=== PATIENT | male | born 1960 | race Caucasian/White ===

== ENCOUNTER → 2017-06-11 | Outpatient (CLI) | payer BC ==
--- NOTE | 2017-06-11 15:54 | XR ---
EXAMINATION TYPE: XR chest 2V DATE OF EXAM: 06/11/2017 COMPARISON: 04/30/2016 HISTORY: Fall and left-sided rib pain TECHNIQUE: Frontal and lateral views of the chest are obtained. FINDINGS: There is no focal air space opacity, pleural effusion, or pneumothorax seen. The cardiac silhouette size is within normal limits. No displaced fractures are seen. Right pulmonary vasculature is accentuated secondary to patient rotation and positioning. There is slight eventration of the rig ht hemidiaphragm incidentally noted. IMPRESSION: No acute cardiopulmonary process. If there is further concern for left rib fracture rib series could be performed.
--- NOTE | 2017-06-11 16:16 | CT ---
EXAMINATION TYPE: CT brain cspine wo con DATE OF EXAM: 06/11/2017 COMPARISON: NONE HISTORY: Fall yesterday with Left sided injury. CT DLP: 1508.2 mGycm. Automated Exposure Control for Dose Reduction was Utilized. TECHNIQUE: CT scan of the head and cervical spine are performed without contrast. FINDINGS: There is no acute intracranial hemorrhage, mass effect, or midline shift identified. The ventricles and sulci are within normal limits in size. The globes are intact. Mild mobility is seen within the right maxillary sinus and within the ethmoid sinuses. Scant mucosal thickening is also se en within the left maxillary sinus. Remaining paranasal sinuses are well aerated. Right vertebral art antonia is dominant with a diminutive left vertebral artery noted. Cervical spine is visualized in its entirety from C1 through upper thoracic levels and demonstrates s atisfactory alignment without evidence of acute fracture or dislocation. Multilevel mild degenerative change of the cervical spine is displayed as small posterior osteophyte complexes at C5-C6 and C6-C7 without canal stenosis. Prevertebral soft tissue appears within normal limits. The C1-C2 articulati on is unremarkable. IMPRESSION: 1. There is no acute fracture or dislocation evident in the cervical spine. 2. No acute intracranial hemorrhage, mass effect, or midline shift is seen. Mild paranasal sinus dise ase.
== END | disposition home or self-care (01) ==
LOC: RADCTMAIN 15:10
PROVIDERS: ATTEND Physician Assistant
DX: S09.90XA Unspecified injury of head, initial encounter (principal); R05 Cough
CPT/HCPCS: 70450; 71046; 72125

== ENCOUNTER → 2017-09-04 | Outpatient (CLI) | payer BC ==
[2017-09-04 15:03] LABS: Appearance,Urine Clear (Clear); Bilirubin,Urine Negative (Negative); Blood,Urine Negative (Negative); Color,Urine Yellow; Glucose,Urine (UA) Negative (Negative); Ketones,Urine Negative (Negative); Leukocyte Esterase,Urine Negative (Negative); Nitrite,Urine Negative (Negative); Protein,Urine Trace (Negative); Urobilinogen,Urine <2.0 mg/dL (<2.0)
[2017-09-04 15:05] LABS: HCT 44.4 % (39.0-53.0); HGB 15.6 gm/dL (13.0-17.5); MCH 32.7 pg (25.0-35.0); MCHC 35.1 g/dL (31.0-37.0); MCV 93.1 fL (80.0-100.0); Mean Platelet Volume 6.4; Platelet Count 290 k/uL (150-450); RBC 4.77 m/uL (4.30-5.90); RDW 12.6 % (11.5-15.5); WBC 7.8 k/uL (3.8-10.6)
[2017-09-04 15:10] LABS: INR 1.1 (<1.2); Partial Thromboplastin Time 22.3 sec (22.0-30.0); Prothrombin Time 10.7 sec (9.0-12.0)
[2017-09-04 15:36] LABS: ALT 30 U/L (21-72); AST 28 U/L (17-59); Albumin 4.1 g/dL (3.5-5.0); Alkaline Phosphatase 50 U/L (38-126); Anion Gap 15 mmol/L; Blood Urea Nitrogen 20 mg/dL (9-20); Calcium 9.5 mg/dL (8.4-10.2); Carbon Dioxide 22 mmol/L (22-30); Chloride 106 mmol/L (98-107); Glucose 111 mg/dL (74-99); Potassium 3.7 mmol/L (3.5-5.1); Sodium 143 mmol/L (137-145); Total Bilirubin 0.8 mg/dL (0.2-1.3); Total Protein 6.7 g/dL (6.3-8.2)
== END | disposition home or self-care (01) ==
LOC: LABPAT 14:20
PROVIDERS: ATTEND Orthopaedic Surgery Sports Medicine
DX: Z01.812 Encounter for preprocedural laboratory examination (principal)
CPT/HCPCS: 36415; 80053; 81003; 85027; 85610; 85730; 87070

== ENCOUNTER 2017-09-24 11:00 | Inpatient (IN) | payer BC ==
[2017-09-15 13:06] VITALS: BMI 23.5
[~2017-09-24 11:00] MED LIST: ACETAMINOPHEN TAB 500 MG TAB PO ONE; HYDROmorphone 0.5 MG/0.5 ML SYRINGE IVP PRN; MELOXICAM 7.5 MG TAB PO ONE; MIDAZOLAM 2 MG/2 ML VIAL IV PRN; MORPHINE SULFATE 4 MG/ML SYRINGE IV PRN; ONDANSETRON 4 MG/2 ML VIAL IVP ONE; ONDANSETRON 4 MG/2 ML VIAL IVP PRN; ROPIVACAINE 246.25 MG, EPINEPHrine 0.5 MG, KETOROLAC 30 MG, cloNIDine HCL/PF 80 MCG, WA... MISCELLANE ONE; TRANEXAMIC ACID 1,000 MG in SODIUM CHLORIDE 0.9% 50 ML IVPB ONE; ceFAZolin IN SWFI 2 GM/20 ML SYRINGE IVP ONE
[2017-09-24] MEDS ORDERED: MIDAZOLAM 2 MG/2 ML VIAL ONE ×2 (14:31→15:44)
[2017-09-24] MEDS ORDERED: LIDOCAINE 1% 20 ML VIAL (10MG/ML) FOR IV START INTRADERMA ONE (14:40)
[2017-09-24] MEDS: LACTATED RINGERS 1,000 ML IV SCH ×4 (14:40→23:03)
[2017-09-24] MEDS ORDERED: METOPROLOL TARTRATE 5 MG/5 ML VIAL IVP ONE (15:44)
[2017-09-24] MEDS ORDERED: MEPERIDINE 50 MG/ML SYRINGE ONE (15:44)
[2017-09-24] MEDS ORDERED: LIDOCAINE 1% INJ 10MG/ML (20 ML MDV) ONE (15:44)
[2017-09-24] MEDS ORDERED: ETOMIDATE 2 MG/ML 10 ML VIAL ONE (15:44)
[2017-09-24] MEDS ORDERED: fentaNYL (PF) 50 MCG/ML 2 ML AMP ONE (15:44)
[2017-09-24] MEDS ORDERED: ROCURONIUM BROMIDE 10 MG/ML 10 ML VIAL IV ONE (15:44)
[2017-09-24] MEDS ORDERED: SODIUM CHLORIDE 0.9% 100 ML BAG ONE (15:44)
[2017-09-24] MEDS ORDERED: TRANEXAMIC ACID 1,000 MG/10 ML VIAL ONE (15:44)
[2017-09-24] MEDS ORDERED: LACTATED RINGERS 1,000 ML IV ONE (16:55)
--- NOTE | 2017-09-24 17:18 | P.ONQ ---
Anesthesiology Proc Note - PNB - Peripheral Nerve Block Performed Left Adductor Canal Infusion Time Out Performed: Yes Procedure Start Time: 14:49 Procedure Stop Time: 14:59 Indication: Acute Post-Operative Pain, Requested by physician Sedation Type: Sedate with meaningful contact maintained Preparation: Sterile Dressing Position: Supine Catheter: Indwelling Needle Types: On-Q Needle Size: 100mm (4") Needle Gauge: 21 Technique: Ultrasound Injectate: 0.5% Ropivacaine (see comment for volume) (ropi .5% 20cc) Blood Aspirated: No Pain Paresthesia on Injection Noted: No Resistance on Injection: Normal Events: Uneventful and Well Tolerated
[2017-09-24] MEDS ORDERED: MAGNESIUM HYDROXIDE 2,400 MG/10 ML CUP PO PRN (17:36)
[2017-09-24] MEDS ORDERED: ONDANSETRON 4 MG/2 ML VIAL IVP PRN (17:36)
[2017-09-24] MEDS ORDERED: MORPHINE SULFATE 4MG/4ML SYRG IVP PRN ×2 (17:36)
[2017-09-24] MEDS ORDERED: ACETAMINOPHEN TAB 325 MG TAB PO PRN (17:36)
[2017-09-24] MEDS ORDERED: HYDROcodone/APAP 10-325MG 1 EACH TAB PO PRN (17:36)
[2017-09-24] MEDS ORDERED: hydrOXYzine PAMOATE 25 MG CAP PO PRN (17:36)
[2017-09-24] MEDS ORDERED: TEMAZEPAM 15 MG CAP PO PRN (17:36)
[2017-09-24] MEDS ORDERED: NA PHOS,M-B/NA PHOS,DI-BA 133 ML ENEMA RECTAL PRN (17:36)
[2017-09-24] MEDS ORDERED: NALOXONE 0.4 MG/ML 1 ML VIAL IV PRN (17:36)
[2017-09-24] MEDS ORDERED: traMADol 50 MG TAB PO PRN (17:36)
[2017-09-24] MEDS ORDERED: BISACODYL 10 MG SUPP RECTAL PRN (17:36)
[2017-09-24] MEDS ORDERED: DIAZEPAM 5 MG TAB PO PRN (17:36)
[2017-09-24] MEDS: fentaNYL (PF) 50 MCG/ML 2 ML AMP IVP ONE ×3 (17:46→18:27)
[2017-09-24] MEDS: MORPHINE SULFATE 4MG/4ML SYRG IVP ONE ×3 (17:55→19:08)
--- NOTE | 2017-09-24 18:10 | XR ---
EXAMINATION TYPE: XR knee limited LT DATE OF EXAM: 09/24/2017 COMPARISON: NONE HISTORY: Postop knee replacement TECHNIQUE: 2 views left knee FINDINGS: Tibial and femoral components of in place. No acute fractures are evident. Postsurgical robert nges are within the joint space. IMPRESSION: 1. No acute fractures post knee replacement
[2017-09-24] MEDS: ROPIVACAINE 1,100 MG, SODIUM CHLORIDE 0.9% 330 ML MISCELLANE PRN ×4 (18:19→18:45)
[2017-09-24] MEDS ORDERED: MIDAZOLAM 2 MG/2 ML VIAL IVP ONE (18:47)
--- NOTE | 2017-09-24 19:19 | OP ---
OPERATIVE REPORT DATE OF PROCEDURE: 09/24/2017 PREOPERATIVE DIAGNOSIS: Left knee osteoarthrosis. POSTOPERATIVE DIAGNOSIS: Left knee osteoarthrosis. OPERATION: Left total knee arthroplasty. SURGEON: Martin Peters MD. HEALTH SCREENER: Hector SCHWARTZ. ANESTHESIA: General endotracheal. ESTIMATED BLOOD LOSS: 100 mL. TOURNIQUET TIME: 51 minutes at 250 mmHg. COMPLICATIONS: None apparent. DRAINS: None. DISPOSITION: Postanesthesia Care Unit. INDICATIONS: Neel is a very pleasant 57-year-old male with longstanding left knee pain. History and physical examination are consistent with advanced left knee osteoarthrosis. He has been through significant nonoperative management up to this point. Further treatment options were discussed and he has decided to go forward with left total knee arthroplasty. The risks of the procedure were discussed with him in detail. These risks include but are not limited to risk of infection, nerve damage, bleeding, pain, and a risk of deep vein thrombosis which could lead to fatal pulmonary embolism. There is also risk of loosening of the implant which could require revision operation. The patient understands these risks. All of his questions were answered to his satisfaction. Appropriate informed consent was obtained. DESCRIPTION OF THE PROCEDURE: The patient was identified in the preoperative holding area. Surgical site was marked by both the patient and myself. He was given 2 grams of Ancef IV for prophylactic purposes. He was then transferred to the operative suite, where he was placed supine on the operating room table. A general anesthetic was then administered and dosed per the anesthesia without apparent complication. Examination under anesthesia was then performed. The patient was 5 degrees shy of full extension. He had 100 degrees of flexion. The medial collateral ligament, lateral collateral ligament and posterior cruciate ligaments were stable. Tourniquet was then placed high on the left upper thigh, well padded in preparation for surgery. The patient's left lower extremity was then prepped and draped in the usual sterile fashion. Standard surgical pause was then undertaken to ensure that we were operating on the correct site and that appropriate preoperative antibiotics had been given. All staff in the room were in agreement and we proceeded. The outlines of the patella were then marked with a surgical pen. A planned 12 cm vertical incision centered over the patella was marked with a surgical pen. The leg was then exsanguinated with an Esmarch dressing. The knee was then flexed and the tourniquet was inflated to 250 mmHg. The total tourniquet time for the procedure was 51 minutes. Incision was then made with a 10 blade scalpel. Dissection was carried down sharply to the overlying fascia. Great care was taken to minimize the skin flaps. The knee was then exposed using a standard medial parapatellar approach. A small cuff of quadriceps tendon was left for suturing. He was in a mild amount of valgus preoperatively. A very minimal medial release was made. This was done just for placement of the retractors. The medial meniscus was then excised. The lateral meniscus was also released anteriorly. The leg was then externally rotated. The patella was everted. The knee was flexed. The retractors were then placed to protect the collateral ligaments. I then proceeded to remove the infrapatellar fat pad. This was excised sharply tangentially with the fibers of the patellar tendon. I then proceeded to remove peripheral osteophytes. This was done with a rongeur. I then proceeded with the distal femoral resection. He did have a small flexion contracture. A planned 11 mm resection was then done. The femoral canal was then entered in the midline of the femur approximately 10 mm anterior to the origin of the posterior cruciate ligament. The jt was then advanced down the center of the femur and placed intramedullary. Based on preoperative radiographs, the angle between the anatomic and mechanical axis of the femur was approximately 4-5 degrees. The valgus angle of the distal femoral cutting guide was then set at 4 degrees for the left knee. This femoral cutting guide was then advanced over the intramedullary jt. This was seated firmly against the femur. I then, as mentioned, planned to take 11 mm off the distal femur. The cutting block was then secured onto the femur with pins. The jig was then removed and the distal femoral cut was made through the slot of the block. The pins were then removed. The distal femoral cutting block was removed. The accuracy of the distal femoral cuts was checked with 2 flat bars. I then proceeded to femoral sizing. The posterior referencing sizing guide was held firmly against the resected distal surface of the femur. The posterior condyles were resting on the posterior plane of the guide. The sizing stylus was then placed onto the anterior femur. The size was measured as a size 10. I then assessed for femoral rotation. The plan was for 3 degrees of external rotation. Three degrees of external rotation was placed onto the jig. The holes were then marked. I then confirmed the rotation by 3 separate methods. This was done using the epicondylar axis as well as Whitesides line and posterior referencing. It was deemed that the external rotation was proper. I then went forward with placing the femoral cutting block. This was placed over the previously placed pin holes. The Mauro wing was then placed onto the anterior slots to ensure that we would not notch the anterior femur with the anterior femoral cut. I then proceeded with the anterior femoral cut. This was flush with the anterior cortex of the femur. The posterior cuts were then made followed by the anterior chamfer cut and then the posterior chamfer cut. The cutting block was then removed. Throughout the resection, the collateral ligaments were protected with retractors. I then placed a trial size 10 femur. It fit very nicely medial to lateral and fit flush with the distal end of the femur. The drill holes were then made. I then proceeded with the tibial cut. I planned for a cruciate-retaining knee. The guide was placed and set for varus, valgus and for slope. The height was set for approximate 2 mm resection from the medial tibial plateau, which was the lower side. I was happy with the alignment and amount of resection. The cutting block was then pinned to the proximal tibia. The alignment jt was removed. The proximal tibia was resected with a reciprocating saw. Again this was done with retractors protecting the collateral ligaments as well as the posterior cruciate ligament. I then proceeded to evaluate the flexion and extension gaps. A 10 mm block was placed. The flexion and extension gaps were equal. I then proceeded with resection of the very minimal posterior osteophytes. This was done using a curved osteotome. This resected the posterior osteophytes, and posterior capsule stripping was done off the posterior aspect of the femur as well. The osteophytes were removed. I then proceeded with resection of the patella. The thickness of the patella was measured using the caliper. The thickness was 27 mm. The thickness of the anticipated patellar dome was taken into account. Resection was then performed and confirmed to be equal in 4 quadrants using a caliper. Approximately 14 mm of bone remained after the resection. A 38 x 9.5 standard patellar trial was then placed. The holes were drilled. The trial was then placed. I then proceeded with sizing the tibial plate. A size G tibial plate fit very nicely. I then placed the trial femur, the tibial tray and the patellar button. A 10 mm trial tibial insert was also placed. The components fit very nicely. He had full extension and flexion. The extension and flexion gaps were equal and stable to both varus and valgus stress. The patella tracked appropriately. The tibial tray rotation was marked with a Bovie. This was externally rotated properly. I then proceeded with tibial preparation. I first drilled the femoral holes and removed femoral component. The tibial tray was then set for proper external rotation as well as mediolateral placement onto the tibia. It was then pinned into place. I then proceeded with punching the keel. I then decided to proceed with cementing of all of our components. The knee was thoroughly irrigated with sterile saline solution with pulse lavage. The lateral geniculate artery was identified and cauterized. All blood was removed from the bone of the tibia, femur and patella with pulse lavage. I then proceed with cementing. Two packs of antibiotic bone cement were prepared on the back table by the cardiovascular surgical tech. I then proceeded with cementing of the tibia first. The cement was impacted into the keel as well as deeply seated in the bone. A second coat of cement was then placed. The tibia was then impacted into place. Excess cement was removed with [place]'s and Joker's. I then proceeded with cementing of the femoral component. Femoral component was also cemented using standard technique. Excess cement was removed. A 10 mm trial insert was then placed into the knee. It was brought into full extension with a constant axial load placed until the cement had hardened. The patellar component was then cemented. This was held firmly with a compressive device until the cement had dried. While the cement was drying, chlorhexidine wash solution was placed into the knee. When the cement had dried, the knee was taken out of extension. All excess cement was removed from around the prosthesis. I then trialed the knee with a 10 mm insert. The flexion and extension gaps were appropriate. The knee was stable. It came into full extension. I decided to go forward with the 10 mm cross-linked cruciate-retaining tibial insert. Polyethylene was then placed onto the tibial tray and locked into place. The knee was reduced. The knee was again further irrigated with sterile saline solution with antibiotic added. The tourniquet was then deflated. The total tourniquet time for the procedure was 51 minutes minutes at 250 mmHg. Final components were Bessy Persona, size 10 cruciate-retaining femoral component, size G tibial tray, a 10 mm medial- congruent cruciate-retaining polyethylene insert, and a 38 x 9.55 mm patella. I then proceeded with closure. Again the knee was thoroughly irrigated. The quadriceps tendon and the medial retinaculum were reapproximated with #2 Ethibond suture. The extensor mechanism was then closed with a running #2 Quill suture. Subcutaneous tissues were then closed with 2-0 Vicryl interrupted suture. The skin was closed with a running 3-0 Quill suture. Dermabond was applied to the incision. Sterile compressive dressing was then applied. All sponge and needle counts were deemed correct prior to closure. The patient tolerated the procedure without apparent complication. He was transferred to the recovery room in stable condition. MMODL / IJN: [id number] /
[2017-09-24] MEDS: MORPHINE SULFATE 4MG/4ML SYRG IVP PRN (20:48)
[2017-09-24] MEDS: ASPIRIN 325 MG TAB PO SCH (20:49)
[2017-09-24] MEDS: SENNOSIDES-DOCUSATE SODIUM 1 EACH TAB PO SCH (20:49)
[2017-09-24] MEDS: HYDROcodone/APAP 10-325MG 1 EACH TAB PO PRN (23:02)
--- NOTE | 2017-09-24 23:40 | CONS ---
CONSULTATION DATE OF SERVICE: 09/24/2017 REASON FOR CONSULTATION: Advice regarding asthma and other multiple medical issues requested by Dr. Peters. HISTORY OF PRESENT ILLNESS: This 57-year-old gentleman with a past medical history of asthma, history of DJD, history of pneumonia, hemoptysis, back spasms, C. diff and anxiety being followed by Dr. Lopez Branch in the outpatient setting was admitted after left total knee arthroplasty. There is no history of fever, rigors. No headache or loss of consciousness. The patient is complaining of occasional cough without much sputum at this time. The patient apparently has been working hard on restoring the power lines in the [facility] and had some scratches on the hand. PAST MEDICAL HISTORY: Asthma, musculoskeletal disorder, hemoptysis, C. diff, cholecystectomy, anxiety. HOME MEDICATIONS: 1. Adderall XR 20 mg p.o. daily. 2. Ventolin inhaler 1 puff daily p.r.n. 3. Hydrocodone 5 mg q.4h p.r.n. ALLERGIES: PENICILLIN. FAMILY HISTORY: History of non-Hodgkin lymphoma, breast cancer. SOCIAL HISTORY: No history of smoking. No history of alcohol intake. REVIEW OF SYSTEMS: ENT: No diminished hearing or diminished vision. CARDIOVASCULAR: No angina, palpitations. RESPIRATORY: As mentioned earlier. GI: No nausea or vomiting. : No dysuria. NERVOUS: No numbness or weakness. ALLERGY/IMMUNOLOGY: No asthma or hayfever. MUSCULOSKELETAL: As mentioned earlier. HEMATOLOGY/ONCOLOGY: No history of anemia. ENDOCRINE: No history of diabetes or hypothyroidism. CONSTITUTIONAL: As mentioned earlier. DERMATOLOGY: Negative. RHEUMATOLOGY: Negative. PSYCHIATRY: As mentioned earlier. PHYSICAL EXAM: Alert oriented x2. Pulse is 67, blood pressure 150/80, respirations 16, temperature is normal, pulse ox 98% on 3 L. HEENT: Conjunctivae normal. Oral mucosa moist. Neck is no jugular venous distention. No carotid bruits. No lymph node enlargement. CARDIOVASCULAR: S1, S2 muffled. No S4. No S4. RESPIRATORY: Breath sounds diminished in the bases. Bilateral scattered rhonchi and crackles. Expiratory wheezing also present. ABDOMEN: Soft, nontender. No mass palpable. LEGS: Status post left knee arthroplasty. NERVOUS SYSTEM: Higher functions as mentioned earlier. Moves all four limbs. No focal motor deficits. SKIN: No ulcer, rash or bleeding. LABS: Free T4 is 0.73. TSH is normal. Otherwise, cholesterol is 216. Vitamin D is 22.2. ASSESSMENT: 1. Status post left total knee arthroplasty. 2. Acute bronchial asthma. 3. History of pneumonia. 4. Hemoptysis. 5. History of back spasm. 6. History of Clostridium difficile. 7. History of mild cardiomyopathy. 8. History of anxiety. RECOMMENDATION AND DISCUSSION: In this 57-year-old gentleman who presented with multiple complex medical issues at this time, I recommend to continue current management and symptomatic treatment. I recommend a course of bronchodilators and incentive spirometry. Otherwise, DVT prophylaxis. We will follow the patient closely with Orthopedic Surgery, otherwise further recommendation to follow. Thank you for letting us participate in the care of this patient. The patient may be asked to follow with Dr. Branch closely. A chest x- ray may be done in case the chest symptoms does not improve. Discussed with the patient. Further recommendations to follow. MMODL / IJN: [id number] /
[2017-09-25] MEDS: ceFAZolin IN SWFI 2 GM/20 ML SYRINGE IVP SCH ×2 (00:40→09:00)
[2017-09-25] MEDS: MORPHINE SULFATE 4MG/4ML SYRG IVP PRN ×2 (02:28→07:23)
--- NOTE | 2017-09-25 06:51 | P.PN ---
Progress Note - Text Date:[09/25] Time:[636] 57-year-old male status post total knee replacement by Dr. Peters. Patient seen this morning and evaluated for pain control, patient has an On-Q pump with solution running at 10 mL an hour with a VAS of 6. Patient is also received oral pain medications by the nursing staff. I increase the rate on On-Q pump to 12 mL an hour. Continue On-Q pump infusion
[2017-09-25 07:30] LABS: Basophils % (A) 0 %; Eosinophils % (A) 0 %; HCT 40.4 % (39.0-53.0); HGB 13.7 gm/dL (13.0-17.5); Lymphocytes % (A) 8 %; MCH 31.9 pg (25.0-35.0); MCV 93.8 fL (80.0-100.0); Mean Platelet Volume 6.7; Monocytes # (A) 0.7 k/uL (0-1.0); Monocytes % (A) 6 %; Neutrophils # (A) 10.3 k/uL (1.3-7.7); Neutrophils % (A) 86 %; Platelet Count 242 k/uL (150-450); RBC 4.31 m/uL (4.30-5.90); WBC 12.1 k/uL (3.8-10.6)
[2017-09-25] MEDS: IPRATROPIUM-ALBUTEROL 3 ML NEB INHALATION SCH ×3 (07:38→19:42)
--- NOTE | 2017-09-25 08:37 | P.PN ---
Subjective Progress Note Date: 09/25/17 Principal diagnosis: Left TKA Patient is seen at bedside this morning. He is postop day #1 from a left total knee arthroplasty. He has pain at the surgical site as expected but denies any new complaints. He denies numbness, tingling or calf pain. Review of systems is negative for fever, chills, chest pain, shortness of breath or other Objective - Vital Signs Vital signs: Vital Signs Temp 97.3 F L 09/25/17 01:47 Pulse 66 09/25/17 07:51 Resp 16 09/25/17 01:47 BP 103/67 09/25/17 01:47 Pulse Ox 92 L 09/25/17 01:47 Intake & Output 09/24/17 09/25/17 09/25/17 18:59 06:59 18:59 Intake Total 2200 400 Output Total 100 502 Balance 2100 -102 Weight 80.739 kg Intake: IV 2200 400 Output: Urine 502 Estimated Blood Loss 100 - Exam Inspection reveals a benign surgical wound. There is no active bleeding or drainage. Neurovascular status is intact throughout the lower extremity with motor and sensation fully intact. Calf is soft and nontender. 2+ dorsalis pedis pulse and less than 2 second cap refill is present - Constitutional General appearance: Present: no acute distress - Psychiatric Psychiatric: Present: A&O x's 3, appropriate affect, intact judgment & insight - Labs CBC & Chem 7: 09/25/17 06:50 Labs: Abnormal Lab Results - Last 24 Hours (Table) 09/25/17 Range/Units 06:50 WBC 12.1 H (3.8-10.6) k/uL Neutrophils # 10.3 H (1.3-7.7) k/uL Assessment and Plan (1) Osteoarthritis of left knee Narrative/Plan: He will continue with routine postop orthopedic protocol including pain management, wound care, physical therapy, DVT prophylaxis and medical management. Expect that he will discharge to home tomorrow Current Visit: Yes Status: Acute Priority: Medium Code(s): M17.12 - UNILATERAL PRIMARY OSTEOARTHRITIS, LEFT KNEE SNOMED Code(s): [id number] Time with Patient: Less than 30
[2017-09-25] MEDS: NON-FORMULARY DRUG (Dextroamphetamine/Amphetamine [Adderall Xr] 20 MG) PO SCH (08:59)
[2017-09-25] MEDS: ASPIRIN 325 MG TAB PO SCH ×2 (09:00→20:09)
[2017-09-25] MEDS: MULTIVITAMINS, THERA 1 EACH TAB PO SCH (09:00)
[2017-09-25] MEDS ORDERED: HYDROmorphone 2 MG TAB PO PRN (10:25)
[2017-09-25] MEDS ORDERED: HYDROmorphone 4 MG TABLET PO PRN (10:28)
[2017-09-25] MEDS: HYDROcodone/APAP 10-325MG 1 EACH TAB PO PRN ×3 (11:29→23:30)
[2017-09-25] MEDS: HYDROmorphone 2 MG TAB PO PRN ×3 (13:20→20:09)
[2017-09-25] MEDS: LACTATED RINGERS 1,000 ML IV SCH (13:24)
--- NOTE | 2017-09-25 14:26 | PN ---
PROGRESS NOTE DATE OF SERVICE: 09/25/2017. This 57-year-old gentleman who was admitted after left total knee arthroplasty is improving significantly. No chest pain. No palpitations. No fever. The wheezing has improved significantly with breathing treatments. EXAM: Alert and oriented x3. Pulse 73, blood pressure 140/70, respiration 16, temperature 98.2, pulse ox 94% on room air. HEENT: Conjunctivae normal. NECK: No jugular venous distention. CARDIOVASCULAR: S1, S2 muffled. RESPIRATORY: A few scattered rhonchi. ABDOMEN: Soft. LEGS: Status post left knee arthroplasty. NERVOUS SYSTEM: No focal deficits. LABS: WBC 12.1. ASSESSMENT: 1. Status post left total knee arthroplasty. 2. Acute bronchial asthma. 3. History of pneumonia. 4. Hemoptysis history. 5. History of back spasms. 6. History of C difficile colitis. 7. History of myocardial myopathy. 8. History of anxiety. RECOMMENDATIONS AND DISCUSSION: I recommend to continue current medications and symptomatic treatments. Otherwise at this time I recommend to continue with the bronchodilators. Otherwise continue with the rest of the medications. Guarded prognosis because of multiple complex medical issues. Further recommendations to follow. MMODL / IJN: [id number] /
[2017-09-25] MEDS: SENNOSIDES-DOCUSATE SODIUM 1 EACH TAB PO SCH (21:28)
[2017-09-26] VITALS: RESP 16
[2017-09-26] MEDS: HYDROmorphone 2 MG TAB PO PRN ×2 (01:27→09:33)
[2017-09-26] MEDS: LACTATED RINGERS 1,000 ML IV SCH ×2 (01:30→10:36)
[2017-09-26] MEDS: HYDROcodone/APAP 10-325MG 1 EACH TAB PO PRN ×2 (05:32→11:31)
[2017-09-26] MEDS: IPRATROPIUM-ALBUTEROL 3 ML NEB INHALATION SCH (07:06)
[2017-09-26 09:26] VITALS: BP 130/80; PULSE 65; TEMP 98.3
[2017-09-26] MEDS: ASPIRIN 325 MG TAB PO SCH (09:32)
[2017-09-26] MEDS: NON-FORMULARY DRUG (Dextroamphetamine/Amphetamine [Adderall Xr] 20 MG) PO SCH (09:34)
--- NOTE | 2017-09-26 10:55 | P.DS ---
Providers Date of admission: 09/24/17 13:52 Expected date of discharge: 09/26/17 Attending physician: Martin Peters Consults: 09/24/17 17:36 Consult Physician Routine Consulting Provider: Syed Garcia Consult Reason/Comments: post op medical management Do you want consulting provider notified?: Yes Primary care physician: Lopez Ortiz Jose Carlos - Discharge Diagnosis(es) (1) Primary localized osteoarthritis of left knee Status: Acute (2) Status post total left knee replacement Status: Acute Hospital Course: This is a pleasant 57-year-old male last seen in our office with complaints of left knee pain. Patient has known history of degenerative arthritis of the left knee and presented to discuss options. After discussion and consideration , the patient elected to proceed with a left total knee arthroplasty. Patient was seen preoperatively, and medically cleared for surgery by his primary care physician. Patient was admitted to [facility] underwent left total knee arthroplasty on 09/24/[address] Peters. The procedure was performed without complications or sequelae. The patient is seen and evaluated at bedside today. Pain is well-controlled. Patient has no new complaints today and denies any fevers, chills, nausea, vomiting, or shortness of breath. Vital signs are stable. Dressing is clean dry and intact. Incision looks fine with no erythema or active drainage. Calf is soft and nontender. Patient has full foot and ankle motion without difficulty. Patient's left lower extremity is neurovascularly intact. The patient is orthopedically stable for discharge today. Pertinent Studies: Laboratory Tests 09/25/17 06:50 WBC 12.1 H RBC 4.31 Hgb 13.7 Hct 40.4 Neutrophils # 10.3 H Patient Condition at Discharge: Stable Plan - Discharge Summary Discharge Rx Participant: Yes New Discharge Prescriptions: New RX: Aspirin 325 mg PO BID #60 tab Docusate [Colace] 100 mg PO BID #60 capsule HYDROcodone/APAP 10-325MG [[place] 10-325] 1 tab PO Q4HR PRN #90 tab PRN Reason: Pain No Action Albuterol Inhaler [Ventolin Inhaler] 1 puff INHALATION RT-DAILY PRN PRN Reason: Shortness Of Breath Or Wheezing HYDROcodone/APAP 5-325MG [[place] 5-325] 1 tab PO Q4HR PRN PRN Reason: Pain Dextroamphetamine/Amphetamine [Adderall Xr] 20 mg PO DAILY Discharge Medication List Albuterol Inhaler [Ventolin Inhaler] 1 puff INHALATION RT-DAILY PRN 01/23/15 [ History] HYDROcodone/APAP 5-325MG [[place] 5-325] 1 tab PO Q4HR PRN 09/15/17 [History] Dextroamphetamine/Amphetamine [Adderall Xr] 20 mg PO DAILY 09/24/17 [History] Docusate [Colace] 100 mg PO BID #60 capsule 09/25/17 [Rx] HYDROcodone/APAP 10-325MG [[place] 10-325] 1 tab PO Q4HR PRN #90 tab 09/25/17 [Rx] RX: Aspirin 325 mg PO BID #60 tab 09/25/17 [Rx] Follow up Appointment(s)/Referral(s): Lopez Branch MD [Primary Care Provider] - 10/02/17 11:00 am Martin Peters MD [STAFF PHYSICIAN] - 10/09/17 2:30 pm [facility] Visiting Nurse, [NON-STAFF] - Patient Instructions/Handouts: Knee Replacement (DC) Activity/Diet/Wound Care/Special Instructions: keep wound clean and dry take meds as directed f/u with Dr. Peters WBAT Discharge Disposition: HOME WITH HOME HEALTH SERVICES
[2017-09-26] MEDS: MULTIVITAMINS, THERA 1 EACH TAB PO SCH (11:31)
--- NOTE | 2017-09-26 13:57 | PN ---
PROGRESS NOTE DATE OF SERVICE: 09/26/2017 This 57-year-old gentleman admitted after left total knee arthroplasty also had bronchospasm. The bronchus was reactive to updrafts. Patient is taking p.r.n. inhalers at home. No chest pain. No palpitations. No fever. On exam, alert and oriented x3. Pulse 65, blood pressure 130/80, respirations 16 , temperature 98.3, pulse ox 96% on room air. HEENT: Conjunctivae normal. NECK: No jugular venous distention. CARDIOVASCULAR SYSTEM: S1, S2 muffled. RESPIRATORY SYSTEM: Breath sounds diminished at the bases. A few scattered rhonchi. ABDOMEN: Soft, non-tender. NERVOUS SYSTEM: No focal deficit. LEGS: Status post surgery. Labs are noted. ASSESSMENT: 1. Status post left total knee arthroplasty. 2. Bronchial asthma. 3. History of pneumonia. 4. Hemoptysis history. 5. History of back spasm. 6. History of Clostridium difficile colitis. 7. History of . 8. History of anxiety. RECOMMENDATIONS AND DISCUSSION: I recommend to continue current medication, continue symptomatic treatment. Resume the home medications. I recommend [id number] bronchodilators. Closely follow with primary physician. The rest of the recommendations per Orthopedic Surgery. DVT prophylaxis. Further recommendations to follow. MMODL / IJN: [id number] / DIANA
== END 2017-09-26 13:00 | disposition home health service (06) | DRG 470 ==
LOC: 2ORMAIN 13:52 → 3SUR 17:40
PROVIDERS: ADMIT Orthopaedic Surgery Sports Medicine; ATTEND Orthopaedic Surgery Sports Medicine
PROC: 0SRD0J9 Replacement of Left Knee Joint with Synthetic Substitute, Cemented, Open Approach (ICD-10-PCS; principal; 2017-09-24 15:20)
DX: M17.12 Unilateral primary osteoarthritis, left knee (principal); I42.1 Obstructive hypertrophic cardiomyopathy; M25.762 Osteophyte, left knee; J45.909 Unspecified asthma, uncomplicated; I34.0 Nonrheumatic mitral (valve) insufficiency; E78.5 Hyperlipidemia, unspecified; F41.9 Anxiety disorder, unspecified; Q24.8 Other specified congenital malformations of heart; Z79.899 Other long term (current) drug therapy; Z86.19 Personal history of other infectious and parasitic diseases; Z87.19 Personal history of other diseases of the digestive system; Z88.0 Allergy status to penicillin; Z87.01 Personal history of pneumonia (recurrent); Z80.3 Family history of malignant neoplasm of breast; Z80.7 Family history of other malignant neoplasms of lymphoid, hematopoietic and related tissues; Z90.49 Acquired absence of other specified parts of digestive tract; Z79.891 Long term (current) use of opiate analgesic; Z87.39 Personal history of other diseases of the musculoskeletal system and connective tissue
CPT/HCPCS: 85025; 88300; 94640

== ENCOUNTER → 2018-12-28 | Outpatient (CLI) | payer BC ==
--- NOTE | 2018-12-28 12:07 | US ---
EXAMINATION TYPE: US abdomen limited DATE OF EXAM: 12/28/2018 COMPARISON: NONE CLINICAL HISTORY: 50-year-old male K42.9 Umbilical hernia without obstruction or gang. Technique: Real-time scanning was performed by the agricultural equipment sales manager utilizing Valsalva and additional dimitris laura maneuvers to assess for hernia. Assess for hernia at location of: Umbilicus Area of concern at umbilical region scanned. Valsalva maneuver performed. FINDINGS: No discrete bowel containing hernia is visualized at the umbilicus. However, there may be some 2.2 c m wide bulging fat at the level of the umbilicus. IMPRESSION: Possible 2.2 cm wide fatty umbilical hernia. No bowel containing hernia is seen.
== END | disposition home or self-care (01) ==
LOC: RADUSWWP 07:48
PROVIDERS: ATTEND Family Medicine
DX: K42.9 Umbilical hernia without obstruction or gangrene (principal)
CPT/HCPCS: 76705

== ENCOUNTER → 2019-01-26 | Outpatient (CLI) | payer BC ==
--- NOTE | 2019-01-26 17:39 | XR ---
EXAMINATION TYPE: XR chest 2V DATE OF EXAM: 01/26/2019 COMPARISON: 06/11/2017 HISTORY: Weakness and cough TECHNIQUE: Frontal and lateral views of the chest are obtained. FINDINGS: Heart and mediastinum are normal. Lungs are clear. There is cardiac surgery noted. Bony th orax appears intact. There is no pleural effusion. Diaphragm is normal. IMPRESSION: No cardiopulmonary disease. There is cardiac surgery since last exam.
== END | disposition home or self-care (01) ==
LOC: RADXRMAIN 16:56
PROVIDERS: ATTEND Physician Assistant
DX: R05 Cough (principal)
CPT/HCPCS: 71046

== ENCOUNTER 2019-01-27 12:42 | Inpatient (IN) | payer BC ==
--- NOTE | 2019-01-27 12:41 | CT ---
EXAMINATION TYPE: CT angio chest DATE OF EXAM: 01/27/2019 COMPARISON: Chest CT February 08, 2015 HISTORY: chest congestion, difficulty breathing CT DLP: 262.4 mGycm. Automated Exposure Control for Dose Reduction was Utilized. CONTRAST: CTA scan of the thorax is performed with IV Contrast, patient injected with 100 mL of Isovue 370, pul monary embolism protocol. MIP Images are created on CT scanner and reviewed. FINDINGS: LUNGS: Some respiratory motion artifact degradation is seen making evaluation slightly suboptimal fred ecially for subcentimeter nodules. Some dependent atelectasis in the left lower lobe is present. Some more central consolidation is seen with moderate peribronchial wall thickening. There is additional patchy linear scarring and/or atelectasis in the lingula. Right lung is clear. No pulmonary masses. N o pleural effusion or pneumothorax. MEDIASTINUM: There is satisfactory enhancement of the pulmonary artery and its branches, there is fi lling defect consistent with thrombus in the left lower lobe segmental branch beginning on axial imag e 73 with segmental and subsegmental extension. No significant right-sided embolism. Main pulmonary artery dilated 3.[address] findings consistent with underlying pulmonary hypertension. Adjace nt ascending aorta measures up to 4.0 cm in diameter axial image 68. There are no greater than 1 cm h ilar or mediastinal lymph nodes. No cardiomegaly or pericardial effusion is seen. Atrial septal matthew sure device is now identified. No suspicious right ventricular dilatation noted. OTHER: Cholecystectomy clips are present. IMPRESSION: 1. Exam is positive for pulmonary embolism distal left lower lobe with segmental and subsegmental ext ension. No CT evidence for RV strain. Results communicated to ordering physician via telephone at time of dictation. Patient instructed to go to emergency room for further management as requested by ordering physician. A Document Only message has been documented for Lopez Branch MD in the [employer] system on 01/27/2019 12:39 PM, Message ID [id number].
--- NOTE | 2019-01-27 13:06 | ED ---
General Adult HPI - General Chief complaint: Recheck/Abnormal Lab/Rx Stated complaint: Sent over from CT by Dr Branch Time Seen by Provider: 01/27/19 12:52 Source: patient, RN notes reviewed Mode of arrival: wheelchair Limitations: no limitations - History of Present Illness Initial comments: Patient is a pleasant 58-year-old male presenting to the emergency department from computed tomography scan. Patient had abnormal CT result and was advised come the emergency department. Patient states he has been having difficulty breathing over the past 4 days. Patient did have blood work and x-rays there were reported as negative and therefore computed tomography scan was ordered. Patient states he did have surgical procedure for PFO several weeks ago at [facility]. Patient did try and never lies or treatments at home prior to arrival without much improvement. Patient has seen pulmonary doctors previously however is unclear if he has any sort of chronic lung disease. Patient does have some burning in his chest as well. - Related Data Home Medications Medication Instructions Recorded Confirmed Albuterol Inhaler [Ventolin 1 puff INHALATION RT-DAILY PRN 01/23/15 09/24/17 Inhaler] HYDROcodone/APAP 5-325MG [[place] 1 tab PO Q4HR PRN 09/15/17 09/24/17 5-325] Dextroamphetamine/Amphetamine 20 mg PO DAILY 09/24/17 09/24/17 [Adderall Xr] Previous Rx's Medication Instructions Recorded Aspirin 325 mg PO BID #60 tab 09/25/17 Docusate [Colace] 100 mg PO BID #60 capsule 09/25/17 HYDROcodone/APAP 10-325MG [[place] 1 tab PO Q4HR PRN #90 tab 09/25/17 10-325] Allergies Allergy/AdvReac Type Severity Reaction Status Date / Time Penicillins Allergy Rash/Hives Verified 09/24/17 18:15 Review of Systems ROS Statement: Those systems with pertinent positive or pertinent negative responses have been documented in the HPI. ROS Other: All systems not noted in ROS Statement are negative. Constitutional: Denies: fever Eyes: Denies: eye pain ENT: Denies: ear pain Respiratory: Reports: cough, dyspnea Cardiovascular: Reports: chest pain Endocrine: Reports: fatigue Gastrointestinal: Denies: abdominal pain Genitourinary: Denies: dysuria Musculoskeletal: Denies: back pain Skin: Denies: rash Neurological: Denies: weakness Past Medical History Past Medical History: Asthma, Musculoskeletal Disorder, Pneumonia Additional Past Medical History / Comment(s): HEMOPTYSIS. back spasms, dx. w/C- Diff in July, still w/intermittent diarrhea, hx. mild cardiomyopathy-no treatment for History of Any Multi-Drug Resistant Organisms: C-DIFF Date of last positivie culture/infection: 2014 MDRO Source:: colon Past Surgical History: Heart Catheterization Additional Past Surgical History / Comment(s): CHEST TUBE (Infection, drainage), LEFT KNEE ARTHROSCOPY X3, RIGHT KNEE ARTHROSCOPY X3 LEFT SHOULDER, BONE GRAFT FROM RIGHT HIP TO LEFT ANKLE, BRONCHOSCOPY JAN 2014 Past Anesthesia/Blood Transfusion Reactions: No Reported Reaction Past Psychological History: Anxiety Smoking Status: Never smoker Past Alcohol Use History: None Reported Past Drug Use History: None Reported - Past Family History Mother Family Medical History: Cancer Additional Family Medical History / Comment(s): NON HODGKINS LYMPHOMA MOTHER, BREAST CA HALF SISTER General Exam Limitations: no limitations General appearance: alert, in no apparent distress Head exam: Present: atraumatic Eye exam: Present: normal appearance Neck exam: Present: normal inspection Respiratory exam: Present: rhonchi Cardiovascular Exam: Present: regular rate, normal rhythm GI/Abdominal exam: Present: soft. Absent: tenderness Extremities exam: Present: normal inspection. Absent: pedal edema, calf tenderness Neurological exam: Present: alert Psychiatric exam: Present: normal affect, normal mood Skin exam: Present: normal color Course Vital Signs 01/27/19 12:44 Temperature 97.6 F Pulse Rate 64 Respiratory 18 Rate Blood Pressure 100/70 O2 Sat by Pulse 100 Oximetry - Reevaluation(s) Reevaluation #1: 01/27/19 13:15 Case was discussed with practitioner Bina with Dr. Branch, who requests admission to [facility]. 01/27/19 13:22 Case was also discussed with Dr. tatum, who will admit. Admission orders written. Critical Care Time Critical Care Time: Yes Total Critical Care Time: 31 Disposition Clinical Impression: Pulmonary embolism Disposition: ADMITTED IP TO THIS HOSP Is patient prescribed a controlled substance at d/c from ED?: No Referrals: Lopez Branch MD [Primary Care Provider] - 1-2 days Decision Time: 13:23
[2019-01-27] MEDS ORDERED: HEPARIN SODIUM,PORCINE 10,000 UNIT/ML 1 ML VIAL IV ONE (13:07)
[2019-01-27] MEDS ORDERED: HEPARIN SODIUM,PORCINE 5,000 UNIT/ML 1 ML VIAL IV PRN (13:07)
[2019-01-27] MEDS ORDERED: NALOXONE 0.4 MG/ML 1 ML VIAL IV PRN (13:08)
[2019-01-27] MEDS ORDERED: HEPARIN SOD,PORK IN 0.45% NACL 25,000 UNIT in 0.45% NACL 1 250ML.BAG IV SCH (13:15)
[2019-01-27] MEDS: PANTOPRAZOLE 40 MG/10 ML VIAL IV SCH (13:51)
[2019-01-27] MEDS: MORPHINE SULFATE 4 MG/ML SYRINGE IV PRN ×3 (13:52→23:16)
[2019-01-27 13:59] LABS: ALT 20 U/L (21-72); AST 23 U/L (17-59); African American GFR (CKD) >90 (>60 ml/min/1.73 sqM); Alkaline Phosphatase 84 U/L (38-126); Anion Gap 10 mmol/L; Blood Urea Nitrogen 18 mg/dL (9-20); Calcium 9.3 mg/dL (8.4-10.2); Carbon Dioxide 26 mmol/L (22-30); Chloride 102 mmol/L (98-107); Glucose 91 mg/dL (74-99); Potassium 4.2 mmol/L (3.5-5.1); Sodium 138 mmol/L (137-145); Total Bilirubin 0.9 mg/dL (0.2-1.3)
[2019-01-27 14:05] LABS: Prothrombin Time 10.9 sec (9.0-12.0)
[2019-01-27 14:14] LABS: Basophils % (A) 1 %; Eosinophils # (A) 0.2 k/uL (0-0.7); Eosinophils % (A) 3 %; Lymphocytes # (A) 1.4 k/uL (1.0-4.8); Lymphocytes % (A) 22 %; MCH 31.5 pg (25.0-35.0); MCHC 33.4 g/dL (31.0-37.0); MCV 94.3 fL (80.0-100.0); Mean Platelet Volume 7.5; Monocytes # (A) 0.4 k/uL (0-1.0); Monocytes % (A) 7 %; Neutrophils # (A) 4.2 k/uL (1.3-7.7); Neutrophils % (A) 66 %; Platelet Count 299 k/uL (150-450); Poikilocytosis Slight; RBC 5.09 m/uL (4.30-5.90); RDW 14.9 % (11.5-15.5); WBC 6.4 k/uL (3.8-10.6)
--- NOTE | 2019-01-27 15:43 | P.CNPUL ---
History of Present Illness Consult date: 01/27/19 Reason for consult: dyspnea, cough, pulmonary embolism Chief complaint: shortness of breath and cough History of present illness: this is a 58-year-old white male with recent surgery about a week ago at [facility] for patent foramen ovale. His postoperative course was uneventful, patient was discharged home, and for the last few days he has been complaining of intermittent episodes of cough, wheezing, shortness of breath, and chest tightness. Recent chest x-ray done by his primary care physician showed no evidence of active disease. Patient was sent for a CT of the chest/CT angiogram which came back positive for segmental and subsegmental pulmonary embolism in the left lower lobe. Patient was admitted started on heparin, and I was asked to see him on consultation. Patient is familiar to our service, we have seen him in the past for mostly moderate persistent asthma, however over the last few years, his asthma has been basically stable. Patient used to see Dr. Dinero on a regular basis, and the last time he was seen in our office was over 2 years ago. At any rate patient was examined, and his CT in [place] of the chest was reviewed, indeed he does have a small tiny embolic disease involving the segmental and subsegmental artery of the left lower lobe, but on examination he clearly has findings of asthma exacerbation. Hence I have recommended that we continue heparin, I have also recommended that we start the patient on Solu-Medrol, updrafts, and on Symbicort.considering his cough is productive with yellow phlegm, I have also recommended Zithromax orally. Review of Systems Constitutional: denies fever chills or weight loss. Eyes: denies blurred vision, denies any lid lag . ENT: denies any earache or sore throat. Respiratory: intermittent episodes of cough wheezing shortness of breath and chest tightness. Cardiovascular: chest feels tight otherwise unremarkable. Denies any palpitations. Denies any syncope, denies any diaphoresis. Endocrine: denies any heat or cold intolerance. Denies any symptoms of diabetes. Gastrointestinal: denies nausea vomiting abdominal pain melena or hematemesis.n Genitourinary: denies dysuria frequency urgency hematuria. Musculoskeletal: Denies: back pain, denies any limitation in range of motion, no deformities. Skin: Denies any pruritus or rashes or erythema. Neurological: denies headache blurred vision dizziness. Past Medical History Past Medical History: Asthma, Musculoskeletal Disorder, Pneumonia Additional Past Medical History / Comment(s): HEMOPTYSIS. back spasms, dx. w/C- Diff in July, still w/intermittent diarrhea, hx. mild cardiomyopathy-no treatment for History of Any Multi-Drug Resistant Organisms: C-DIFF Date of last positivie culture/infection: 2014 MDRO Source:: colon Past Surgical History: Heart Catheterization Additional Past Surgical History / Comment(s): CHEST TUBE (Infection, drainage), LEFT KNEE ARTHROSCOPY X3, RIGHT KNEE ARTHROSCOPY X3 LEFT SHOULDER, BONE GRAFT FROM RIGHT HIP TO LEFT ANKLE, BRONCHOSCOPY JAN 2014 Past Anesthesia/Blood Transfusion Reactions: No Reported Reaction Past Psychological History: Anxiety Smoking Status: Never smoker Past Alcohol Use History: None Reported Past Drug Use History: None Reported - Past Family History Mother Family Medical History: Cancer Additional Family Medical History / Comment(s): NON HODGKINS LYMPHOMA MOTHER, BREAST CA HALF SISTER Medications and Allergies Home Medications Medication Instructions Recorded Confirmed Type Albuterol Inhaler [Ventolin 1 puff INHALATION RT-DAILY PRN 01/23/15 01/27/19 History Inhaler] Dextroamphetamine/Amphetamine 20 mg PO BID 09/24/17 01/27/19 History [Adderall Xr] HYDROcodone/APAP 10-325MG [[place] 1 tab PO Q4HR PRN #90 tab 09/25/17 01/27/19 Rx 10-325] Aspirin 325 mg PO DAILY 01/27/19 01/27/19 History Atorvastatin Calcium [Lipitor] 40 mg PO DAILY 01/27/19 01/27/19 History [place]-HYDROcod 8-10mg/5ml 5 ml PO Q12H PRN 01/27/19 01/27/19 History [Tussionex] Clopidogrel Bisulfate [Plavix] 75 mg PO DAILY 01/27/19 01/27/19 History Allergies Allergy/AdvReac Type Severity Reaction Status Date / Time Penicillins Allergy Rash/Hives Verified 01/27/19 13:57 Physical Exam Vitals: Vital Signs Temp Pulse Pulse Resp BP BP Pulse Ox 01/27/19 15:13 98.2 F 01/27/19 15:09 62 16 117/71 96 01/27/19 13:38 98.2 F 67 18 108/76 98 01/27/19 13:07 19 01/27/19 12:44 97.6 F 64 18 100/70 100 Intake and Output 01/27/19 01/27/19 01/27/19 06:59 14:59 22:59 Other: Weight 80.739 kg Limitations: no limitations General appearance: revealed 58-year-old white male in no distress. Very pleasant. On room air. Head exam: atraumatic, normocephalic. Eye exam: PERRLA, EOMI, no icterus. Neck exam: number masses, no rigidity, no JVD, no stridor. Respiratory exam: diffuse rhonchi and wheezes noted bilaterally more so on forced expiratory maneuver, symmetrical chest expansion noted. Cardiovascular Exam: normal S1 and S2, no S3 gallop. GI/Abdominal exam: soft nontender no megaly no rebound no guarding. Positive bowel sounds. Extremities exam: no clubbing edema or cyanosis. Neurological exam: alert oriented 3, no gross focal neurologic deficit. Psychiatric exam: normal mood affect and normal mental status examination. Skin exam: no rashes. No erythema. Results - Laboratory Findings CBC and BMP: 01/27/19 13:40 01/27/19 13:40 PT/INR, D-dimer PT 10.9 sec (9.0-12.0) 01/27/19 13:40 INR 1.0 (<1.2) 01/27/19 13:40 Abnormal lab findings: Abnormal Labs 01/27/19 13:40 ALT 20 L - Diagnostic Findings Chest x-ray: image reviewed CT scan - chest: image reviewed (as noted in HPI.) Assessment and Plan Assessment: impression: 1 acute exacerbation of mild intermittent asthma. 2 acute. Tracheobronchitis 3 acute left lower lobe pulmonary embolism 4history of degenerative joint disease, and history of arthroplasties and a rthroscopies in the last few years. recommendation: Patient will be placed on heparin, possibly transition to Eliquis or Xarelto in the next 24 hours, in the meantime treat the patient for his symptoms of asthma exacerbation, and reevaluate in the next 24 hours. Depending on his response to treatment for his asthma, consider discharge planning in the next 24-48 hours. We will continue to follow. Time with Patient: Greater than 30
[2019-01-27] MEDS: ASPIRIN 81 MG PO SCH (16:47)
[2019-01-27] MEDS: methylPREDNISolone SOD SUCCI 125 MG/2 ML VIAL IV SCH ×2 (16:48→23:17)
[2019-01-27] MEDS: DILTIAZEM ORAL 30 MG TAB PO SCH ×2 (16:48→20:25)
[2019-01-27] MEDS: AZITHROMYCIN 500 MG TAB PO SCH (16:48)
[2019-01-27] MEDS: IPRATROPIUM-ALBUTEROL 3 ML NEB INHALATION SCH ×2 (16:59→19:51)
[2019-01-27] MEDS: INSULIN ASPART (NovoLOG) 100 UNIT/ML VIAL SQ SCH ×2 (17:18→20:50)
[2019-01-27] MEDS: SYMBICORT 160-4.5 MCG INHALER INHALATION SCH (19:51)
[2019-01-27] MEDS: APIXABAN 5 MG TAB PO SCH (20:24)
[2019-01-27 20:45] LABS: Glucose,Whole Blood 155 mg/dL (75-99)
--- NOTE | 2019-01-27 22:13 | CONS ---
CONSULTATION Mr. Wong is a 58-year-old male who has been followed on a regular basis by Dr. Misty Rodriguez, has a history of hypertrophic cardiomyopathy and a recently diagnosed PFO with evidence of aneurysmal interatrial septum. He had episode of TIAs with loss of vision and subsequently underwent a PFO closure done recently at [facility]. For the last 3 to 4 days he has been complaining of progressive dyspnea with cough productive of yellowish sputum and progressive fatigue. Because of that, he came into the emergency room and underwent a CT angiogram of the chest that revealed a pulmonary embolism in the distal left lower lobe. Cardiology consultation was requested for further evaluation. The patient is usually active physically, has no exertional chest pain, exercises on a regular basis. Denies any dizziness or palpitation. Denies any PND, orthopnea or significant peripheral edema. He had his TIAs starting in May with subsequent episodes. His coronary risk factors are negative for hypertension or diabetes. He is a nonsmoker. He is hyperlipidemic. MEDICATIONS: His medications at home include: 1. Aspirin. 2. Plavix 75 mg daily. 3. Hydrocodone. 4. Lipitor 40 mg daily. 5. Albuterol on a p.r.n. basis. 6. Adderall. REVIEW OF SYSTEMS: RESPIRATORY SYSTEM: He had a productive cough. He has a prior history of asthma. Occasional wheezing. He did not note any fever at home, although he was feeling tired and sweaty. GI SYSTEM: No GI bleeding. No peptic ulcer disease. SYSTEM: No dysuria or hematuria. NERVOUS SYSTEM: No history of seizure. He has a history of TIA. PHYSICAL EXAMINATION: He is a 58-year-old male, alert, oriented, in no apparent distress. Blood pressure 117/70 with a heart rate in the 60s. HEAD: Normocephalic. EYES: Sclerae anicteric. NECK: Good carotid upstroke. No bruit. No jugular venous distention. LUNGS: Scattered wheezes bilaterally and rhonchi. HEART: Irregularly irregular. S1, S2. No S3 with systolic murmur. No diastolic murmur. ABDOMEN: Soft, nontender. Positive bowel sounds. No megaly. EXTREMITIES: No edema. Intact distal pulses. Both groins with no significant hematoma. LAB DATA: EKG revealed atrial fibrillation, rate of 111, with nonspecific ST-T wave changes. BUN and creatinine of 18 and 0.86. Troponin less than 0.012. White blood cells of 6.4, hemoglobin of 16.4. CT scan of the chest showed evidence of pulmonary embolism in the distal left lower lobe. IMPRESSION: 1. Progressive dyspnea with findings suggestive of bronchitis and bronchial asthma. 2. Atrial fibrillation, recent, probably related to the recent procedure of PFO closure. 3. Recent PFO closure. 4. History of hypertrophic cardiomyopathy. 5. History of transient ischemic attack. RECOMMENDATIONS: From the cardiac standpoint, the patient will be started on anticoagulation. I will stop the Plavix and continue on the aspirin. I will obtain echocardiogram with Doppler. He will be started on Cardizem to control his ventricular response, and depending on his progress, further recommendations will be made. Thank you for this consult. We will follow with you. DAJUAN / GAUTAM: [id number] /
--- NOTE | 2019-01-27 22:55 | P.HPIM ---
History of Present Illness H&P Date: 01/27/19 Chief Complaint: Shortness of breath Patient is a 58-year-old male with a known history of asthma, history of multiple TIAs/CVA due to PFO who recently had cardiac Patient with repair of PFO at [facility] about 2 weeks ago was sent to by his primary care physician for CT angiogram of the chest. Patient started having cough with some green sputum production since Thursday and is being followed by primary care physician. Patient was started on Levaquin which he did take 1 dose. Today patient has been having worsening shortness of breath and chest pain with deep breathing and was sent to ER for CT angiogram to rule out pulmonary embolism by his primary care physician. Patient otherwise denied any fever or chills. No nausea vomiting or abdominal pain. No diarrhea. CT angiogram of the chest showed segmental and subsegmental pulmonary embolism in the left lower lobe. Patient was started on heparin drip. Review of Systems Constitutional: Patient denies any fever or chills . No generalized weakness or weight loss. Abdomen: Patient denied nausea vomiting and diarrhea and abdominal pain. Cardiovascular: Patient denies any chest pain or short of breath no palpitations. Respiratory: Shortness of breath with cough and sputum production. Chest pain with deep breathing for any chest pain. Neurologic: Patient denied any numbness or tingling headache. Musculoskeletal: Patient denies any complaints of joint swelling or deformity. Skin: Negative Psychiatric: Negative Endocrine: No heat or cold intolerance. No recent weight gain. Genitourinary: No dysuria or hematuria. All other 14 point ROS negative except the above Past Medical History Past Medical History: Asthma, Musculoskeletal Disorder, Pneumonia Additional Past Medical History / Comment(s): HEMOPTYSIS. back spasms, dx. w/C- Diff in July, still w/intermittent diarrhea, hx. mild cardiomyopathy-no treatment for History of Any Multi-Drug Resistant Organisms: C-DIFF Date of last positivie culture/infection: 2014 MDRO Source:: colon Past Surgical History: Heart Catheterization Additional Past Surgical History / Comment(s): CHEST TUBE (Infection, drainage), LEFT KNEE ARTHROSCOPY X3, RIGHT KNEE ARTHROSCOPY X3 LEFT SHOULDER, BONE GRAFT FROM RIGHT HIP TO LEFT ANKLE, BRONCHOSCOPY JAN 2014 Past Anesthesia/Blood Transfusion Reactions: No Reported Reaction Past Psychological History: Anxiety Smoking Status: Never smoker Past Alcohol Use History: None Reported Past Drug Use History: None Reported - Past Family History Mother Family Medical History: Cancer Additional Family Medical History / Comment(s): NON [place] LYMPHOMA MOTHER, BREAST CA HALF SISTER Father Family Medical History: COPD Additional Family Medical History / Comment(s): Father of complications of a MVA. Medications and Allergies Home Medications Medication Instructions Recorded Confirmed Type Albuterol Inhaler [Ventolin 1 puff INHALATION RT-DAILY PRN 01/23/15 01/27/19 History Inhaler] Dextroamphetamine/Amphetamine 20 mg PO BID 09/24/17 01/27/19 History [Adderall Xr] HYDROcodone/APAP 10-325MG [Bulger 1 tab PO Q4HR PRN #90 tab 09/25/17 01/27/19 Rx 10-325] Aspirin 325 mg PO DAILY 01/27/19 01/27/19 History Atorvastatin Calcium [Lipitor] 40 mg PO DAILY 01/27/19 01/27/19 History CHLORPHEN-HYDROcod 8-10mg/5ml 5 ml PO Q12H PRN 01/27/19 01/27/19 History [Tussionex] Clopidogrel Bisulfate [Plavix] 75 mg PO DAILY 01/27/19 01/27/19 History Allergies Allergy/AdvReac Type Severity Reaction Status Date / Time Penicillins Allergy Rash/Hives Verified 01/27/19 13:57 Physical Exam Vitals: Vital Signs Temp Pulse Pulse Resp BP BP Pulse Ox 01/27/19 20:03 62 16 01/27/19 19:51 60 16 01/27/19 17:10 84 01/27/19 17:00 80 01/27/19 16:00 62 16 01/27/19 15:13 98.2 F 01/27/19 15:09 62 16 117/71 96 01/27/19 13:38 98.2 F 67 18 108/76 98 01/27/19 13:07 19 01/27/19 12:44 97.6 F 64 18 100/70 100 Intake and Output 01/27/19 01/27/19 01/27/19 06:59 14:59 22:59 Intake Total 400 Balance 400 Intake: Oral 400 Other: Weight 80.739 kg PHYSICAL EXAMINATION: Patient is lying in the bed comfortably, no acute distress, awake alert and oriented.. HEENT: Normocephalic. Neck is supple. Pupils reactive. Nostrils clear. Oral cavity is moist. Ears reveal no drainage. Neck reveals no JVD, carotid bruits, or thyromegaly. CHEST EXAMINATION: Trachea is central. Symmetrical expansion. Bilateral diffuse rhonchi and expiratory wheezing positive.. CARDIAC: Normal S1, S2 with no gallops. No murmurs ABDOMEN: Soft. Bowel sounds normal. No organomegaly. No abdominal bruits. Extremities: reveal no edema. No clubbing or cyanosis Neurologically awake, alert, oriented x3 with well-coordinated movements. No focal deficits noted Skin: No rash or skin lesions. Psychiatric: Coperative. Nonsuicidal Musculoskeletal: No joint swelling or deformity. Normal range of motion. Results CBC & Chem 7: 01/27/19 13:40 01/27/19 13:40 Labs: Abnormal Lab Results - Last 24 Hours (Table) 01/27/19 01/27/19 Range/Units 13:40 20:40 POC Glucose (mg/dL) 155 H (75-99) mg/dL ALT 20 L (21-72) U/L Thrombosis Risk Factor Assmnt - DVT/VTE Prophylaxis DVT/VTE Prophylaxis: Pharmacologic Prophylaxis ordered - Choose All That Apply Any of the Below Risk Factors Present?: Yes Each Factor Represents 1 point: Age 41-60 years Other Risk Factors: Yes Each Risk Factor Represents 3 Points: History of DVT/PE Other congenital or acquired thrombophilia - If yes, enter type in comment: No Thrombosis Risk Factor Assessment Total Risk Factor Score: 4 Thrombosis Risk Factor Assessment Level: Moderate Risk Assessment and Plan Assessment: Acute left lower lobe pulmonary embolism segmental and subsegmental Acute asthma exacerbation mild intermittent. Acute Tracheobronchitis Shortness of breath secondary to above PFO with recent repair at [facility] Multiple CVA/TIAs Degenerative joint disease Plan: Patient be continued on heparin drip. Can be changed to oral anticoagulants. Pulmonary was consulted for further recommendations. Patient be continued on breathing treatments and IV steroids. Continue with antibiotics in the form of azithromycin. Further recommendations based on the clinical course. Discussed the patient at bedside in detail. Time with Patient: Greater than 30
[2019-01-28] MEDS: MORPHINE SULFATE 4 MG/ML SYRINGE IV PRN ×5 (03:42→23:40)
[2019-01-28] MEDS: methylPREDNISolone SOD SUCCI 125 MG/2 ML VIAL IV SCH ×4 (05:45→23:40)
[2019-01-28 06:24] LABS: Glucose,Whole Blood 143 mg/dL (75-99)
[2019-01-28] MEDS: INSULIN ASPART (NovoLOG) 100 UNIT/ML VIAL SQ SCH ×4 (06:27→21:50)
[2019-01-28 06:52] LABS: Basophils % (A) 0 %; Eosinophils % (A) 0 %; HCT 45.9 % (39.0-53.0); Lymphocytes # (A) 0.6 k/uL (1.0-4.8); Lymphocytes % (A) 9 %; MCH 31.4 pg (25.0-35.0); MCHC 32.7 g/dL (31.0-37.0); MCV 95.8 fL (80.0-100.0); Mean Platelet Volume 6.6; Monocytes # (A) 0.3 k/uL (0-1.0); Monocytes % (A) 4 %; Neutrophils # (A) 5.4 k/uL (1.3-7.7); Neutrophils % (A) 85 %; Platelet Count 309 k/uL (150-450); RBC 4.79 m/uL (4.30-5.90); WBC 6.3 k/uL (3.8-10.6)
[2019-01-28 07:17] LABS: African American GFR (CKD) >90 (>60 ml/min/1.73 sqM); Anion Gap 8 mmol/L; Blood Urea Nitrogen 18 mg/dL (9-20); Calcium 9.2 mg/dL (8.4-10.2); Carbon Dioxide 28 mmol/L (22-30); Chloride 107 mmol/L (98-107); Glucose 106 mg/dL (74-99); Potassium 4.6 mmol/L (3.5-5.1); Sodium 143 mmol/L (137-145)
[2019-01-28] MEDS ORDERED: FUROSEMIDE 10 MG/ML 2 ML VIAL IV ONE (08:29)
[2019-01-28] MEDS: ASPIRIN 81 MG PO SCH (08:43)
[2019-01-28] MEDS: DILTIAZEM ORAL 60 MG TAB PO SCH ×3 (08:43→20:54)
[2019-01-28] MEDS: APIXABAN 5 MG TAB PO SCH ×2 (08:43→20:54)
[2019-01-28] MEDS: PANTOPRAZOLE 40 MG/10 ML VIAL IV SCH (08:43)
[2019-01-28] MEDS: SYMBICORT 160-4.5 MCG INHALER INHALATION SCH ×2 (08:52→19:46)
[2019-01-28] MEDS: IPRATROPIUM-ALBUTEROL 3 ML NEB INHALATION SCH ×4 (08:53→19:48)
--- NOTE | 2019-01-28 10:47 | ECHOF ---
Referral Reason:PE MEASUREMENTS -------- HEIGHT: 185.4 cm WEIGHT: 80.7 kg BP: RVIDd: 3.1 cm (< 3.3) IVSd: 1.5 cm (0.6 - 1.1) LVIDd: 3.9 cm (3.9 - 5.3) LVPWd: 1.7 cm (0.6 - 1.1) IVSs: 1.6 cm LVIDs: 2.6 cm LVPWs: 2.1 cm LAESV Index (A-L): 44.15 ml/m Ao Diam: 3.8 cm (2.0 - 3.7) AV Cusp: 2.4 cm (1.5 - 2.6) LA Diam: 4.4 cm (2.7 - 3.8) AV maxP.16 mmHg AV meanP.81 mmHg RAP: 5.00 mmHg RVSP: 23.20 mmHg FINDINGS -------- AFIB WITH RVR This was a technically good study. The left ventricular size is normal. There is moderate concentric left ventricular hypertrophy. O verall left ventricular systolic function is normal with, an EF between 55 - 60 %. Left ventricular fillimg pressure cannot be estimated due to Atrial fibrillation. LVOT Obstruction with Scott. Peak g radient is 66 mmHg. The right ventricle is normal in size. LA is severely dilated >40 ml/m2 RA appears enlarged. There is an interatrial closure device in place without evidence of shunt. Aortic valve is trileaflet and is mildly thickened. There is mild aortic valve sclerosis. Peak/me an gradient across the Aortic Valve is 49.16mmHg / 30.81mmHg. Moderate mitral regurgitation is present. Mild tricuspid regurgitation present. There is no evidence of pulmonary hypertension. The right v entricular systolic pressure, as measured by Doppler, is 23.20mmHg. There is no pulmonic regurgitation present. The aortic root size is normal. Normal inferior vena cava with normal inspiratory collapse consistent with estimated right atrial pre ssure of 5 mmHg. There is no pericardial effusion. CONCLUSIONS -------- 1. This was a technically good study. 2. The left ventricular size is normal. 3. There is moderate concentric left ventricular hypertrophy. 4. Overall left ventricular systolic function is normal with, an EF between 55 - 60 %. 5. Left ventricular fillimg pressure cannot be estimated due to Atrial fibrillation. 6. LVOT Obstruction with Scott. Peak gradient is 66 mmHg 7. The right ventricle is normal in size. 8. LA is severely dilated >40 ml/m2 9. RA appears enlarged. 10. There is an interatrial closure device in place without evidence of shunt. 11. Aortic valve is trileaflet and is mildly thickened. 12. There is mild aortic valve sclerosis. 13. Peak/mean gradient across the Aortic Valve is 49.16mmHg / 30.81mmHg. 14. Moderate mitral regurgitation is present. 15. Mild tricuspid regurgitation present. 16. There is no evidence of pulmonary hypertension. 17. The right ventricular systolic pressure, as measured by Doppler, is 23.20mmHg. 18. There is no pulmonic regurgitation present. 19. The aortic root size is normal. 20. Normal inferior vena cava with normal inspiratory collapse consistent with estimated right atrial pressure of 5 mmHg. 21. There is no pericardial effusion. [facility] MANAGER: Cydney Khan RDCS
[2019-01-28 11:25] LABS: Glucose,Whole Blood 171 mg/dL (75-99)
[2019-01-28] MEDS: METOPROLOL TARTRATE 25 MG TAB PO SCH ×2 (11:54→20:54)
--- NOTE | 2019-01-28 11:57 | PN ---
PROGRESS NOTE Mr. Wong is a 58-year-old male who presented with symptoms of progressive dyspnea and fatigue was noted to be in atrial fibrillation that appears to be recent. He recently underwent PFO closure at the [facility]. He had significant wheezing and coughing productive of yellow sputum. He continues to have wheezing and dyspnea although slightly better. He feels tight in the chest. He denies any palpitation. No syncope. No PND. No orthopnea. On the monitor, he is in atrial fibrillation and continues to have episodes of rapid ventricular response. He continued to be on Eliquis 10 mg twice a day, aspirin 81 mg daily, diltiazem 30 mg 3 times a day. He is on methylprednisolone, ipratropium, and Protonix. PHYSICAL EXAMINATION: Blood pressure 126/70 with the heart rate in the 90s. LUNGS: With scattered rhonchi and wheezes. HEART: Irregular, irregular. S1, S2. No S3 with systolic murmur at the base. ABDOMEN: Soft, nontender. Positive bowel sounds. No organomegaly. EXTREMITIES: No edema. LAB DATA: Lab data revealed BUN and creatinine of 18 and 0.72, potassium 4.6, hemoglobin of 15. IMPRESSION: 1. Atrial fibrillation of recent onset. 2. Progressive dyspnea with evidence of probable bronchitis and exacerbation of bronchial asthma. 3. Status post recent patent foramen ovale closure. 4. Left lower lobe pulmonary embolism. RECOMMENDATION: From the cardiac standpoint, I will increase the dose of his Cardizem to 60 mg 3 times a day, give him one dose of diuretics. Will follow his rhythm and depending on his progress, further recommendation will be made. If he does not convert back to sinus mechanism spontaneously, the patient would require cardioversion that can be done depending on his progress. MMODL / IJN: [id number] /
--- NOTE | 2019-01-28 12:17 | P.PN ---
Subjective Progress Note Date: 01/28/19 Principal diagnosis: Acute exacerbation of mild intermittent asthma, acute left lower lobe pulmonary embolism this is a 58-year-old white male with recent surgery about a week ago at [facility] for patent foramen ovale. His postoperative course was uneventful, patient was discharged home, and for the last few days he has been complaining of intermittent episodes of cough, wheezing, shortness of breath, and chest tightness. Recent chest x-ray done by his primary care physician showed no evidence of active disease. Patient was sent for a CT of the chest/CT angiogram which came back positive for segmental and subsegmental pulmonary embolism in the left lower lobe. Patient was admitted started on heparin, and I was asked to see him on consultation. Patient is familiar to our service, we have seen him in the past for mostly moderate persistent asthma, however over the last few years, his asthma has been basically stable. Patient used to see Dr. Dinero on a regular basis, and the last time he was seen in our office was over 2 years ago. At any rate patient was examined, and his CT in [place] of the chest was reviewed, indeed he does have a small tiny embolic disease involving the segmental and subsegmental artery of the left lower lobe, but on examination he clearly has findings of asthma exacerbation. Hence I have recommended that we continue heparin, I have also recommended that we start the patient on Solu-Medrol, updrafts, and on Symbicort.considering his cough is productive with yellow phlegm, I have also recommended Zithromax orally. On 01/28/2019 patient seen in follow-up on selective care unit, he is awake and alert, in no acute distress, room air pulse ox the 100%. No complaints of chest pain, but still lots of wheezing and congestion, and physical exam reveal diffuse rhonchi and wheezes bilaterally, no fever or chills, patient has been started on oral Eliquis, he is on IV steroids nebulized bronchodilators and antibiotics or his asthma exacerbation, did receive a dose of IV Lasix per cardiology today Objective - Vital Signs Vital signs: Vital Signs Temp 98.5 F 01/28/19 08:51 Pulse 62 01/28/19 08:51 Resp 16 01/28/19 08:51 BP 140/85 01/28/19 08:51 Pulse Ox 100 01/28/19 08:51 Intake & Output 01/27/19 01/28/19 01/28/19 18:59 06:59 18:59 Intake Total 400 240 444 Balance 400 240 444 Weight 80.739 kg 82.3 kg Intake: Oral 400 240 444 Other: # Voids 2 - Exam GENERAL EXAM: Alert, active, 50-year-old white male, on room air, with a pulse ox of 100% comfortable in no apparent distress. HEAD: Normocephalic/atraumatic. EYES: Normal reaction of pupils, equal size. Conjunctiva pink, sclera white. NOSE: Clear with pink turbinates. THROAT: No erythema or exudates. NECK: No masses, no JVD, no thyroid enlargement, no adenopathy. CHEST: No chest wall deformity. Symmetrical expansion. LUNGS: Equal air entry with diffuse rhonchi and wheezes, congestive cough CVS: Regular rate and rhythm, normal S1 and S2, no gallops, no murmurs, no rubs ABDOMEN: Soft, nontender. No hepatosplenomegaly, normal bowel sounds, no guarding or rigidity. EXTREMITIES: No clubbing, no edema, no cyanosis, 2+ pulses and upper and lower extremities. MUSCULOSKELETAL: Muscle strength and tone normal. SPINE: No scoliosis or deformity SKIN: No rashes CENTRAL NERVOUS SYSTEM: Alert and oriented -3. No focal deficits, tone is normal in all 4 extremities. PSYCHIATRIC: Alert and oriented -3. Appropriate affect. Intact judgment and insight. - Labs CBC & Chem 7: 01/28/19 06:21 01/28/19 06:21 Labs: Abnormal Lab Results - Last 24 Hours (Table) 01/27/19 01/27/19 01/28/19 Range/Units 13:40 20:40 06:21 Lymphocytes # 0.6 L (1.0-4.8) k/uL Glucose (74-99) mg/dL POC Glucose (mg/dL) 155 H (75-99) mg/dL ALT 20 L (21-72) U/L 01/28/19 01/28/19 01/28/19 Range/Units 06:21 06:22 11:23 Lymphocytes # (1.0-4.8) k/uL Glucose 106 H (74-99) mg/dL POC Glucose (mg/dL) 143 H 171 H (75-99) mg/dL ALT (21-72) U/L Assessment and Plan Plan: Assessment: 1 acute exacerbation of mild intermittent asthma. 2 acute. Tracheobronchitis 3 acute left lower lobe pulmonary embolism 4 history of degenerative joint disease, and history of arthroplasties and arthroscopies in the last few years. Plan: Continue current medical treatment, continue IV steroids, nebulized bronchodilators and antibiotics, continue Eliquis. Patient is still having some wheezing and congestion, and his dyspnea are more attributable to acute asthma exacerbation than the underlying pulmonary embolism. We'll continue inpatient treatment for another 24 hours, we'll reevaluate tomorrow, I performed a history & physical examination of the patient and discussed their management with my nurse practitioner, Janet Red. I reviewed the nurse practitioner's note and agree with the documented findings and plan of care. Lung sounds are positive for diffuse wheezes throughout the lung martell. The findings and the impression was discussed with the patient. I attest to the documentation by the nurse practitioner. Time with Patient: Less than 30
[2019-01-28] MEDS: AZITHROMYCIN 500 MG TAB PO SCH (17:04)
[2019-01-28 17:12] LABS: Glucose,Whole Blood 123 mg/dL (75-99)
[2019-01-28 21:07] LABS: Glucose,Whole Blood 157 mg/dL (75-99)
[2019-01-28] MEDS: MONTELUKAST 10 MG TAB PO SCH (21:50)
[2019-01-29] MEDS: MORPHINE SULFATE 4 MG/ML SYRINGE IV PRN ×5 (04:21→22:00)
[2019-01-29] MEDS: INSULIN ASPART (NovoLOG) 100 UNIT/ML VIAL SQ SCH ×4 (06:23→21:48)
[2019-01-29] MEDS: methylPREDNISolone SOD SUCCI 125 MG/2 ML VIAL IV SCH ×4 (06:23→23:13)
[2019-01-29 06:27] LABS: Glucose,Whole Blood 135 mg/dL (75-99)
[2019-01-29 07:12] LABS: Basophils % (A) 0 %; Eosinophils % (A) 0 %; HCT 42.8 % (39.0-53.0); HGB 14.3 gm/dL (13.0-17.5); Lymphocytes # (A) 0.6 k/uL (1.0-4.8); Lymphocytes % (A) 5 %; MCHC 33.5 g/dL (31.0-37.0); MCV 95.5 fL (80.0-100.0); Mean Platelet Volume 7.1; Monocytes # (A) 0.2 k/uL (0-1.0); Monocytes % (A) 2 %; Neutrophils # (A) 12.5 k/uL (1.3-7.7); Neutrophils % (A) 94 %; Platelet Count 340 k/uL (150-450); RBC 4.48 m/uL (4.30-5.90); RDW 13.9 % (11.5-15.5); WBC 13.4 k/uL (3.8-10.6)
[2019-01-29 07:24] LABS: African American GFR (CKD) >90 (>60 ml/min/1.73 sqM); Anion Gap 9 mmol/L; Blood Urea Nitrogen 23 mg/dL (9-20); Calcium 9.3 mg/dL (8.4-10.2); Carbon Dioxide 29 mmol/L (22-30); Chloride 104 mmol/L (98-107); Glucose 122 mg/dL (74-99); Potassium 4.1 mmol/L (3.5-5.1); Sodium 142 mmol/L (137-145)
[2019-01-29] MEDS: IPRATROPIUM-ALBUTEROL 3 ML NEB INHALATION SCH ×4 (07:28→20:19)
[2019-01-29] MEDS: SYMBICORT 160-4.5 MCG INHALER INHALATION SCH ×2 (07:28→20:18)
[2019-01-29] MEDS: PANTOPRAZOLE 40 MG TABLET PO SCH (08:54)
[2019-01-29] MEDS: METOPROLOL TARTRATE 25 MG TAB PO SCH ×2 (08:54→22:00)
[2019-01-29] MEDS: DILTIAZEM ORAL 60 MG TAB PO SCH ×3 (08:54→22:00)
[2019-01-29] MEDS: ASPIRIN 81 MG PO SCH (08:54)
[2019-01-29] MEDS: APIXABAN 5 MG TAB PO SCH ×2 (08:54→22:00)
--- NOTE | 2019-01-29 11:38 | P.PN ---
Subjective Progress Note Date: 01/29/19 Distal pleasant 50-year-old gentleman who presented with symptoms of progressive dyspnea and fatigue and was noted to be in atrial fibrillation that appears to be recent. He recently underwent PFO closure at the [facility]. He had significant wheezing and coughing with yellow sputum. Computed tomography scan was positive for pulmonary embolism distal left lower lobe with segmental and subsegmental extension with no CT evidence for RV strain. He is currently on Eliquis 10mg by mouth twice a day for anticoagulation. Echocardiogram showed normal LV systolic function with normal RV size and interatrial closure device in place without evidence of shunt. Upon examination, patient feels his breathing is somewhat better although continues to have cough with yellow sputum with significant chest congestion and chest tightness. He continues on DuoNeb, Zithromax, Symbicort, Cardizem 60 mg by mouth 3 times a day, metoprolol titrate 25 mg by mouth twice a day, Solu-Medrol 60 mg IV push every 4-6 hours. He is currently maintaining sinus rhythm. Laboratory values show BUN of 23 and cre atinine 0.69 with a normal hemoglobin. Objective - Vital Signs Vital signs: Vital Signs Temp 97.2 F L 01/29/19 08:00 Pulse 52 L 01/29/19 11:20 Resp 18 01/29/19 11:20 BP 113/60 01/29/19 08:00 Pulse Ox 98 01/29/19 08:00 Intake & Output 01/28/19 01/29/19 01/29/19 18:59 06:59 18:59 Intake Total 1506 200 370 Output Total 1200 Balance 306 200 370 Weight 84.5 kg Intake: IV 10 Invasive Line 2 10 Oral 1506 200 360 Output: Urine 1200 Other: Voiding Method Toilet Toilet # Voids 1 - Exam PHYSICAL EXAMINATION: HEENT: Head is atraumatic, normocephalic. Pupils equal, round. Neck is supple. There is no elevated jugular venous pressure. HEART EXAMINATION: Heart sounds regular, S1 and S2 with a systolic murmur at the base. CHEST EXAMINATION: Lungs reveal rhonchi and wheezing throughout. No chest wall tenderness is noted on palpation or with deep breathing. ABDOMEN: Soft, nontender. Bowel sounds are heard. No organomegaly noted. EXTREMITIES: 2+ peripheral pulses with no evidence of peripheral edema and no calf tenderness noted. NEUROLOGIC patient is awake, alert and oriented x3. . - Labs CBC & Chem 7: 01/29/19 06:14 01/29/19 06:14 Labs: Abnormal Lab Results - Last 24 Hours (Table) 01/28/19 01/28/19 01/28/19 Range/Units 11:23 17:01 21:06 WBC (3.8-10.6) k/uL Neutrophils # (1.3-7.7) k/uL Lymphocytes # (1.0-4.8) k/uL BUN (9-20) mg/dL Glucose (74-99) mg/dL POC Glucose (mg/dL) 171 H 123 H 157 H (75-99) mg/dL 01/29/19 01/29/19 01/29/19 Range/Units 06:14 06:14 06:21 WBC 13.4 H (3.8-10.6) k/uL Neutrophils # 12.5 H (1.3-7.7) k/uL Lymphocytes # 0.6 L (1.0-4.8) k/uL BUN 23 H (9-20) mg/dL Glucose 122 H (74-99) mg/dL POC Glucose (mg/dL) 135 H (75-99) mg/dL Assessment and Plan Assessment: #1 paroxysmal atrial fibrillation #2 progressive dyspnea with evidence of probable bronchitis and exacerbation of bronchial asthma #3 left lower lobe pulmonary embolism #4 status post recent patent foramen ovale closure Plan: From cardiology perspective, medications were reviewed and will continue the same. Increase activity. Continue anticoagulation. We will continue to follow the patient closely and provide further recommendations accordingly. COMMODITY BUYER note has been reviewed, I agree with a documented findings and plan of care. Patient was seen and examined.
[2019-01-29 11:49] LABS: Glucose,Whole Blood 130 mg/dL (75-99)
--- NOTE | 2019-01-29 12:31 | P.PN ---
Subjective Progress Note Date: 01/29/19 Principal diagnosis: Acute exacerbation of mild intermittent asthma, complicated by tracheobronchitis and acute left lower lobe pulmonary embolism. this is a 58-year-old white male with recent surgery about a week ago at [facility] for patent foramen ovale. His postoperative course was uneventful, patient was discharged home, and for the last few days he has been complaining of intermittent episodes of cough, wheezing, shortness of breath, and chest tightness. Recent chest x-ray done by his primary care physician showed no evidence of active disease. Patient was sent for a CT of the chest/CT angiogram which came back positive for segmental and subsegmental pulmonary embolism in the left lower lobe. Patient was admitted started on heparin, and I was asked to see him on consultation. Patient is familiar to our service, we have seen him in the past for mostly moderate persistent asthma, however over the last few years, his asthma has been basically stable. Patient used to see Dr. Dinero on a regular basis, and the last time he was seen in our office was over 2 years ago. At any rate patient was examined, and his CT in [place] of the chest was reviewed, indeed he does have a small tiny embolic disease involving the segmental and subsegmental artery of the left lower lobe, but on examination he clearly has findings of asthma exacerbation. Hence I have recommended that we continue heparin, I have also recommended that we start the patient on Solu-Medrol, updrafts, and on Symbicort.considering his cough is productive with yellow phlegm, I have also recommended Zithromax orally. On 01/28/2019 patient seen in follow-up on selective care unit, he is awake and alert, in no acute distress, room air pulse ox the 100%. No complaints of chest pain, but still lots of wheezing and congestion, and physical exam reveal diffuse rhonchi and wheezes bilaterally, no fever or chills, patient has been started on oral Eliquis, he is on IV steroids nebulized bronchodilators and antibiotics or his asthma exacerbation, did receive a dose of IV Lasix per cardiology today The patient is seen today 01/29/2019 in follow-up on the selective care unit. He remains awake and alert in no acute distress. Loose nonproductive cough. Still some bronchospasm and wheezing. He is however maintaining good O2 saturations in the high 90s on room air. He's afebrile. Hemodynamically stable. White count 13.4. Hemoglobin 14.3. Creatinine 0.69. He's been anticoagulated with Eliquis. He remains on Symbicort, Singulair and DuoNeb inhalations along with azithromycin and IV Solu-Medrol. Objective - Vital Signs Vital signs: Vital Signs Temp 97.2 F L 01/29/19 08:00 Pulse 64 01/29/19 11:31 Resp 18 01/29/19 11:20 BP 113/60 01/29/19 08:00 Pulse Ox 98 01/29/19 08:00 Intake & Output 01/28/19 01/29/19 01/29/19 18:59 06:59 18:59 Intake Total 1506 200 370 Output Total 1200 Balance 306 200 370 Weight 84.5 kg Intake: IV 10 Invasive Line 2 10 Oral 1506 200 360 Output: Urine 1200 Other: Voiding Method Toilet Toilet # Voids 1 - Exam GENERAL EXAM: Alert, 58-year-old male, on room air, with a pulse ox of 98% comfortable in no apparent distress. HEAD: Normocephalic/atraumatic. EYES: Normal reaction of pupils, equal size. Conjunctiva pink, sclera white. NOSE: Clear with pink turbinates. THROAT: No erythema or exudates. NECK: No masses, no JVD, no thyroid enlargement, no adenopathy. CHEST: No chest wall deformity. Symmetrical expansion. LUNGS: Equal air entry with bilateral end expiratory wheeze, few scattered rhonchi. CVS: Regular rate and rhythm, normal S1 and S2, no gallops, no murmurs, no rubs ABDOMEN: Soft, nontender. No hepatosplenomegaly, normal bowel sounds, no guarding or rigidity. EXTREMITIES: No clubbing, no edema, no cyanosis, 2+ pulses and upper and lower extremities. MUSCULOSKELETAL: Muscle strength and tone normal. SPINE: No scoliosis or deformity SKIN: No rashes CENTRAL NERVOUS SYSTEM: No focal deficits, tone is normal in all 4 extremities. PSYCHIATRIC: Alert and oriented -3. Appropriate affect. Intact judgment and insight. - Labs CBC & Chem 7: 01/29/19 06:14 01/29/19 06:14 Labs: Abnormal Lab Results - Last 24 Hours (Table) 01/28/19 01/28/19 01/29/19 Range/Units 17:01 21:06 06:14 WBC 13.4 H (3.8-10.6) k/uL Neutrophils # 12.5 H (1.3-7.7) k/uL Lymphocytes # 0.6 L (1.0-4.8) k/uL BUN (9-20) mg/dL Glucose (74-99) mg/dL POC Glucose (mg/dL) 123 H 157 H (75-99) mg/dL 01/29/19 01/29/19 01/29/19 Range/Units 06:14 06:21 11:37 WBC (3.8-10.6) k/uL Neutrophils # (1.3-7.7) k/uL Lymphocytes # (1.0-4.8) k/uL BUN 23 H (9-20) mg/dL Glucose 122 H (74-99) mg/dL POC Glucose (mg/dL) 135 H 130 H (75-99) mg/dL Assessment and Plan Assessment: Assessment: 1 acute exacerbation of mild intermittent asthma. 2 acute. Tracheobronchitis 3 acute left lower lobe pulmonary embolism 4 history of degenerative joint disease, and history of arthroplasties and arthroscopies in the last few years. Plan: The patient was seen and evaluated by Dr. Madera. He is currently stable from the pulmonary standpoint. Patient states he feels he is "not even close" to being back to his baseline. We'll continue with current treatment plan. Increase his activity as tolerated. We'll continue to follow. I, the cosigning physician, performed a history & physical examination of the patient. Lungs sounds bilateral end expiratory wheeze, few scattered rhonchi. Maintaining good O2 saturations in the 90s on room air. I discussed the assessment and plan of care with my nurse practitioner, Brenda Murrieta. I attest to the above note as dictated by her.
[2019-01-29 16:48] LABS: Glucose,Whole Blood 137 mg/dL (75-99)
[2019-01-29] MEDS: AZITHROMYCIN 500 MG TAB PO SCH (17:58)
[2019-01-29 21:31] LABS: Glucose,Whole Blood 119 mg/dL (75-99)
[2019-01-29] MEDS: MONTELUKAST 10 MG TAB PO SCH (22:00)
[2019-01-30] MEDS: MORPHINE SULFATE 4 MG/ML SYRINGE IV PRN ×5 (02:33→20:09)
[2019-01-30 06:19] LABS: Glucose,Whole Blood 124 mg/dL (75-99)
[2019-01-30] MEDS: INSULIN ASPART (NovoLOG) 100 UNIT/ML VIAL SQ SCH ×4 (06:19→22:41)
[2019-01-30] MEDS: methylPREDNISolone SOD SUCCI 125 MG/2 ML VIAL IV SCH ×3 (06:21→17:46)
[2019-01-30] MEDS: SYMBICORT 160-4.5 MCG INHALER INHALATION SCH (08:09)
[2019-01-30] MEDS: IPRATROPIUM-ALBUTEROL 3 ML NEB INHALATION SCH ×4 (08:09→19:35)
[2019-01-30] MEDS: guaiFENesin 600 MG TABLET.ER PO SCH ×2 (09:22→20:09)
[2019-01-30] MEDS: PANTOPRAZOLE 40 MG TABLET PO SCH (09:22)
[2019-01-30] MEDS: DILTIAZEM ORAL 60 MG TAB PO SCH ×3 (09:23→20:08)
[2019-01-30] MEDS: ASPIRIN 81 MG PO SCH (09:23)
[2019-01-30] MEDS: APIXABAN 5 MG TAB PO SCH ×2 (09:23→20:09)
[2019-01-30] MEDS: METOPROLOL TARTRATE 25 MG TAB PO SCH ×2 (09:23→20:09)
--- NOTE | 2019-01-30 11:15 | P.PN ---
Subjective Progress Note Date: 01/28/19 Principal diagnosis: Acute pulmonary embolism Acute asthma exacerbation Patient is a 58-year-old male with a known history of asthma, history of multiple TIAs/CVA due to PFO who recently had cardiac Patient with repair of PFO at [facility] about 2 weeks ago was sent to by his primary care physician for CT angiogram of the chest. Patient started having cough with some green sputum production since Thursday and is being followed by primary care physician. Patient was started on Levaquin which he did take 1 dose. Today patient has been having worsening shortness of breath and chest pain with deep breathing and was sent to ER for CT angiogram to rule out pulmonary embolism by his primary care physician. Patient otherwise denied any fever or chills. No nausea vomiting or abdominal pain. No diarrhea. CT angiogram of the chest showed segmental and subsegmental pulmonary embolism in the left lower lobe. Patient was started on heparin drip. 01/28/2019 Patient is still complaining of shortness of breath. Otherwise being continued on anticoagulation with Eliquis. Currently and antibodies the form of azithromycin. Continued on breathing treatments and steroids. Pulmonary and Cardiology on board. No fever no chills. No other acute overnight issues. Current medications reviewed. Objective - Vital Signs Vital signs: Vital Signs Temp 98.2 F 01/28/19 16:00 Pulse 84 01/28/19 16:13 Resp 16 01/28/19 16:00 BP 131/89 01/28/19 16:00 Pulse Ox 96 01/28/19 16:00 Intake & Output 01/27/19 01/28/19 01/28/19 18:59 06:59 18:59 Intake Total 288 634 3264 Output Total 1200 Balance 400 240 66 Weight 80.739 kg 82.3 kg Intake: Oral 939 820 8330 Output: Urine 1200 Other: # Voids 2 - Exam PHYSICAL EXAMINATION: Patient is lying in the bed comfortably, no acute distress, awake alert and oriented.. HEENT: Normocephalic. Neck is supple. Pupils reactive. Nostrils clear. Oral cavity is moist. Ears reveal no drainage. Neck reveals no JVD, carotid bruits, or thyromegaly. CHEST EXAMINATION: Trachea is central. Symmetrical expansion. Bilateral diffuse Diffuse rhonchi and crackles.. CARDIAC: Normal S1, S2 with no gallops. No murmurs ABDOMEN: Soft. Bowel sounds normal. No organomegaly. No abdominal bruits. Extremities: reveal no edema. No clubbing or cyanosis Neurologically awake, alert, oriented x3 with well-coordinated movements. No focal deficits noted Skin: No rash or skin lesions. Psychiatric: Coperative. Nonsuicidal Musculoskeletal: No joint swelling or deformity. Normal range of motion. - Labs CBC & Chem 7: 01/29/19 06:14 01/29/19 06:14 Labs: Abnormal Lab Results - Last 24 Hours (Table) 01/27/19 01/28/19 01/28/19 Range/Units 20:40 06:21 06:21 Lymphocytes # 0.6 L (1.0-4.8) k/uL Glucose 106 H (74-99) mg/dL POC Glucose (mg/dL) 155 H (75-99) mg/dL 01/28/19 01/28/19 01/28/19 Range/Units 06:22 11:23 17:01 Lymphocytes # (1.0-4.8) k/uL Glucose (74-99) mg/dL POC Glucose (mg/dL) 143 H 171 H 123 H (75-99) mg/dL Assessment and Plan Assessment: Acute left lower lobe pulmonary embolism segmental and subsegmental Acute asthma exacerbation mild intermittent. Acute Tracheobronchitis Shortness of breath secondary to above PFO with recent repair at [facility] [place] Multiple CVA/TIAs Degenerative joint disease Plan: Patient was continued on heparin drip. changed to oral anticoagulants. Patient be continued on breathing treatments and IV steroids. Continue with antibiotics in the form of azithromycin. Further recommendations based on the clinical course. Pulmonary and cardiology on board. Discussed the patient at bedside in detail. Time with Patient: Greater than 30
--- NOTE | 2019-01-30 11:18 | P.PN ---
Subjective Progress Note Date: 01/29/19 Principal diagnosis: Acute pulmonary embolism Acute asthma exacerbation Patient is a 58-year-old male with a known history of asthma, history of multiple TIAs/CVA due to PFO who recently had cardiac Patient with repair of PFO at [facility] about 2 weeks ago was sent to by his primary care physician for CT angiogram of the chest. Patient started having cough with some green sputum production since Thursday and is being followed by primary care physician. Patient was started on Levaquin which he did take 1 dose. Today patient has been having worsening shortness of breath and chest pain with deep breathing and was sent to ER for CT angiogram to rule out pulmonary embolism by his primary care physician. Patient otherwise denied any fever or chills. No nausea vomiting or abdominal pain. No diarrhea. CT angiogram of the chest showed segmental and subsegmental pulmonary embolism in the left lower lobe. Patient was started on heparin drip. 01/28/2019 Patient is still complaining of shortness of breath. Otherwise being continued on anticoagulation with Eliquis. Currently and antibodies the form of azithromycin. Continued on breathing treatments and steroids. Pulmonary and Cardiology on board. No fever no chills. No other acute overnight issues. 01/29/2019 Patient says that he still having shortness of breath but with slight improvement. Still having expiratory wheezing and scattered rhonchi. Currently on oxygen whereas of cannula high flow. Continued on IV steroids, breathing treatments and antibiotics and also on anticoagulation with Eliquis. No other acute overnight issues. Current medications reviewed. Objective - Vital Signs Vital signs: Vital Signs Temp 98.2 F 01/29/19 16:00 Pulse 70 01/29/19 20:28 Resp 16 01/29/19 20:00 BP 138/75 01/29/19 20:00 Pulse Ox 97 01/29/19 20:00 Intake & Output 01/29/19 01/29/19 01/30/19 06:59 18:59 06:59 Intake Total 200 800 Balance 200 800 Weight 84.5 kg Intake: IV 40 Invasive Line 2 10 Invasive Line 3 30 Oral 200 760 Other: Voiding Method Toilet Toilet # Voids 1 1 1 - Exam PHYSICAL EXAMINATION: Patient is lying in the bed comfortably, no acute distress, awake alert and oriented.. HEENT: Normocephalic. Neck is supple. Pupils reactive. Nostrils clear. Oral cavity is moist. Ears reveal no drainage. Neck reveals no JVD, carotid bruits, or thyromegaly. CHEST EXAMINATION: Trachea is central. Symmetrical expansion. Expiratory wheezing and scattered rhonchi... CARDIAC: Normal S1, S2 with no gallops. No murmurs ABDOMEN: Soft. Bowel sounds normal. No organomegaly. No abdominal bruits. Extremities: reveal no edema. No clubbing or cyanosis Neurologically awake, alert, oriented x3 with well-coordinated movements. No focal deficits noted Skin: No rash or skin lesions. Psychiatric: Coperative. Nonsuicidal Musculoskeletal: No joint swelling or deformity. Normal range of motion. - Labs CBC & Chem 7: 01/29/19 06:14 01/29/19 06:14 Labs: Abnormal Lab Results - Last 24 Hours (Table) 01/29/19 01/29/19 01/29/19 Range/Units 06:14 06:14 06:21 WBC 13.4 H (3.8-10.6) k/uL Neutrophils # 12.5 H (1.3-7.7) k/uL Lymphocytes # 0.6 L (1.0-4.8) k/uL BUN 23 H (9-20) mg/dL Glucose 122 H (74-99) mg/dL POC Glucose (mg/dL) 135 H (75-99) mg/dL 01/29/19 01/29/19 01/29/19 Range/Units 11:37 16:45 21:30 WBC (3.8-10.6) k/uL Neutrophils # (1.3-7.7) k/uL Lymphocytes # (1.0-4.8) k/uL BUN (9-20) mg/dL Glucose (74-99) mg/dL POC Glucose (mg/dL) 130 H 137 H 119 H (75-99) mg/dL Assessment and Plan Assessment: Acute left lower lobe pulmonary embolism segmental and subsegmental Acute asthma exacerbation mild intermittent. Acute Tracheobronchitis Shortness of breath secondary to above PFO with recent repair at [facility] [place] Multiple CVA/TIAs Degenerative joint disease Plan: Patient was continued on heparin drip. changed to oral anticoagulants. Patient be continued on breathing treatments and IV steroids. Continue with antibiotics in the form of azithromycin. Further recommendations based on the clinical course. Pulmonary and cardiology on board. Discussed the patient at bedside in detail. Time with Patient: Greater than 30
--- NOTE | 2019-01-30 11:36 | P.PN ---
Subjective Progress Note Date: 01/30/19 Principal diagnosis: Acute exacerbation of mild intermittent asthma, acute left lower lobe pulmonary embolism this is a 58-year-old white male with recent surgery about a week ago at [facility] for patent foramen ovale. His postoperative course was uneventful, patient was discharged home, and for the last few days he has been complaining of intermittent episodes of cough, wheezing, shortness of breath, and chest tightness. Recent chest x-ray done by his primary care physician showed no evidence of active disease. Patient was sent for a CT of the chest/CT angiogram which came back positive for segmental and subsegmental pulmonary embolism in the left lower lobe. Patient was admitted started on heparin, and I was asked to see him on consultation. Patient is familiar to our service, we have seen him in the past for mostly moderate persistent asthma, however over the last few years, his asthma has been basically stable. Patient used to see Dr. Dinero on a regular basis, and the last time he was seen in our office was over 2 years ago. At any rate patient was examined, and his CT in [place] of the chest was reviewed, indeed he does have a small tiny embolic disease involving the segmental and subsegmental artery of the left lower lobe, but on examination he clearly has findings of asthma exacerbation. Hence I have recommended that we continue heparin, I have also recommended that we start the patient on Solu-Medrol, updrafts, and on Symbicort.considering his cough is productive with yellow phlegm, I have also recommended Zithromax orally. On 01/28/2019 patient seen in follow-up on selective care unit, he is awake and alert, in no acute distress, room air pulse ox the 100%. No complaints of chest pain, but still lots of wheezing and congestion, and physical exam reveal diffuse rhonchi and wheezes bilaterally, no fever or chills, patient has been started on oral Eliquis, he is on IV steroids nebulized bronchodilators and antibiotics or his asthma exacerbation, did receive a dose of IV Lasix per cardiology today On 01/30/2019 patient seen in follow-up on selective care unit, he is awake and alert, though complaining of being significantly bronchospastic and congested, and states he does not feel much improvement in the way of dyspnea and congestion. Not able to bring up much sputum. Lung sounds reveal diffuse rhonchi and wheezes, patient has been treated with IV steroids, Symbicort, nebulized bronchodilators. Sputum culture showed no growth. Todays labs have been noted. Objective - Vital Signs Vital signs: Vital Signs Temp 97.8 F 01/30/19 08:00 Pulse 72 01/30/19 08:22 Resp 16 01/30/19 08:00 BP 125/73 01/30/19 08:00 Pulse Ox 95 01/30/19 08:12 Intake & Output 01/29/19 01/30/19 01/30/19 18:59 06:59 18:59 Intake Total 1047 250 Balance 1047 250 Weight 84.3 kg Intake: IV 40 10 Invasive Line 2 10 Invasive Line 3 30 10 Oral 1007 240 Other: Voiding Method Toilet # Voids 1 1 - Exam GENERAL EXAM: Alert, active, 50-year-old white male, on room air, with a pulse ox of 95% comfortable in no apparent distress. HEAD: Normocephalic/atraumatic. EYES: Normal reaction of pupils, equal size. Conjunctiva pink, sclera white. NOSE: Clear with pink turbinates. THROAT: No erythema or exudates. NECK: No masses, no JVD, no thyroid enlargement, no adenopathy. CHEST: No chest wall deformity. Symmetrical expansion. LUNGS: Equal air entry with diffuse rhonchi and wheezes, congestive cough CVS: Regular rate and rhythm, normal S1 and S2, no gallops, no murmurs, no rubs ABDOMEN: Soft, nontender. No hepatosplenomegaly, normal bowel sounds, no guarding or rigidity. EXTREMITIES: No clubbing, no edema, no cyanosis, 2+ pulses and upper and lower extremities. MUSCULOSKELETAL: Muscle strength and tone normal. SPINE: No scoliosis or deformity SKIN: No rashes CENTRAL NERVOUS SYSTEM: Alert and oriented -3. No focal deficits, tone is no rmal in all 4 extremities. PSYCHIATRIC: Alert and oriented -3. Appropriate affect. Intact judgment and insight. - Labs CBC & Chem 7: 01/29/19 06:14 01/29/19 06:14 Labs: Abnormal Lab Results - Last 24 Hours (Table) 01/29/19 01/29/19 01/29/19 Range/Units 11:37 16:45 21:30 POC Glucose (mg/dL) 130 H 137 H 119 H (75-99) mg/dL 01/30/19 Range/Units 06:18 POC Glucose (mg/dL) 124 H (75-99) mg/dL Microbiology - Last 24 Hours (Table) 01/30/19 08:12 Gram Stain - Final Sputum Sputum Culture - Final Assessment and Plan Plan: Assessment: 1 acute exacerbation of mild intermittent asthma. 2 acute. Tracheobronchitis 3 acute left lower lobe pulmonary embolism 4 history of degenerative joint disease, and history of arthroplasties and arthroscopies in the last few years. Plan: Continue current treatment, IV steroids, we'll switch Symbicort 2 Pulmicort and Perforomist, continue DuoNeb, patient is still quite bronchospastic and congested, we'll add Mucinex, will switch antibiotic coverage from Zithromax to Levaquin, will consider possibility of bronchoscopy in the next 24 hours if there is no improvement. For now continue with medical treatment. I performed a history & physical examination of the patient and discussed their management with my nurse practitioner, Janet Red. I reviewed the nurse practitioner's note and agree with the documented findings and plan of care. Lung sounds are positive for diffuse wheezes throughout the lung martell. The findings and the impression was discussed with the patient. I attest to the documentation by the nurse practitioner. Time with Patient: Less than 30
[2019-01-30 11:46] LABS: Glucose,Whole Blood 173 mg/dL (75-99)
--- NOTE | 2019-01-30 12:39 | PN ---
PROGRESS NOTE Mr. Wong is a 58-year-old male with a known history of PFO status post closure done at [facility] recently, who presented with symptoms of progressive dyspnea and wheezing with productive cough. He was in atrial fibrillation but converted back to sinus mechanism. He has a history of hypertrophic cardiomyopathy and was diagnosed with small pulmonary embolism. He continued to have dyspnea today, although with mild improvement, but continues to have cough. He denies any wheezing. He has tightness in the chest. He has no palpitation or syncope. He continues to be at this time on aspirin 81 mg daily, Eliquis 5 mg twice a day, diltiazem 60 mg 3 times a day and metoprolol tartrate 25 mg twice a day. PHYSICAL EXAMINATION: Blood pressure 125/70 with a heart rate in the 60s. Lungs with rhonchi bilaterally with no significant wheezes. HEART: Regular rate and rhythm S1, S2. No S3 with systolic murmur. No diastolic murmur. No rub. ABDOMEN: Soft nontender. EXTREMITIES: No edema. LAB DATA: Lab data revealed BUN and creatinine 23 and 0.69, potassium 4.1, hemoglobin of 14.3. IMPRESSION: 1. Persistent dyspnea with symptoms consistent with tracheobronchitis and exacerbation of bronchial asthma. 2. Atrial fibrillation, back in normal sinus rhythm. 3. Left lower lobe pulmonary embolism. 4. Status post PFO closure. 5. History of hypertrophic cardiomyopathy. RECOMMENDATIONS: From the cardiac standpoint, we will continue present therapy. He may require bronchoscopy to further evaluate his pulmonary status. From the cardiac standpoint, I will continue on the present medical regimen. We will follow his rate and depending on his rate, the dose of his Cardizem and beta miguelangel can be further adjusted. MMODL / IJN: [id number] /
[2019-01-30] MEDS: LEVOFLOXACIN 500 MG TAB PO SCH (13:53)
[2019-01-30 16:54] LABS: Glucose,Whole Blood 94 mg/dL (75-99)
[2019-01-30] MEDS: BUDESONIDE 1 MG/2 ML NEBU INHALATION SCH (19:35)
[2019-01-30] MEDS: FORMOTEROL FUMARATE 20 MCG/2 ML NEBU INHALATION SCH (19:48)
[2019-01-30] MEDS: MONTELUKAST 10 MG TAB PO SCH (20:09)
[2019-01-30 21:05] LABS: Glucose,Whole Blood 213 mg/dL (75-99)
[2019-01-31] MEDS: MORPHINE SULFATE 4 MG/ML SYRINGE IV PRN ×6 (00:01→23:24)
[2019-01-31] MEDS: methylPREDNISolone SOD SUCCI 125 MG/2 ML VIAL IV SCH ×5 (05:46→23:49)
[2019-01-31 06:58] LABS: Glucose,Whole Blood 124 mg/dL (75-99)
[2019-01-31] MEDS: IPRATROPIUM-ALBUTEROL 3 ML NEB INHALATION SCH ×5 (07:13→20:20)
[2019-01-31] MEDS: BUDESONIDE 1 MG/2 ML NEBU INHALATION SCH ×3 (07:13→20:20)
[2019-01-31] MEDS: FORMOTEROL FUMARATE 20 MCG/2 ML NEBU INHALATION SCH ×3 (07:13→20:20)
[2019-01-31] MEDS: INSULIN ASPART (NovoLOG) 100 UNIT/ML VIAL SQ SCH ×5 (07:38→21:53)
[2019-01-31] MEDS: guaiFENesin 600 MG TABLET.ER PO SCH ×2 (08:40→21:54)
[2019-01-31] MEDS: APIXABAN 5 MG TAB PO SCH ×2 (08:40→21:54)
[2019-01-31] MEDS: ASPIRIN 81 MG PO SCH (08:41)
[2019-01-31] MEDS: METOPROLOL TARTRATE 25 MG TAB PO SCH ×2 (08:41→22:25)
[2019-01-31] MEDS: PANTOPRAZOLE 40 MG TABLET PO SCH (08:41)
[2019-01-31] MEDS: DILTIAZEM ORAL 60 MG TAB PO SCH ×3 (09:37→22:20)
[2019-01-31 11:59] LABS: Glucose,Whole Blood 113 mg/dL (75-99)
--- NOTE | 2019-01-31 12:15 | P.PN ---
Subjective Progress Note Date: 01/31/19 Principal diagnosis: Acute exacerbation of mild intermittent asthma, acute left lower lobe pulmonary embolism this is a 58-year-old white male with recent surgery about a week ago at [facility] for patent foramen ovale. His postoperative course was uneventful, patient was discharged home, and for the last few days he has been complaining of intermittent episodes of cough, wheezing, shortness of breath, and chest tightness. Recent chest x-ray done by his primary care physician showed no evidence of active disease. Patient was sent for a CT of the chest/CT angiogram which came back positive for segmental and subsegmental pulmonary embolism in the left lower lobe. Patient was admitted started on heparin, and I was asked to see him on consultation. Patient is familiar to our service, we have seen him in the past for mostly moderate persistent asthma, however over the last few years, his asthma has been basically stable. Patient used to see Dr. Dinero on a regular basis, and the last time he was seen in our office was over 2 years ago. At any rate patient was examined, and his CT in [place] of the chest was reviewed, indeed he does have a small tiny embolic disease involving the segmental and subsegmental artery of the left lower lobe, but on examination he clearly has findings of asthma exacerbation. Hence I have recommended that we continue heparin, I have also recommended that we start the patient on Solu-Medrol, updrafts, and on Symbicort.considering his cough is productive with yellow phlegm, I have also recommended Zithromax orally. On 01/28/2019 patient seen in follow-up on selective care unit, he is awake and alert, in no acute distress, room air pulse ox the 100%. No complaints of chest pain, but still lots of wheezing and congestion, and physical exam reveal diffuse rhonchi and wheezes bilaterally, no fever or chills, patient has been started on oral Eliquis, he is on IV steroids nebulized bronchodilators and antibiotics or his asthma exacerbation, did receive a dose of IV Lasix per cardiology today On 01/30/2019 patient seen in follow-up on selective care unit, he is awake and alert, though complaining of being significantly bronchospastic and congested, and states he does not feel much improvement in the way of dyspnea and congestion. Not able to bring up much sputum. Lung sounds reveal diffuse rhonchi and wheezes, patient has been treated with IV steroids, Symbicort, nebulized bronchodilators. Sputum culture showed no growth. Todays labs have been noted. On 01/31/2019 patient seen in follow-up on medical surgical floor. He states there has been lack of improvement with his breathing, chest congestion, and wheezing. Has been maximized on medical treatment, patient is coughing, not able to bring up much sputum, he is afebrile, room air pulse ox is 95%, he is tolerating ambulation, he is on oral anticoagulation in the form of Eliquis for pulmonary embolism. Lung sounds are positive for diffuse wheezing and rhonchi, he is been nothing by mouth since midnight for possibility of bronchoscopy with BAL Objective - Vital Signs Vital signs: Vital Signs Temp 97.6 F 01/31/19 04:49 Pulse 80 01/31/19 07:29 Resp 20 01/31/19 04:49 BP 118/67 01/31/19 04:49 Pulse Ox 95 01/31/19 04:49 Intake & Output 01/30/19 01/31/19 01/31/19 18:59 06:59 18:59 Intake Total 1430 Balance 1430 Weight 85.5 kg Intake: IV 30 Invasive Line 3 30 Oral 1400 Other: Voiding Method Toilet Toilet # Voids 2 - Exam GENERAL EXAM: Alert, active, 50-year-old white male, on room air, with a pulse ox of 95% comfortable in no apparent distress. HEAD: Normocephalic/atraumatic. EYES: Normal reaction of pupils, equal size. Conjunctiva pink, sclera white. NOSE: Clear with pink turbinates. THROAT: No erythema or exudates. NECK: No masses, no JVD, no thyroid enlargement, no adenopathy. CHEST: No chest wall deformity. Symmetrical expansion. LUNGS: Equal air entry with diffuse rhonchi and wheezes, congestive cough CVS: Regular rate and rhythm, normal S1 and S2, no gallops, no murmurs, no rubs ABDOMEN: Soft, nontender. No hepatosplenomegaly, normal bowel sounds, no guarding or rigidity. EXTREMITIES: No clubbing, no edema, no cyanosis, 2+ pulses and upper and lower extremities. MUSCULOSKELETAL: Muscle strength and tone normal. SPINE: No scoliosis or deformity SKIN: No rashes CENTRAL NERVOUS SYSTEM: Alert and oriented -3. No focal deficits, tone is normal in all 4 extremities. PSYCHIATRIC: Alert and oriented -3. Appropriate affect. Intact judgment and insight. - Labs CBC & Chem 7: 01/29/19 06:14 01/29/19 06:14 Labs: Abnormal Lab Results - Last 24 Hours (Table) 01/30/19 01/31/19 01/31/19 Range/Units 21:03 06:57 11:58 POC Glucose (mg/dL) 213 H 124 H 113 H (75-99) mg/dL Microbiology - Last 24 Hours (Table) 01/30/19 08:12 Gram Stain - Final Sputum Sputum Culture - Final Assessment and Plan Plan: Assessment: 1 acute exacerbation of mild intermittent asthma. 2 acute. Tracheobronchitis 3 acute left lower lobe pulmonary embolism 4 history of degenerative joint disease, and history of arthroplasties and arthroscopies in the last few years. Plan: Patient has been nothing by mouth since midnight, continues to show lack of improvements despite being maximized on medical treatment, will go ahead and add patient to the bronch schedule today for a bronchoscopy with BAL, will continue with IV steroids, bronchodilators and antibiotics. I performed a history & physical examination of the patient and discussed their management with my nurse practitioner, Janet Red. I reviewed the nurse practitioner's note and agree with the documented findings and plan of care. Lung sounds are positive for diffuse wheezes throughout the lung martell. The findings and the impression was discussed with the patient. I attest to the documentation by the nurse practitioner. Time with Patient: Less than 30
--- NOTE | 2019-01-31 12:17 | P.PN ---
Subjective Patient Ambulating in [place]. On Examination Lungs found to be rhonchorous in all martell with x-ray wheeze. Patient stated he doesn't feel well yet. Pulmonology has plan to do bronchoscopy Objective - Vital Signs Vital signs: Vital Signs Temp 97.6 F 01/31/19 04:49 Pulse 80 01/31/19 07:29 Resp 20 01/31/19 04:49 BP 118/67 01/31/19 04:49 Pulse Ox 95 01/31/19 04:49 Intake & Output 01/30/19 01/31/19 01/31/19 18:59 06:59 18:59 Intake Total 1430 Balance 1430 Weight 85.5 kg Intake: IV 30 Invasive Line 3 30 Oral 1400 Other: Voiding Method Toilet Toilet # Voids 2 - Constitutional General appearance: Present: mild distress - EENT Eyes: Present: PERRLA Ears: bilateral: normal - Neck Neck: Present: normal ROM - Respiratory Respiratory: bilateral: rhonchi, wheezing - Cardiovascular Rhythm: regular - Gastrointestinal General gastrointestinal: Present: soft - Integumentary Integumentary: Present: normal - Neurologic Neurologic: Present: CNII-XII intact - Musculoskeletal Musculoskeletal: Present: gait normal - Psychiatric Psychiatric: Present: A&O x's 3, appropriate affect, intact judgment & insight - Labs CBC & Chem 7: 01/29/19 06:14 01/29/19 06:14 Labs: Abnormal Lab Results - Last 24 Hours (Table) 01/30/19 01/31/19 01/31/19 Range/Units 21:03 06:57 11:58 POC Glucose (mg/dL) 213 H 124 H 113 H (75-99) mg/dL Microbiology - Last 24 Hours (Table) 01/30/19 08:12 Gram Stain - Final Sputum Sputum Culture - Final - Imaging and Cardiology CT scan - chest: report reviewed Assessment and Plan Plan: Assessment Acute left lower lobe pulmonary embolism Acute asthma exacerbation mild intermittent acute tracheobronchitis Recent repair of patent foramen ovale Multiple CVA TIA Degenerative joint disease Intermittent paroxysmal atrial fibrillation in sinus rhythm Plan Continue consultation with pulmonology We'll be scheduled for bronchoscopy
[2019-01-31] MEDS ORDERED: PROPOFOL 10 MG/ML 20 ML VIAL IV ONE (12:31)
[2019-01-31] MEDS ORDERED: SODIUM CHLORIDE 0.9% 1,000 ML IV ONE (12:34)
[2019-01-31] MEDS: LEVOFLOXACIN 500 MG TAB PO SCH (13:02)
--- NOTE | 2019-01-31 13:54 | P.PN ---
Subjective This is a pleasant 58-year-old male past medical history significant for hypertrophic cardiomyopathy, PFO status post closure earlier this month at [facility] and paroxysmal atrial fibrillation. He follows in the office with Dr. Rodriguez. He is seen and examined sitting up in no acute distress. He continues to feel short of breath, coughing and pleuritic left- sided chest discomfort. He is scheduled for bronchoscopy with BAL today. Blood pressure 125/75 heart rate 58 afebrile and maintaining oxygen saturation on room air. GENERAL: Well-appearing, well-nourished and in no acute distress. NECK: Supple without JVD or thyromegaly. LUNGS: Coarse scattered rhonchi bilaterally, expiratory wheeze, no rales. Respiration equal and unlabored. HEART: Regular rate and rhythm with systolic ejection murmur at the left sternal border, no rubs or gallops. S1 and S2 heard. EXTREMITIES: Normal range of motion, no edema. No clubbing or cyanosis. Peripheral pulses intact. ASSESSMENT Tracheobronchitis Bronchial asthma Paroxysmal atrial fibrillation on longterm anticoagulation currently maintaining sinus mechanism Left lower lobe pulmonary embolism History of hypertrophic cardiomyopathy Status post PFO closure PLAN Continue current medical regimen. Nurse Practitioner note has been reviewed, I agree with a documented findings and plan of care. Patient was seen and examined. Objective - Vital Signs Vital signs: Vital Signs Temp 97.6 F 01/31/19 04:49 Pulse 58 L 01/31/19 13:08 Resp 16 01/31/19 13:08 BP 125/75 01/31/19 13:08 Pulse Ox 93 L 01/31/19 13:08 Intake & Output 01/30/19 01/31/19 01/31/19 18:59 06:59 18:59 Intake Total 1430 200 Balance 1430 200 Weight 85.5 kg Intake: IV 30 200 Invasive Line 3 30 Oral 1400 Other: Voiding Method Toilet Toilet # Voids 2 3 - Labs CBC & Chem 7: 01/29/19 06:14 01/29/19 06:14 Labs: Abnormal Lab Results - Last 24 Hours (Table) 01/30/19 01/31/19 01/31/19 Range/Units 21:03 06:57 11:58 POC Glucose (mg/dL) 213 H 124 H 113 H (75-99) mg/dL Microbiology - Last 24 Hours (Table) 08/25/19 08:12 Gram Stain - Final Sputum Sputum Culture - Final
[2019-01-31 16:25] LABS: Appearance,BF Cloudy; Color,BF Colorless; Nucleated Cells, Body Fluid 3890 /uL; RBC, Body Fluid 480 /uL
[2019-01-31 17:12] LABS: Mononuclear WBC,Body Fluid 5 %; Polynuclear WBC,Body Fluid 93 %
[2019-01-31 17:29] LABS: Glucose,Whole Blood 159 mg/dL (75-99)
--- NOTE | 2019-01-31 17:30 | P.PN ---
Subjective Progress Note Date: 01/30/19 Principal diagnosis: Acute pulmonary embolism Acute asthma exacerbation Patient is a 58-year-old male with a known history of asthma, history of multiple TIAs/CVA due to PFO who recently had cardiac Patient with repair of PFO at [facility] about 2 weeks ago was sent to by his primary care physician for CT angiogram of the chest. Patient started having cough with some green sputum production since Thursday and is being followed by primary care physician. Patient was started on Levaquin which he did take 1 dose. Today patient has been having worsening shortness of breath and chest pain with deep breathing and was sent to ER for CT angiogram to rule out pulmonary embolism by his primary care physician. Patient otherwise denied any fever or chills. No nausea vomiting or abdominal pain. No diarrhea. CT angiogram of the chest showed segmental and subsegmental pulmonary embolism in the left lower lobe. Patient was started on heparin drip. 01/28/2019 Patient is still complaining of shortness of breath. Otherwise being continued on anticoagulation with Eliquis. Currently and antibodies the form of azithromycin. Continued on breathing treatments and steroids. Pulmonary and Cardiology on board. No fever no chills. No other acute overnight issues. 01/29/2019 Patient says that he still having shortness of breath but with slight improvement. Still having expiratory wheezing and scattered rhonchi. Currently on oxygen whereas of cannula high flow. Continued on IV steroids, breathing treatments and antibiotics and also on anticoagulation with Eliquis. No other acute overnight issues. 01/30/2019 Patient says that his breathing status is still the same. Still having diffuse rhonchi and wheezing. On oxygen therapy. No fever no chills. Currently being continued on IV steroids breathing treatments and antibiotics as well as anticoagulation for pulmonary embolism. Pulmonary is planning for bronchoscopy tomorrow. No complaints of chest pain. No leg swelling. No nausea vomiting or diarrhea. Current medications reviewed. Objective - Vital Signs Vital signs: Vital Signs Temp 98.2 F 01/30/19 15:31 Pulse 73 01/30/19 16:14 Resp 18 01/30/19 15:31 BP 125/69 01/30/19 15:31 Pulse Ox 96 01/30/19 15:31 Intake & Output 01/29/19 01/30/19 01/30/19 18:59 06:59 18:59 Intake Total 1047 1070 Balance 1047 1070 Weight 84.3 kg Intake: IV 40 30 Invasive Line 2 10 Invasive Line 3 30 30 Oral 1007 1040 Other: Voiding Method Toilet Toilet # Voids 1 1 - Exam PHYSICAL EXAMINATION: Patient is lying in the bed comfortably, no acute distress, awake alert and oriented.. HEENT: Normocephalic. Neck is supple. Pupils reactive. Nostrils clear. Oral cavity is moist. Ears reveal no drainage. Neck reveals no JVD, carotid bruits, or thyromegaly. CHEST EXAMINATION: Trachea is central. Symmetrical expansion. Expiratory wheezing and scattered rhonchi... CARDIAC: Normal S1, S2 with no gallops. No murmurs ABDOMEN: Soft. Bowel sounds normal. No organomegaly. No abdominal bruits. Extremities: reveal no edema. No clubbing or cyanosis Neurologically awake, alert, oriented x3 with well-coordinated movements. No focal deficits noted Skin: No rash or skin lesions. Psychiatric: Coperative. Nonsuicidal Musculoskeletal: No joint swelling or deformity. Normal range of motion. - Labs CBC & Chem 7: 01/29/19 06:14 01/29/19 06:14 Labs: Abnormal Lab Results - Last 24 Hours (Table) 01/29/19 01/29/19 01/30/19 Range/Units 16:45 21:30 06:18 POC Glucose (mg/dL) 137 H 119 H 124 H (75-99) mg/dL 01/30/19 Range/Units 11:39 POC Glucose (mg/dL) 173 H (75-99) mg/dL Microbiology - Last 24 Hours (Table) 01/30/19 08:12 Gram Stain - Final Sputum Sputum Culture - Final Assessment and Plan Assessment: Acute left lower lobe pulmonary embolism segmental and subsegmental Acute asthma exacerbation mild intermittent. Acute Tracheobronchitis Shortness of breath secondary to [facility] CVA/TIAs Degenerative joint disease Plan: Patient was continued on heparin drip. changed to oral anticoagulants. Patient be continued on breathing treatments and IV steroids. Continue with antibiotics in the form of azithromycin changed to Levaquin. Further recommendations based on the clinical course. Pulmonary and cardiology on board. Discussed the patient at bedside in detail. Time with Patient: Greater than 30
[2019-01-31 20:45] LABS: Glucose,Whole Blood 132 mg/dL (75-99)
[2019-01-31] MEDS: MONTELUKAST 10 MG TAB PO SCH (21:53)
--- NOTE | 2019-01-31 23:02 | PCN ---
PROCEDURE NOTE PROCEDURE PERFORMED: Bronchoscopy, airway examination, therapeutic lavage, BAL. BEHAVIORAL SERVICES TECH: Dr. Steward. PREOP DIAGNOSES: Asthma exacerbation, retained secretions. POSTOP DIAGNOSES: Asthma exacerbation, retained secretions. DESCRIPTION OF PROCEDURE: There was informed consent was universal timeout. Helio Cordon CRNA provided unconscious sedation and general anesthesia. After the patient was adequately sedated and being fully monitored, the bronchoscope was inserted through the right nostril. It passed through the right nasopharynx into the oropharynx. The hypopharynx was identified and topicalized. The hypopharyngeal structures including anterior commissure, true cords, false cords, arytenoids, piriform sinuses, right and left vallecula and epiglottis appeared normal. After topicalization, bronchoscope was pushed through the glottic opening into the trachea. There were thick secretions noted throughout the trachea. They were suctioned. Next, the tracheal nayeli was observed. It was sharp. The right and left mainstem were topicalized. The right upper lobe and its 3 segments, right middle lobe and its 2 segments, right lower lobe and its 5 segments, the left upper lobe proper and its 2 segments, the lingula and its 2 segments and the left lower lobe and its 4 segments all had similar findings of diffuse severe bronchitic changes. There was diffuse erythema and hyperemia of the airways. The mucosa was friable. It bled easily. There were thick yellow secretions noted throughout. They were noted primarily in the lower lobes of both lungs. They were suctioned with saline lavage. Next, the bronchoscope was wedged into the right middle lobe. We did a BAL. The patient tolerated the procedure well. There was no dominant mass or tumor. The patient tolerated the procedure well and will be recovered. The bronchoscope was withdrawn. There was no immediate complication. The fluid will be sent for analysis. MMODL / IJN: [id number] /
[2019-02-01] MEDS: MORPHINE SULFATE 4 MG/ML SYRINGE IV PRN ×6 (03:26→21:49)
[2019-02-01] MEDS: methylPREDNISolone SOD SUCCI 125 MG/2 ML VIAL IV SCH ×3 (06:07→17:31)
[2019-02-01 07:20] LABS: Glucose,Whole Blood 136 mg/dL (75-99)
[2019-02-01] MEDS: ASPIRIN 81 MG PO SCH (08:10)
[2019-02-01] MEDS: APIXABAN 5 MG TAB PO SCH ×2 (08:10→21:49)
[2019-02-01] MEDS: DILTIAZEM ORAL 60 MG TAB PO SCH ×3 (08:11→22:43)
[2019-02-01] MEDS: FORMOTEROL FUMARATE 20 MCG/2 ML NEBU INHALATION SCH ×2 (08:12→20:14)
[2019-02-01] MEDS: INSULIN ASPART (NovoLOG) 100 UNIT/ML VIAL SQ SCH ×4 (08:12→21:54)
[2019-02-01] MEDS: guaiFENesin 600 MG TABLET.ER PO SCH ×2 (08:12→21:49)
[2019-02-01] MEDS: BUDESONIDE 1 MG/2 ML NEBU INHALATION SCH ×2 (08:12→20:14)
[2019-02-01] MEDS: IPRATROPIUM-ALBUTEROL 3 ML NEB INHALATION SCH ×4 (08:12→20:14)
[2019-02-01] MEDS: METOPROLOL TARTRATE 25 MG TAB PO SCH ×2 (08:12→21:55)
[2019-02-01] MEDS: PANTOPRAZOLE 40 MG TABLET PO SCH (08:12)
--- NOTE | 2019-02-01 10:43 | P.PN ---
Subjective Patient resting in bed continues with scattered rhonchi and rales to chest. Patient is post bronchoscopy awaiting pathology Objective - Vital Signs Vital signs: Vital Signs Temp 97.7 F 02/01/19 07:20 Pulse 72 02/01/19 08:33 Resp 16 02/01/19 08:00 BP 146/85 02/01/19 07:20 Pulse Ox 94 L 02/01/19 07:20 Intake & Output 01/31/19 02/01/19 02/01/19 18:59 06:59 18:59 Intake Total 200 840 Balance 200 840 Weight 86 kg Intake: IV 200 Oral 840 Other: Voiding Method Toilet Toilet # Voids 3 1 - Constitutional General appearance: Present: mild distress - EENT Eyes: Present: PERRLA Ears: bilateral: normal - Neck Neck: Present: normal ROM - Respiratory Respiratory: bilateral: rhonchi - Cardiovascular Rhythm: regular - Gastrointestinal General gastrointestinal: Present: soft - Integumentary Integumentary: Present: normal - Neurologic Neurologic: Present: CNII-XII intact - Musculoskeletal Musculoskeletal: Present: gait normal - Labs CBC & Chem 7: 01/29/19 06:14 01/29/19 06:14 Labs: Abnormal Lab Results - Last 24 Hours (Table) 01/31/19 01/31/19 01/31/19 Range/Units 11:58 17:18 20:32 POC Glucose (mg/dL) 113 H 159 H 132 H (75-99) mg/dL 02/01/19 Range/Units 07:08 POC Glucose (mg/dL) 136 H (75-99) mg/dL Microbiology - Last 24 Hours (Table) 01/31/19 15:07 Acid Fast Bacilli Smear - Final Bronchial Washings - Right Acid Fast Bacilli Culture - Preliminary 01/31/19 15:07 Gram Stain - Preliminary Bronchial Washings - Right Bronchial Washings Culture - Preliminary 01/31/19 15:07 Fungal Culture - Preliminary Bronchial Washings - Right 01/30/19 08:12 Gram Stain - Final Sputum Sputum Culture - Final Assessment and Plan Plan: Assessment Acute pulmonary embolism left lower lobe Acute asthma exacerbation mild intermittent with acute tracheobronchitis Post bronchoscopy showing bronchials inflamed with yellow secretions Recent patent foramen ovale repair History of CVA/TIAs Degenerative joint disease Atrial fibrillation paroxysmal intermittent Hypertrophic cardiomyopathy Plan Continue consultation with pulmonology and cardiology Venous Doppler study ordered
--- NOTE | 2019-02-01 11:18 | US ---
EXAMINATION TYPE: US venous doppler duplex LE DATE OF EXAM: 02/01/2019 11:04 AM COMPARISON: NONE CLINICAL HISTORY: Known pulmonary embolism on CT 5 days earlier. SIDE PERFORMED: Bilateral TECHNIQUE: The lower extremity deep venous system is examined utilizing real time linear array sonog jinny with graded compression, doppler sonography and color-flow sonography. VESSELS IMAGED: External Iliac Vein (EIV) Common Femoral Vein Deep Femoral Vein Greater Saphenous Vein * Femoral Vein Popliteal Vein Small Saphenous Vein * Proximal Calf Veins (* superficial vessels) Right Leg: Negative for DVT Left Leg: Negative for DVT Grayscale, color doppler, spectral doppler imaging performed of the deep veins of the bilateral lower extremities. There is normal flow, compressibility, vascular waveforms. IMPRESSION: No ultrasound evidence for acute DVT in either lower extremity.
[2019-02-01 11:50] LABS: Glucose,Whole Blood 122 mg/dL (75-99)
--- NOTE | 2019-02-01 11:58 | P.PN ---
Subjective Progress Note Date: 02/01/19 Principal diagnosis: Acute exacerbation of mild intermittent asthma, acute left lower lobe pulmonary embolism this is a 58-year-old white male with recent surgery about a week ago at [facility] for patent foramen ovale. His postoperative course was uneventful, patient was discharged home, and for the last few days he has been complaining of intermittent episodes of cough, wheezing, shortness of breath, and chest tightness. Recent chest x-ray done by his primary care physician showed no evidence of active disease. Patient was sent for a CT of the chest/CT angiogram which came back positive for segmental and subsegmental pulmonary embolism in the left lower lobe. Patient was admitted started on heparin, and I was asked to see him on consultation. Patient is familiar to our service, we have seen him in the past for mostly moderate persistent asthma, however over the last few years, his asthma has been basically stable. Patient used to see Dr. Dinero on a regular basis, and the last time he was seen in our office was over 2 years ago. At any rate patient was examined, and his CT in [place] of the chest was reviewed, indeed he does have a small tiny embolic disease involving the segmental and subsegmental artery of the left lower lobe, but on examination he clearly has findings of asthma exacerbation. Hence I have recommended that we continue heparin, I have also recommended that we start the patient on Solu-Medrol, updrafts, and on Symbicort.considering his cough is productive with yellow phlegm, I have also recommended Zithromax orally. On 01/28/2019 patient seen in follow-up on selective care unit, he is awake and alert, in no acute distress, room air pulse ox the 100%. No complaints of chest pain, but still lots of wheezing and congestion, and physical exam reveal diffuse rhonchi and wheezes bilaterally, no fever or chills, patient has been started on oral Eliquis, he is on IV steroids nebulized bronchodilators and antibiotics or his asthma exacerbation, did receive a dose of IV Lasix per cardiology today On 01/30/2019 patient seen in follow-up on selective care unit, he is awake and alert, though complaining of being significantly bronchospastic and congested, and states he does not feel much improvement in the way of dyspnea and congestion. Not able to bring up much sputum. Lung sounds reveal diffuse rhonchi and wheezes, patient has been treated with IV steroids, Symbicort, nebulized bronchodilators. Sputum culture showed no growth. Todays labs have been noted. On 01/31/2019 patient seen in follow-up on medical surgical floor. He states there has been lack of improvement with his breathing, chest congestion, and wheezing. Has been maximized on medical treatment, patient is coughing, not able to bring up much sputum, he is afebrile, room air pulse ox is 95%, he is tolerating ambulation, he is on oral anticoagulation in the form of Eliquis for pulmonary embolism. Lung sounds are positive for diffuse wheezing and rhonchi, he is been nothing by mouth since midnight for possibility of bronchoscopy with BAL On 02/01/2019 patient seen in follow-up on medical surgical floor. He states he felt better in the afternoon after the bronchoscopy with bronchial wash yesterday, however today he states he feels like he is getting more congested again, and he is not bringing up much sputum. Lung sounds reveal diffuse rhonchi and wheezes. Bronchial wash cultures are still pending, preliminary Gram stain shows moderate gram-positive bacilli, few gram-positive cocci and a few yeast, final culture is pending. Patient is on oral antibiotics in the form of Levaquin, he is on IV Solu-Medrol, Pulmicort and Perforomist, and DuoNeb. Has been no febrile episodes. Objective - Vital Signs Vital signs: Vital Signs Temp 97.7 F 02/01/19 07:20 Pulse 72 02/01/19 08:33 Resp 16 02/01/19 08:00 BP 146/85 02/01/19 07:20 Pulse Ox 94 L 02/01/19 07:20 Intake & Output 01/31/19 02/01/19 02/01/19 18:59 06:59 18:59 Intake Total 200 840 Balance 200 840 Weight 86 kg Intake: IV 200 Oral 840 Other: Voiding Method Toilet Toilet # Voids 3 1 - Exam GENERAL EXAM: Alert, active, 50-year-old white male, on room air, with a pulse ox of 95% comfortable in no apparent distress. HEAD: Normocephalic/atraumatic. EYES: Normal reaction of pupils, equal size. Conjunctiva pink, sclera white. NOSE: Clear with pink turbinates. THROAT: No erythema or exudates. NECK: No masses, no JVD, no thyroid enlargement, no adenopathy. CHEST: No chest wall deformity. Symmetrical expansion. LUNGS: Equal air entry with diffuse rhonchi and wheezes, congestive cough CVS: Regular rate and rhythm, normal S1 and S2, no gallops, no murmurs, no rubs ABDOMEN: Soft, nontender. No hepatosplenomegaly, normal bowel sounds, no guarding or rigidity. EXTREMITIES: No clubbing, no edema, no cyanosis, 2+ pulses and upper and lower extremities. MUSCULOSKELETAL: Muscle strength and tone normal. SPINE: No scoliosis or deformity SKIN: No rashes CENTRAL NERVOUS SYSTEM: Alert and oriented -3. No focal deficits, tone is normal in all 4 extremities. PSYCHIATRIC: Alert and oriented -3. Appropriate affect. Intact judgment and insight. - Labs CBC & Chem 7: 01/29/19 06:14 01/29/19 06:14 Labs: Abnormal Lab Results - Last 24 Hours (Table) 01/31/19 01/31/19 01/31/19 Range/Units 11:58 17:18 20:32 POC Glucose (mg/dL) 113 H 159 H 132 H (75-99) mg/dL 02/01/19 02/01/19 Range/Units 07:08 11:47 POC Glucose (mg/dL) 136 H 122 H (75-99) mg/dL Microbiology - Last 24 Hours (Table) 01/31/19 15:07 Acid Fast Bacilli Smear - Final Bronchial Washings - Right Acid Fast Bacilli Culture - Preliminary 01/31/19 15:07 Gram Stain - Preliminary Bronchial Washings - Right Bronchial Washings Culture - Preliminary 01/31/19 15:07 Fungal Culture - Preliminary Bronchial Washings - Right 01/30/19 08:12 Gram Stain - Final Sputum Sputum Culture - Final Assessment and Plan Plan: Assessment: 1 acute exacerbation of mild intermittent asthma, possibly related to possibility of aspiration during his surgical procedure for patent beltre ovale repair 2 acute. Tracheobronchitis 3 acute left lower lobe pulmonary embolism 4 history of degenerative joint disease, and history of arthroplasties and arthroscopies in the last few years. Plan: Continue current medical treatment, current antibiotics, patient is again quite wheezy and congested, felt somewhat better after the bronchial wash yesterday, today is still quite congested and wheezy. Not ready for discharge, we'll continue same dose of IV steroids, antibiotics, and nebulized bronchodilators. Continue oral anticoagulation for pulmonary embolism I performed a history & physical examination of the patient and discussed their management with my nurse practitioner, Janet Red. I reviewed the nurse practitioner's note and agree with the documented findings and plan of care. Lung sounds are positive for diffuse wheezes throughout the lung martell. The findings and the impression was discussed with the patient. I attest to the documentation by the nurse practitioner. Time with Patient: Less than 30
[2019-02-01] MEDS: LEVOFLOXACIN 500 MG TAB PO SCH (13:03)
[2019-02-01 16:43] LABS: Glucose,Whole Blood 112 mg/dL (75-99)
[2019-02-01 20:28] LABS: Glucose,Whole Blood 121 mg/dL (75-99)
[2019-02-01] MEDS: MONTELUKAST 10 MG TAB PO SCH (21:49)
[2019-02-02] MEDS: methylPREDNISolone SOD SUCCI 125 MG/2 ML VIAL IV SCH ×4 (00:16→21:16)
[2019-02-02] MEDS: MORPHINE SULFATE 4 MG/ML SYRINGE IV PRN ×4 (02:02→21:17)
[2019-02-02 07:11] LABS: Glucose,Whole Blood 109 mg/dL (75-99)
[2019-02-02] MEDS: BUDESONIDE 1 MG/2 ML NEBU INHALATION SCH ×2 (09:22→21:34)
[2019-02-02] MEDS: FORMOTEROL FUMARATE 20 MCG/2 ML NEBU INHALATION SCH ×2 (09:22→21:34)
[2019-02-02] MEDS: IPRATROPIUM-ALBUTEROL 3 ML NEB INHALATION SCH ×4 (09:22→21:34)
[2019-02-02] MEDS: INSULIN ASPART (NovoLOG) 100 UNIT/ML VIAL SQ SCH ×4 (09:35→21:27)
[2019-02-02] MEDS: guaiFENesin 600 MG TABLET.ER PO SCH ×2 (09:51→21:17)
[2019-02-02] MEDS: PANTOPRAZOLE 40 MG TABLET PO SCH (09:52)
[2019-02-02] MEDS: APIXABAN 5 MG TAB PO SCH ×2 (09:52→21:17)
[2019-02-02] MEDS: METOPROLOL TARTRATE 25 MG TAB PO SCH ×2 (09:52→21:17)
[2019-02-02] MEDS: ASPIRIN 81 MG PO SCH (09:52)
[2019-02-02] MEDS: DILTIAZEM ORAL 60 MG TAB PO SCH ×3 (09:53→22:42)
--- NOTE | 2019-02-02 10:22 | PN ---
PROGRESS NOTE DATE OF SERVICE: February 01, 2019 This patient is status post PFO closure and paroxysmal atrial fibrillation. Patient is admitted with respiratory distress and some chest pain. The patient is also being treated for possible pulmonary embolism. However, patient continues to have some non- productive cough and shortness of breath. The patient had a bronchial lavage yesterday. He does not notice any significant change. PHYSICAL EXAMINATION: Physical examination reveals vital signs are stable. First and second heart sounds are normal. Lungs examination revealed bilateral diffuse disease and rhonchi. IMPRESSION: Possible acute tracheobronchitis. Patient persists to be symptomatic in spite of the steroid and antibiotics for one week. We will continue the current medications at present. Further management as per pulmonary service. MMODL / IJN: [id number] /
[2019-02-02] MEDS: LEVOFLOXACIN 500 MG TAB PO SCH (11:20)
--- NOTE | 2019-02-02 11:39 | P.PN ---
Subjective Patient sitting in chair at bedside states he had some improvement from yesterday. Continues to have scattered rhonchi with wheeze. Some intermittent of left lower chest pain from PE. Continues with consultation to pulmonology Objective - Vital Signs Vital signs: Vital Signs Temp 97.9 F 02/02/19 10:03 Pulse 66 02/02/19 10:03 Resp 16 02/02/19 10:03 BP 135/84 02/02/19 10:03 Pulse Ox 96 02/02/19 10:03 Intake & Output 02/01/19 02/02/19 02/02/19 18:59 06:59 18:59 Intake Total 490 Balance 490 Intake: Oral 490 Other: Voiding Method Toilet Toilet Toilet # Voids 2 1 - Constitutional General appearance: Present: mild distress - EENT Eyes: Present: PERRLA Ears: bilateral: normal - Neck Neck: Present: normal ROM - Respiratory Respiratory: bilateral: rhonchi, wheezing - Cardiovascular Rhythm: regular - Gastrointestinal General gastrointestinal: Present: soft - Integumentary Integumentary: Present: normal - Neurologic Neurologic: Present: CNII-XII intact - Musculoskeletal Musculoskeletal: Present: gait normal - Psychiatric Psychiatric: Present: A&O x's 3, appropriate affect, intact judgment & insight - Labs CBC & Chem 7: 01/29/19 06:14 01/29/19 06:14 Labs: Abnormal Lab Results - Last 24 Hours (Table) 01/31/19 02/01/19 02/01/19 Range/Units 15:07 11:47 16:41 POC Glucose (mg/dL) 122 H 112 H (75-99) mg/dL Viral Test See Below H 02/01/19 02/02/19 Range/Units 20:16 07:00 POC Glucose (mg/dL) 121 H 109 H (75-99) mg/dL Viral Test Microbiology - Last 24 Hours (Table) 01/31/19 15:07 Gram Stain - Final Bronchial Washings - Right Bronchial Washings Culture - Final Assessment and Plan Plan: Assessment Acute left lower lobe pulmonary embolus Acute asthma exacerbation mild intermittent Tracheobronchitis Recent repair of patent foramen ovale History of CVA/TIA Paroxysmal atrial fibrillation Hypertrophic cardiomyopathy Plan Continue consultation with pulmonology
[2019-02-02 11:58] LABS: Glucose,Whole Blood 116 mg/dL (75-99)
--- NOTE | 2019-02-02 15:52 | P.PN ---
Subjective Progress Note Date: 02/02/19 Principal diagnosis: Acute exacerbation of mild intermittent asthma, acute left lower lobe pulmonary embolism this is a 58-year-old white male with recent surgery about a week ago at [facility] for patent foramen ovale. His postoperative course was uneventful, patient was discharged home, and for the last few days he has been complaining of intermittent episodes of cough, wheezing, shortness of breath, and chest tightness. Recent chest x-ray done by his primary care physician showed no evidence of active disease. Patient was sent for a CT of the chest/CT angiogram which came back positive for segmental and subsegmental pulmonary embolism in the left lower lobe. Patient was admitted started on heparin, and I was asked to see him on consultation. Patient is familiar to our service, we have seen him in the past for mostly moderate persistent asthma, however over the last few years, his asthma has been basically stable. Patient used to see Dr. Dinero on a regular basis, and the last time he was seen in our office was over 2 years ago. At any rate patient was examined, and his CT in [place] of the chest was reviewed, indeed he does have a small tiny embolic disease involving the segmental and subsegmental artery of the left lower lobe, but on examination he clearly has findings of asthma exacerbation. Hence I have recommended that we continue heparin, I have also recommended that we start the patient on Solu-Medrol, updrafts, and on Symbicort.considering his cough is productive with yellow phlegm, I have also recommended Zithromax orally. On 01/28/2019 patient seen in follow-up on selective care unit, he is awake and alert, in no acute distress, room air pulse ox the 100%. No complaints of chest pain, but still lots of wheezing and congestion, and physical exam reveal diffuse rhonchi and wheezes bilaterally, no fever or chills, patient has been started on oral Eliquis, he is on IV steroids nebulized bronchodilators and antibiotics or his asthma exacerbation, did receive a dose of IV Lasix per cardiology today On 01/30/2019 patient seen in follow-up on selective care unit, he is awake and alert, though complaining of being significantly bronchospastic and congested, and states he does not feel much improvement in the way of dyspnea and congestion. Not able to bring up much sputum. Lung sounds reveal diffuse rhonchi and wheezes, patient has been treated with IV steroids, Symbicort, nebulized bronchodilators. Sputum culture showed no growth. Todays labs have been noted. On 01/31/2019 patient seen in follow-up on medical surgical floor. He states there has been lack of improvement with his breathing, chest congestion, and wheezing. Has been maximized on medical treatment, patient is coughing, not able to bring up much sputum, he is afebrile, room air pulse ox is 95%, he is tolerating ambulation, he is on oral anticoagulation in the form of Eliquis for pulmonary embolism. Lung sounds are positive for diffuse wheezing and rhonchi, he is been nothing by mouth since midnight for possibility of bronchoscopy with BAL On 02/01/2019 patient seen in follow-up on medical surgical floor. He states he felt better in the afternoon after the bronchoscopy with bronchial wash yesterday, however today he states he feels like he is getting more congested again, and he is not bringing up much sputum. Lung sounds reveal diffuse rhonchi and wheezes. Bronchial wash cultures are still pending, preliminary Gram stain shows moderate gram-positive bacilli, few gram-positive cocci and a few yeast, final culture is pending. Patient is on oral antibiotics in the form of Levaquin, he is on IV Solu-Medrol, Pulmicort and Perforomist, and DuoNeb. Has been no febrile episodes. On 01/25/2019 patient seen in follow-up on medical surgical floor. He is up ambulating, still congested and not bringing up much sputum, lung sounds sound slightly better today, hemodynamically patient is stable, no fever or chills, b ronchial wash viral culture showed evidence of rhinovirus, no other positive cultures. Patient continues on oral Levaquin, patient is on IV Solu-Medrol, Pulmicort, Perforomist, and nebulized bronchodilators, he is requesting to stop his Mucinex, he doesn't think that is helping. He is on oral intake with patient for his pulmonary embolism. Bronchial wash cytology was negative for cells diagnostic of malignant neoplasm Objective - Vital Signs Vital signs: Vital Signs Temp 98.2 F 02/02/19 15:00 Pulse 56 L 02/02/19 15:00 Resp 15 02/02/19 15:00 BP 139/82 02/02/19 15:00 Pulse Ox 95 02/02/19 15:00 Intake & Output 02/01/19 02/02/19 02/02/19 18:59 06:59 18:59 Intake Total 490 120 Balance 490 120 Intake: Oral 490 120 Other: Voiding Method Toilet Toilet Toilet # Voids 2 1 2 - Exam GENERAL EXAM: Alert, active, 50-year-old white male, on room air, with a pulse ox of 95% comfortable in no apparent distress. HEAD: Normocephalic/atraumatic. EYES: Normal reaction of pupils, equal size. Conjunctiva pink, sclera white. NOSE: Clear with pink turbinates. THROAT: No erythema or exudates. NECK: No masses, no JVD, no thyroid enlargement, no adenopathy. CHEST: No chest wall deformity. Symmetrical expansion. LUNGS: Equal air entry with diffuse rhonchi and wheezes, congestive cough CVS: Regular rate and rhythm, normal S1 and S2, no gallops, no murmurs, no rubs ABDOMEN: Soft, nontender. No hepatosplenomegaly, normal bowel sounds, no g uarding or rigidity. EXTREMITIES: No clubbing, no edema, no cyanosis, 2+ pulses and upper and lower extremities. MUSCULOSKELETAL: Muscle strength and tone normal. SPINE: No scoliosis or deformity SKIN: No rashes CENTRAL NERVOUS SYSTEM: Alert and oriented -3. No focal deficits, tone is normal in all 4 extremities. PSYCHIATRIC: Alert and oriented -3. Appropriate affect. Intact judgment and insight. - Labs CBC & Chem 7: 01/29/19 06:14 01/29/19 06:14 Labs: Abnormal Lab Results - Last 24 Hours (Table) 01/31/19 02/01/19 02/01/19 Range/Units 15:07 16:41 20:16 POC Glucose (mg/dL) 112 H 121 H (75-99) mg/dL Viral Test See Below H 02/02/19 02/02/19 Range/Units 07:00 11:47 POC Glucose (mg/dL) 109 H 116 H (75-99) mg/dL Viral Test Microbiology - Last 24 Hours (Table) 01/31/19 15:07 Gram Stain - Final Bronchial Washings - Right Bronchial Washings Culture - Final Assessment and Plan Plan: Assessment: 1 acute exacerbation of mild intermittent asthma, possibly related to possibility of aspiration during his surgical procedure for patent beltre ovale repair 2 acute. Tracheobronchitis 3 acute left lower lobe pulmonary embolism 4 history of degenerative joint disease, and history of arthroplasties and arthroscopies in the last few years. Plan: Continue with the same medical treatment, patient is improving, but still bronchospastic and congested, continue same dose of IV steroids, nebulized bronchodilators, and empiric antibiotics, stable, clinically patient is stable, patient is probably stable for discharge in next 24 hours, we'll give the patient another 24 hours inpatient treatment I performed a history & physical examination of the patient and discussed their management with my nurse practitioner, Janet Red. I reviewed the nurse practitioner's note and agree with the documented findings and plan of care. Lung sounds are positive for diffuse wheezes throughout the lung martell. The findings and the impression was discussed with the patient. I attest to the documentation by the nurse practitioner. Time with Patient: Less than 30
[2019-02-02 17:34] LABS: Glucose,Whole Blood 125 mg/dL (75-99)
[2019-02-02] MEDS: MONTELUKAST 10 MG TAB PO SCH (21:17)
[2019-02-02 21:19] LABS: Glucose,Whole Blood 134 mg/dL (75-99)
[2019-02-03] MEDS: MORPHINE SULFATE 4 MG/ML SYRINGE IV PRN ×5 (01:17→21:07)
[2019-02-03] MEDS: methylPREDNISolone SOD SUCCI 125 MG/2 ML VIAL IV SCH ×4 (01:18→16:58)
[2019-02-03 07:35] LABS: Glucose,Whole Blood 118 mg/dL (75-99)
[2019-02-03] MEDS: INSULIN ASPART (NovoLOG) 100 UNIT/ML VIAL SQ SCH ×4 (07:50→21:09)
[2019-02-03] MEDS: DILTIAZEM ORAL 60 MG TAB PO SCH ×3 (08:12→22:37)
[2019-02-03] MEDS: METOPROLOL TARTRATE 25 MG TAB PO SCH ×2 (08:12→21:09)
[2019-02-03] MEDS: guaiFENesin 600 MG TABLET.ER PO SCH ×2 (08:12→21:09)
[2019-02-03] MEDS: ASPIRIN 81 MG PO SCH (08:12)
[2019-02-03] MEDS: PANTOPRAZOLE 40 MG TABLET PO SCH (08:12)
[2019-02-03] MEDS: APIXABAN 5 MG TAB PO SCH ×2 (08:13→21:09)
[2019-02-03] MEDS: IPRATROPIUM-ALBUTEROL 3 ML NEB INHALATION SCH ×4 (09:04→21:00)
[2019-02-03] MEDS: BUDESONIDE 1 MG/2 ML NEBU INHALATION SCH ×2 (09:04→21:00)
[2019-02-03] MEDS: FORMOTEROL FUMARATE 20 MCG/2 ML NEBU INHALATION SCH ×2 (09:04→21:00)
[2019-02-03] MEDS ORDERED: traMADol 50 MG TAB PO PRN (10:27)
[2019-02-03] MEDS: LEVOFLOXACIN 500 MG TAB PO SCH (11:19)
[2019-02-03 11:25] LABS: Glucose,Whole Blood 129 mg/dL (75-99)
--- NOTE | 2019-02-03 11:29 | P.PN ---
Subjective Progress Note Date: 02/03/19 Principal diagnosis: Acute exacerbation of mild intermittent asthma, acute left lower lobe pulmonary embolism this is a 58-year-old white male with recent surgery about a week ago at [facility] for patent foramen ovale. His postoperative course was uneventful, patient was discharged home, and for the last few days he has been complaining of intermittent episodes of cough, wheezing, shortness of breath, and chest tightness. Recent chest x-ray done by his primary care physician showed no evidence of active disease. Patient was sent for a CT of the chest/CT angiogram which came back positive for segmental and subsegmental pulmonary embolism in the left lower lobe. Patient was admitted started on heparin, and I was asked to see him on consultation. Patient is familiar to our service, we have seen him in the past for mostly moderate persistent asthma, however over the last few years, his asthma has been basically stable. Patient used to see Dr. Dinero on a regular basis, and the last time he was seen in our office was over 2 years ago. At any rate patient was examined, and his CT in [place] of the chest was reviewed, indeed he does have a small tiny embolic disease involving the segmental and subsegmental artery of the left lower lobe, but on examination he clearly has findings of asthma exacerbation. Hence I have recommended that we continue heparin, I have also recommended that we start the patient on Solu-Medrol, updrafts, and on Symbicort.considering his cough is productive with yellow phlegm, I have also recommended Zithromax orally. On 01/28/2019 patient seen in follow-up on selective care unit, he is awake and alert, in no acute distress, room air pulse ox the 100%. No complaints of chest pain, but still lots of wheezing and congestion, and physical exam reveal diffuse rhonchi and wheezes bilaterally, no fever or chills, patient has been started on oral Eliquis, he is on IV steroids nebulized bronchodilators and antibiotics or his asthma exacerbation, did receive a dose of IV Lasix per cardiology today On 01/30/2019 patient seen in follow-up on selective care unit, he is awake and alert, though complaining of being significantly bronchospastic and congested, and states he does not feel much improvement in the way of dyspnea and congestion. Not able to bring up much sputum. Lung sounds reveal diffuse rhonchi and wheezes, patient has been treated with IV steroids, Symbicort, nebulized bronchodilators. Sputum culture showed no growth. Todays labs have been noted. On 01/31/2019 patient seen in follow-up on medical surgical floor. He states there has been lack of improvement with his breathing, chest congestion, and wheezing. Has been maximized on medical treatment, patient is coughing, not able to bring up much sputum, he is afebrile, room air pulse ox is 95%, he is tolerating ambulation, he is on oral anticoagulation in the form of Eliquis for pulmonary embolism. Lung sounds are positive for diffuse wheezing and rhonchi, he is been nothing by mouth since midnight for possibility of bronchoscopy with BAL On 02/01/2019 patient seen in follow-up on medical surgical floor. He states he felt better in the afternoon after the bronchoscopy with bronchial wash yesterday, however today he states he feels like he is getting more congested again, and he is not bringing up much sputum. Lung sounds reveal diffuse rhonchi and wheezes. Bronchial wash cultures are still pending, preliminary Gram stain shows moderate gram-positive bacilli, few gram-positive cocci and a few yeast, final culture is pending. Patient is on oral antibiotics in the form of Levaquin, he is on IV Solu-Medrol, Pulmicort and Perforomist, and DuoNeb. Has been no febrile episodes. On 02/02/2019 patient seen in follow-up on medical surgical floor. He is up ambulating, still congested and not bringing up much sputum, lung sounds sound slightly better today, hemodynamically patient is stable, no fever or chills, b ronchial wash viral culture showed evidence of rhinovirus, no other positive cultures. Patient continues on oral Levaquin, patient is on IV Solu-Medrol, Pulmicort, Perforomist, and nebulized bronchodilators, he is requesting to stop his Mucinex, he doesn't think that is helping. He is on oral intake with patient for his pulmonary embolism. Bronchial wash cytology was negative for cells diagnostic of malignant neoplasm. On 02/03/2019 patient is seen in follow-up on medical surgical floor. He is improving, still has some residual congestion, congestive cough, but clinically stable, no fever or chills, wound cultures were positive for rhinovirus only, no other growth, no fever or chills, patient has been ambulating around the unit, tolerating it well, has been maximized the medical treatment, he's been treated with empiric antibiotics, IV steroids, and nebulized bronchodilators, Objective - Vital Signs Vital signs: Vital Signs Temp 98.3 F 02/03/19 07:00 Pulse 64 02/03/19 09:25 Resp 16 02/03/19 07:00 BP 146/90 02/03/19 07:00 Pulse Ox 97 02/03/19 07:00 Intake & Output 02/02/19 02/03/19 02/03/19 18:59 06:59 18:59 Intake Total 120 890 222 Balance 120 890 222 Intake: Oral 120 890 222 Other: Voiding Method Toilet # Voids 2 2 - Exam GENERAL EXAM: Alert, active, 50-year-old white male, on room air, with a pulse ox of 95% comfortable in no apparent distress. HEAD: Normocephalic/atraumatic. EYES: Normal reaction of pupils, equal size. Conjunctiva pink, sclera white. NOSE: Clear with pink turbinates. THROAT: No erythema or exudates. NECK: No masses, no JVD, no thyroid enlargement, no adenopathy. CHEST: No chest wall deformity. Symmetrical expansion. LUNGS: Equal air entry with diffuse rhonchi and wheezes, congestive cough CVS: Regular rate and rhythm, normal S1 and S2, no gallops, no murmurs, no rubs ABDOMEN: Soft, nontender. No hepatosplenomegaly, normal bowel sounds, no guarding or rigidity. EXTREMITIES: No clubbing, no edema, no cyanosis, 2+ pulses and upper and lower extremities. MUSCULOSKELETAL: Muscle strength and tone normal. SPINE: No scoliosis or deformity SKIN: No rashes CENTRAL NERVOUS SYSTEM: Alert and oriented -3. No focal deficits, tone is normal in all 4 extremities. PSYCHIATRIC: Alert and oriented -3. Appropriate affect. Intact judgment and insight. - Labs CBC & Chem 7: 01/29/19 06:14 01/29/19 06:14 Labs: Abnormal Lab Results - Last 24 Hours (Table) 02/02/19 02/02/19 02/02/19 Range/Units 11:47 17:22 21:06 POC Glucose (mg/dL) 116 H 125 H 134 H (75-99) mg/dL 02/03/19 Range/Units 07:33 POC Glucose (mg/dL) 118 H (75-99) mg/dL Microbiology - Last 24 Hours (Table) 01/31/19 15:07 Gram Stain - Final Bronchial Washings - Right Bronchial Washings Culture - Final Assessment and Plan Plan: Assessment: 1 acute exacerbation of mild intermittent asthma, possibly related to possibility of aspiration during his surgical procedure for patent beltre ovale repair 2 acute. Tracheobronchitis 3 acute left lower lobe pulmonary embolism 4 history of degenerative joint disease, and history of arthroplasties and arthroscopies in the last few years. Plan: Patient is improving, stable, although still has some wheezing and congestion, tolerating ambulation, no fever or chills, with a stop the antibiotics, patient can be discharged home on prednisone taper, nebulized DuoNeb treatments. We'll see him in the office in follow-up in 7-10 days I performed a history & physical examination of the patient and discussed their management with my nurse practitioner, Janet Red. I reviewed the nurse practitioner's note and agree with the documented findings and plan of care. Lung sounds are positive for diffuse wheezes throughout the lung martell. The findings and the impression was discussed with the patient. I attest to the documentation by the nurse practitioner. Time with Patient: Less than 30
--- NOTE | 2019-02-03 11:46 | P.PN ---
Subjective Patient continues to complain of chest pain states he's had some hemoptysis and some rectal bleeding. Patient anxious to be discharged home cleared by pulmonology. We'll evaluate chest x-ray and CBC Objective - Vital Signs Vital signs: Vital Signs Temp 98.3 F 02/03/19 07:00 Pulse 64 02/03/19 09:25 Resp 16 02/03/19 07:00 BP 146/90 02/03/19 07:00 Pulse Ox 97 02/03/19 07:00 Intake & Output 02/02/19 02/03/19 02/03/19 18:59 06:59 18:59 Intake Total 120 890 222 Balance 120 890 222 Intake: Oral 120 890 222 Other: Voiding Method Toilet # Voids 2 2 - Constitutional General appearance: Present: mild distress - EENT Eyes: Present: PERRLA Ears: bilateral: normal - Neck Neck: Present: normal ROM - Respiratory Respiratory: bilateral: diminished, rhonchi, wheezing - Cardiovascular Rhythm: regular - Gastrointestinal General gastrointestinal: Present: soft - Integumentary Integumentary: Present: normal - Neurologic Neurologic: Present: CNII-XII intact - Musculoskeletal Musculoskeletal: Present: generalized weakness - Psychiatric Psychiatric: Present: A&O x's 3, appropriate affect, intact judgment & insight - Labs CBC & Chem 7: 01/29/19 06:14 01/29/19 06:14 Labs: Abnormal Lab Results - Last 24 Hours (Table) 02/02/19 02/02/19 02/02/19 Range/Units 11:47 17:22 21:06 POC Glucose (mg/dL) 116 H 125 H 134 H (75-99) mg/dL 02/03/19 02/03/19 Range/Units 07:33 11:16 POC Glucose (mg/dL) 118 H 129 H (75-99) mg/dL Microbiology - Last 24 Hours (Table) 01/31/19 15:07 Gram Stain - Final Bronchial Washings - Right Bronchial Washings Culture - Final Assessment and Plan Plan: Assessment Acute left lower pulmonary embolism Acute asthma exacerbation mild intermittent tracheobronchitis Recent repair of patent foramen ovale Multiple CVA/TIAs Paroxysmal atrial fibrillation Hypertrophic cardiomyopathy Plan CBC and chest x-ray Hopeful discharge soon
--- NOTE | 2019-02-03 12:19 | XR ---
EXAMINATION TYPE: XR chest 2V DATE OF EXAM: 02/03/2019 COMPARISON: Chest x-ray from 8 days ago. CTA chest from 7 days ago. HISTORY: Cough. Left-sided pulmonary embolism. TECHNIQUE: Frontal and lateral views of the chest are obtained. FINDINGS: There is tiny left pleural effusion with patchy left basilar atelectasis and/or infiltrate . Right lung is clear. The cardiac silhouette size is stable and within normal limits. Dextroconvex scoliosis is redemonstrated. Cholecystectomy clips are noted. IMPRESSION: Tiny left pleural effusion with patchy left basilar acute infiltrate and/or atelectasis.
[2019-02-03 12:30] LABS: Basophils % (A) 0 %; Eosinophils # (A) 0.1 k/uL (0-0.7); Eosinophils % (A) 1 %; HCT 44.3 % (39.0-53.0); HGB 14.8 gm/dL (13.0-17.5); Lymphocytes # (A) 0.5 k/uL (1.0-4.8); Lymphocytes % (A) 4 %; MCH 32.1 pg (25.0-35.0); MCHC 33.4 g/dL (31.0-37.0); Mean Platelet Volume 7.2; Monocytes # (A) 0.3 k/uL (0-1.0); Monocytes % (A) 2 %; Neutrophils # (A) 11.8 k/uL (1.3-7.7); Neutrophils % (A) 93 %; Platelet Count 380 k/uL (150-450); RBC 4.61 m/uL (4.30-5.90); RDW 14.5 % (11.5-15.5); WBC 12.7 k/uL (3.8-10.6)
[2019-02-03 15:05] VITALS: BMI 25.0
[2019-02-03 20:47] LABS: Glucose,Whole Blood 120 mg/dL (75-99)
[2019-02-03] MEDS: MONTELUKAST 10 MG TAB PO SCH (21:09)
[2019-02-04] MEDS: methylPREDNISolone SOD SUCCI 125 MG/2 ML VIAL IV SCH ×5 (00:44→23:54)
[2019-02-04] MEDS: MORPHINE SULFATE 4 MG/ML SYRINGE IV PRN ×6 (00:56→22:22)
[2019-02-04 07:19] LABS: Glucose,Whole Blood 158 mg/dL (75-99)
[2019-02-04] MEDS: FORMOTEROL FUMARATE 20 MCG/2 ML NEBU INHALATION SCH ×2 (07:26→20:03)
[2019-02-04] MEDS: IPRATROPIUM-ALBUTEROL 3 ML NEB INHALATION SCH ×4 (07:26→20:03)
[2019-02-04] MEDS: BUDESONIDE 1 MG/2 ML NEBU INHALATION SCH ×2 (07:26→20:03)
[2019-02-04] MEDS: APIXABAN 5 MG TAB PO SCH ×2 (07:59→20:38)
[2019-02-04] MEDS: ASPIRIN 81 MG PO SCH (07:59)
[2019-02-04] MEDS: METOPROLOL TARTRATE 25 MG TAB PO SCH ×2 (07:59→20:38)
[2019-02-04] MEDS: PANTOPRAZOLE 40 MG TABLET PO SCH (07:59)
[2019-02-04] MEDS: guaiFENesin 600 MG TABLET.ER PO SCH ×2 (08:00→20:37)
[2019-02-04] MEDS: DILTIAZEM ORAL 60 MG TAB PO SCH ×3 (08:00→22:25)
[2019-02-04] MEDS: INSULIN ASPART (NovoLOG) 100 UNIT/ML VIAL SQ SCH ×4 (08:02→20:43)
[2019-02-04 11:46] LABS: Glucose,Whole Blood 122 mg/dL (75-99)
[2019-02-04] MEDS: LEVOFLOXACIN 500 MG TAB PO SCH (11:51)
--- NOTE | 2019-02-04 12:38 | P.CONS ---
History of Present Illness - Reason for Consult Consult date: 02/04/19 Rectal bleeding Requesting physician: Lopez Branch - Chief Complaint Shortness of breath - History of Present Illness 58-year-old gentleman with a past medical history of asthma, TIA CVA June 2018, recent PFO closure at [facility] admitted with acute shortness of breath. CT chest reported pulmonary embolism left lower lobe. Bilateral lower Dopplers negative for DVT. No evidence of RV strain. Consult requested for painless rectal bleeding. Patient has been placed on ELIQUIS twice daily and has noticed his bowel movements with red blood. Blood is seen also on wiping. He has no history GI bleed. Denies constipation or diarrhea. His memory last colonoscopy was [address] Grubbs for evaluation of chronic intermittent diarrhea with findings of a normal-appearing colon no evidence of colitis colorectal neoplasia with scattered sigmoid diverticulosis. Denies abdominal pain. No hematemesis or melena. Hemoglobin stable 14.8. White count 12.7. Platelet 380. INR 1.0. BUN 23. Creatinine 0.6. Review of Systems Constitutional: Denies fever, chills, sweats, weight gain, or loss. HEENT: Negative for migraines, blurred vision or loss, earaches, drainage, tinnitus, oral mucosal lesions, dysphagia, or odynophagia. Cardiac: Negative for chest pain, arrhythmias, or palpitation. Respiratory: Admitted with shortness of breath denies, hemoptysis, cough, or sputum production. Gastrointestinal: See HPI for pertinent findings. Genitourinary: Negative for hematuria, urgency, frequency, polyuria, dysuria, or penile discharge. Musculoskeletal: Negative for muscle aches, swelling, arthritis, and arthralgi as. Neurologic: History of stroke or TIA. Endocrine: Negative for thyroid problems. Skin: Negative for rash or itching. Psychiatric: Negative history for depression and anxietyale Past Medical History Past Medical History: Asthma, Musculoskeletal Disorder, Pneumonia Additional Past Medical History / Comment(s): HEMOPTYSIS. back spasms, dx. w/C- Diff in July, w/intermittent diarrhea, hx. mild cardiomyopathy-no treatment for History of Any Multi-Drug Resistant Organisms: C-DIFF Year Discovered:: 2014 MDRO Source:: colon Past Surgical History: Heart Catheterization Additional Past Surgical History / Comment(s): CHEST TUBE (Infection, drainage), LEFT KNEE ARTHROSCOPY X3, RIGHT KNEE ARTHROSCOPY X3 LEFT SHOULDER, BONE GRAFT FROM RIGHT HIP TO LEFT ANKLE, BRONCHOSCOPY JAN 2014 Past Anesthesia/Blood Transfusion Reactions: No Reported Reaction Past Psychological History: Anxiety Smoking Status: Never smoker Past Alcohol Use History: None Reported Past Drug Use History: None Reported - Past Family History Mother Family Medical History: Cancer Additional Family Medical History / Comment(s): NON [place] LYMPHOMA MOTHER, BREAST CA HALF SISTER Father Family Medical History: COPD Additional Family Medical History / Comment(s): Father of complications of a MVA. Medications and Allergies Home Medications Medication Instructions Recorded Confirmed Type Albuterol Inhaler [Ventolin 1 puff INHALATION RT-DAILY PRN 01/23/15 01/27/19 History Inhaler] Dextroamphetamine/Amphetamine 20 mg PO BID 09/24/17 01/27/19 History [Adderall Xr] HYDROcodone/APAP 10-325MG [[place] 1 tab PO Q4HR PRN #90 tab 09/25/17 01/27/19 Rx 10-325] Aspirin 325 mg PO DAILY 01/27/19 01/27/19 History Atorvastatin Calcium [Lipitor] 40 mg PO DAILY 01/27/19 01/27/19 History CHLORPHEN-HYDROcod 8-10mg/5ml 5 ml PO Q12H PRN 01/27/19 01/27/19 History [Tussionex] Clopidogrel Bisulfate [Plavix] 75 mg PO DAILY 01/27/19 01/27/19 History Allergies Allergy/AdvReac Type Severity Reaction Status Date / Time Penicillins Allergy Rash/Hives Verified 01/27/19 13:57 Physical Exam Vitals: Vital Signs Temp Pulse Pulse Resp BP Pulse Ox 02/04/19 11:32 72 02/04/19 11:24 74 02/04/19 07:49 70 02/04/19 07:44 74 02/04/19 07:43 74 02/04/19 07:29 68 97 02/04/19 07:02 97.7 F 51 L 16 128/77 97 02/04/19 01:20 97.8 F 51 L 16 143/84 97 02/03/19 21:25 76 02/03/19 21:16 76 02/03/19 21:01 72 02/03/19 19:00 98.4 F 54 L 16 132/75 97 02/03/19 14:23 97.6 F 52 L 16 126/71 97 Intake and Output 02/03/19 02/04/19 02/04/19 22:59 06:59 14:59 Intake Total 150 200 180 Balance 150 200 180 Intake: Oral 150 200 180 Other: Voiding Method Toilet # Voids 1 2 General appearance: The patient is alert, oriented, in no acute distress. HET: Head is normocephalic and atraumatic. Pupils are equal and reactive. [place] pharynx is clear without lesions. Neck: Supple without lymphadenopathy. Trachea midline. Heart: S1 S2. Regular rate and rhythm. Lungs: No crackles or wheezes are heard. Abdomen: Soft, nontender, nondistended with bowel sounds. No peritoneal signs. No palpable organomegaly or masses. Extremities: Normal skin color and turgor. No cyanosis, rash, ulceration, clubbing, or edema. Radial and pedal pulses are 2/4 bilaterally. Neurological: No focal deficits. Strength and sensation are grossly intact. Results CBC & Chem 7: 02/03/19 11:53 01/29/19 06:14 Labs: Abnormal Lab Results - Last 24 Hours (Table) 02/03/19 02/03/19 02/04/19 Range/Units 11:53 20:36 07:05 WBC 12.7 H (3.8-10.6) k/uL Neutrophils # 11.8 H (1.3-7.7) k/uL Lymphocytes # 0.5 L (1.0-4.8) k/uL POC Glucose (mg/dL) 120 H 158 H (75-99) mg/dL 02/04/19 Range/Units 11:44 WBC (3.8-10.6) k/uL Neutrophils # (1.3-7.7) k/uL Lymphocytes # (1.0-4.8) k/uL POC Glucose (mg/dL) 122 H (75-99) mg/dL Microbiology - Last 24 Hours (Table) 01/31/19 15:07 Fungal Culture - Preliminary Bronchial Washings - Right Gege albicans CT scan - chest: report reviewed (Dr. Grubbs) Assessment and Plan (1) Rectal bleeding Narrative/Plan: 58-year-old male admitted with shortness of breath acute pulmonary embolism left lung recent PFO closure history of TIA CVA maintained on ELIQUIS with development of painless bright red blood per rectum with underlying history of colonic diverticulosis last colonoscopy evaluation 2014. Possible perirectal inflammation anal fissure hemorrhoidal possible colonic diverticulosis exacerbated by anticoagulation. Hemoglobin stable at 14.8. Current Visit: Yes Status: Acute Code(s): K62.5 - HEMORRHAGE OF ANUS AND RECTUM SNOMED Code(s): 12959391 (2) Colon, diverticulosis Current Visit: Yes Status: Acute Code(s): K57.30 - DVRTCLOS OF LG INT W/O P ERFORATION OR ABSCESS W/O BLEEDING SNOMED Code(s): 681663903 (3) Pulmonary embolism Current Visit: Yes Status: Acute Code(s): I26.99 - OTHER PULMONARY EMBOLISM WITHOUT ACUTE COR PULMONALE SNOMED Code(s): 34460085 (4) S/P patent foramen ovale closure Current Visit: Yes Status: Acute Code(s): Z87.74 - PERSONAL HISTORY OF CONGENITAL MALFORM OF HEART AND CIRC SYS SNOMED Code(s): 041877309 Plan: 1. Rectal bleeding is painless and hemoglobin is stable 14.8 will trial Anusol HC 25 mg per rectum daily at bedtime and observe. Monitor CBC. Inpatient endoscopy not planned at this time patient is receiving anticoagulation for new onset of acute pulmonary embolism. Advised to follow-up in office in 2-3 weeks for reevaluation and discussion of possible outpatient endoscopy if necessary. Avoid constipation. We'll follow with you. CBC monitoring. Thank you for this kind referral and the opportunity to participate in the care of your patient. This consultation was discussed with Dr. Grubbs. The impression and plan of care have been directed as dictated.
--- NOTE | 2019-02-04 13:28 | P.PN ---
Subjective Progress Note Date: 02/04/19 Principal diagnosis: Acute exacerbation of mild intermittent asthma, acute left lower lobe pulmonary embolism this is a 58-year-old white male with recent surgery about a week ago at [facility] for patent foramen ovale. His postoperative course was uneventful, patient was discharged home, and for the last few days he has been complaining of intermittent episodes of cough, wheezing, shortness of breath, and chest tightness. Recent chest x-ray done by his primary care physician showed no evidence of active disease. Patient was sent for a CT of the chest/CT angiogram which came back positive for segmental and subsegmental pulmonary embolism in the left lower lobe. Patient was admitted started on heparin, and I was asked to see him on consultation. Patient is familiar to our service, we have seen him in the past for mostly moderate persistent asthma, however over the last few years, his asthma has been basically stable. Patient used to see Dr. Dinero on a regular basis, and the last time he was seen in our office was over 2 years ago. At any rate patient was examined, and his CT in [place] of the chest was reviewed, indeed he does have a small tiny embolic disease involving the segmental and subsegmental artery of the left lower lobe, but on examination he clearly has findings of asthma exacerbation. Hence I have recommended that we continue heparin, I have also recommended that we start the patient on Solu-Medrol, updrafts, and on Symbicort.considering his cough is productive with yellow phlegm, I have also recommended Zithromax orally. On 01/28/2019 patient seen in follow-up on selective care unit, he is awake and alert, in no acute distress, room air pulse ox the 100%. No complaints of chest pain, but still lots of wheezing and congestion, and physical exam reveal diffuse rhonchi and wheezes bilaterally, no fever or chills, patient has been started on oral Eliquis, he is on IV steroids nebulized bronchodilators and antibiotics or his asthma exacerbation, did receive a dose of IV Lasix per cardiology today On 01/30/2019 patient seen in follow-up on selective care unit, he is awake and alert, though complaining of being significantly bronchospastic and congested, and states he does not feel much improvement in the way of dyspnea and congestion. Not able to bring up much sputum. Lung sounds reveal diffuse rhonchi and wheezes, patient has been treated with IV steroids, Symbicort, nebulized bronchodilators. Sputum culture showed no growth. Todays labs have been noted. On 01/31/2019 patient seen in follow-up on medical surgical floor. He states there has been lack of improvement with his breathing, chest congestion, and wheezing. Has been maximized on medical treatment, patient is coughing, not able to bring up much sputum, he is afebrile, room air pulse ox is 95%, he is tolerating ambulation, he is on oral anticoagulation in the form of Eliquis for pulmonary embolism. Lung sounds are positive for diffuse wheezing and rhonchi, he is been nothing by mouth since midnight for possibility of bronchoscopy with BAL On 02/01/2019 patient seen in follow-up on medical surgical floor. He states he felt better in the afternoon after the bronchoscopy with bronchial wash yesterday, however today he states he feels like he is getting more congested again, and he is not bringing up much sputum. Lung sounds reveal diffuse rhonchi and wheezes. Bronchial wash cultures are still pending, preliminary Gram stain shows moderate gram-positive bacilli, few gram-positive cocci and a few yeast, final culture is pending. Patient is on oral antibiotics in the form of Levaquin, he is on IV Solu-Medrol, Pulmicort and Perforomist, and DuoNeb. Has been no febrile episodes. On 02/02/2019 patient seen in follow-up on medical surgical floor. He is up ambulating, still congested and not bringing up much sputum, lung sounds sound slightly better today, hemodynamically patient is stable, no fever or chills, b ronchial wash viral culture showed evidence of rhinovirus, no other positive cultures. Patient continues on oral Levaquin, patient is on IV Solu-Medrol, Pulmicort, Perforomist, and nebulized bronchodilators, he is requesting to stop his Mucinex, he doesn't think that is helping. He is on oral intake with patient for his pulmonary embolism. Bronchial wash cytology was negative for cells diagnostic of malignant neoplasm. On 02/03/2019 patient is seen in follow-up on medical surgical floor. He is improving, still has some residual congestion, congestive cough, but clinically stable, no fever or chills, wound cultures were positive for rhinovirus only, no other growth, no fever or chills, patient has been ambulating around the unit, tolerating it well, has been maximized the medical treatment, he's been treated with empiric antibiotics, IV steroids, and nebulized bronchodilators On 02/04/2019 patient seen in follow-up on medical surgical floor. His breathing is stable, although he still sounds congested, with scattered rhonchi, clinically stable, no fever or chills. Room air pulse ox is 97%, yesterday's follow-up chest x-ray showed a tiny left pleural effusion with patchy left basilar infiltrate/atelectasis. Bronchial wash cultures have been negative thus far except for Gege albicans. Viral culture was positive for rhinovirus only. Patient developed some rectal bleeding, and GI service has been consulted, hemoglobin is 14.8, hemodynamically stable, anticipate discharge home today once evaluated by GI service. Objective - Vital Signs Vital signs: Vital Signs Temp 97.7 F 02/04/19 07:02 Pulse 72 02/04/19 11:32 Resp 16 02/04/19 07:02 BP 128/77 02/04/19 07:02 Pulse Ox 97 02/04/19 07:29 Intake & Output 02/03/19 02/04/19 02/04/19 18:59 06:59 18:59 Intake Total 440 350 180 Balance 440 350 180 Weight 86 kg Intake: Oral 440 350 180 Other: Voiding Method Toilet # Voids 3 2 - Exam GENERAL EXAM: Alert, active, 50-year-old white male, on room air, with a pulse ox of 95% comfortable in no apparent distress. HEAD: Normocephalic/atraumatic. EYES: Normal reaction of pupils, equal size. Conjunctiva pink, sclera white. NOSE: Clear with pink turbinates. THROAT: No erythema or exudates. NECK: No masses, no JVD, no thyroid enlargement, no adenopathy. CHEST: No chest wall deformity. Symmetrical expansion. LUNGS: Equal air entry with diffuse rhonchi congestive cough CVS: Regular rate and rhythm, normal S1 and S2, no gallops, no murmurs, no rubs ABDOMEN: Soft, nontender. No hepatosplenomegaly, normal bowel sounds, no guarding or rigidity. EXTREMITIES: No clubbing, no edema, no cyanosis, 2+ pulses and upper and lower extremities. MUSCULOSKELETAL: Muscle strength and tone normal. SPINE: No scoliosis or deformity SKIN: No rashes CENTRAL NERVOUS SYSTEM: Alert and oriented -3. No focal deficits, tone is normal in all 4 extremities. PSYCHIATRIC: Alert and oriented -3. Appropriate affect. Intact judgment and insight. - Labs CBC & Chem 7: 02/03/19 11:53 01/29/19 06:14 Labs: Abnormal Lab Results - Last 24 Hours (Table) 02/03/19 02/04/19 02/04/19 Range/Units 20:36 07:05 11:44 POC Glucose (mg/dL) 120 H 158 H 122 H (75-99) mg/dL Microbiology - Last 24 Hours (Table) 01/31/19 15:07 Fungal Culture - Preliminary Bronchial Washings - Right Gege albicans Assessment and Plan Plan: Assessment: 1 acute exacerbation of mild intermittent asthma, possibly related to possibility of aspiration during his surgical procedure for patent beltre ovale repair 2 acute. Tracheobronchitis 3 acute left lower lobe pulmonary embolism 4 history of degenerative joint disease, and history of arthroplasties and arthroscopies in the last few years. Plan: Still has some chest congestion, but overall patient remains stable, no fever or chills, no acute events overnight, he is on oral anticoagulation, he has developed some rectal bleeding, awaiting GI evaluation after which patient is anticipated to go home, hemoglobin stable, hemodynamically stable. I performed a history & physical examination of the patient and discussed their management with my nurse practitioner, Janet Red. I reviewed the nurse practitioner's note and agree with the documented findings and plan of care. Lung sounds are positive for diffuse wheezes throughout the lung martell. The findings and the impression was discussed with the patient. I attest to the documentation by the nurse practitioner. Time with Patient: Less than 30
[2019-02-04 16:59] LABS: Glucose,Whole Blood 101 mg/dL (75-99)
[2019-02-04] MEDS: MONTELUKAST 10 MG TAB PO SCH (20:38)
[2019-02-04] MEDS: HYDROCORTISONE SUPPOSITORY 25 MG SUPP RECTAL SCH (20:40)
[2019-02-04 20:49] LABS: Glucose,Whole Blood 189 mg/dL (75-99)
--- NOTE | 2019-02-05 00:09 | P.PN ---
Subjective Progress Note Date: 02/04/19 Principal diagnosis: Acute pulmonary embolism Acute asthma exacerbation Patient is a 58-year-old male with a known history of asthma, history of multiple TIAs/CVA due to PFO who recently had cardiac Patient with repair of PFO at [facility] about 2 weeks ago was sent to by his primary care physician for CT angiogram of the chest. Patient started having cough with some green sputum production since Thursday and is being followed by primary care physician. Patient was started on Levaquin which he did take 1 dose. Today patient has been having worsening shortness of breath and chest pain with deep breathing and was sent to ER for CT angiogram to rule out pulmonary embolism by his primary care physician. Patient otherwise denied any fever or chills. No nausea vomiting or abdominal pain. No diarrhea. CT angiogram of the chest showed segmental and subsegmental pulmonary embolism in the left lower lobe. Patient was started on heparin drip. 01/28/2019 Patient is still complaining of shortness of breath. Otherwise being continued on anticoagulation with Eliquis. Currently and antibodies the form of azithromycin. Continued on breathing treatments and steroids. Pulmonary and Cardiology on board. No fever no chills. No other acute overnight issues. 01/29/2019 Patient says that he still having shortness of breath but with slight improvement. Still having expiratory wheezing and scattered rhonchi. Currently on oxygen whereas of cannula high flow. Continued on IV steroids, breathing treatments and antibiotics and also on anticoagulation with Eliquis. No other acute overnight issues. 01/30/2019 Patient says that his breathing status is still the same. Still having diffuse rhonchi and wheezing. On oxygen therapy. No fever no chills. Currently being continued on IV steroids breathing treatments and antibiotics as well as anticoagulation for pulmonary embolism. Pulmonary is planning for bronchoscopy tomorrow. No complaints of chest pain. No leg swelling. No nausea vomiting or diarrhea. 02/04/2019 Patient is currently being treated for acute asthma exacerbation and acute left lower lobe pulmonary embolism. Patient is currently ambulating in the hallway. Saturating well on room air. Currently being continued on IV steroids and DuoNeb's. Completed antibiotic course. Patient is status post bronchoscopy. BAL fluid culture is negative except Gege albicans. Otherwise patient developed rectal bleeding and GI was consulted. Hemoglobin is stable otherwise. Patient has been febrile afebrile. anticipate discharge home once cleared by GI. Current medications reviewed. Objective - Vital Signs Vital signs: Vital Signs Temp 98.4 F 02/04/19 19:20 Pulse 70 02/04/19 20:26 Resp 16 02/04/19 19:20 BP 139/85 02/04/19 19:20 Pulse Ox 96 02/04/19 19:20 Intake & Output 02/04/19 02/04/19 02/05/19 06:59 18:59 06:59 Intake Total 350 680 Balance 350 680 Intake: Oral 350 680 Other: Voiding Method Toilet # Voids 2 3 - Exam PHYSICAL EXAMINATION: Patient is lying in the bed comfortably, no acute distress, awake alert and oriented.. HEENT: Normocephalic. Neck is supple. Pupils reactive. Nostrils clear. Oral cavity is moist. Ears reveal no drainage. Neck reveals no JVD, carotid bruits, or thyromegaly. CHEST EXAMINATION: Trachea is central. Symmetrical expansion. Scattered rhonchi present. Mild expiratory wheeze.... CARDIAC: Normal S1, S2 with no gallops. No murmurs ABDOMEN: Soft. Bowel sounds normal. No organomegaly. No abdominal bruits. Extremities: reveal no edema. No clubbing or cyanosis Neurologically awake, alert, oriented x3 with well-coordinated movements. No focal deficits noted Skin: No rash or skin lesions. Psychiatric: Coperative. Nonsuicidal Musculoskeletal: No joint swelling or deformity. Normal range of motion. - Labs CBC & Chem 7: 02/03/19 11:53 01/29/19 06:14 Labs: Abnormal Lab Results - Last 24 Hours (Table) 02/04/19 02/04/19 02/04/19 Range/Units 07:05 11:44 16:56 POC Glucose (mg/dL) 158 H 122 H 101 H (75-99) mg/dL 02/04/19 Range/Units 20:38 POC Glucose (mg/dL) 189 H (75-99) mg/dL Microbiology - Last 24 Hours (Table) 01/31/19 15:07 Fungal Culture - Preliminary Bronchial Washings - Right Gege albicans Assessment and Plan Assessment: Acute left lower lobe pulmonary embolism segmental and subsegmental Acute asthma exacerbation Rectal bleed. Acute Tracheobronchitis Shortness of breath secondary to [facility] Multiple CVA/TIAs Degenerative joint disease Plan: Patient was continued on heparin drip. changed to oral anticoagulants. Patient be continued on breathing treatments and IV steroids. Continue with antibiotics in the form of azithromycin changed to Levaquin. He completed antibiotic course. Further recommendations based on the clinical course. Pulmonary and cardiology and GI on board. Discussed the patient at bedside in detail. Time with Patient: Greater than 30
[2019-02-05] MEDS: MORPHINE SULFATE 4 MG/ML SYRINGE IV PRN ×5 (02:50→20:33)
[2019-02-05] MEDS: methylPREDNISolone SOD SUCCI 125 MG/2 ML VIAL IV SCH ×3 (05:48→18:09)
[2019-02-05 07:12] LABS: Glucose,Whole Blood 121 mg/dL (75-99)
[2019-02-05 07:13] LABS: Basophils % (A) 0 %; Eosinophils % (A) 0 %; HCT 43.2 % (39.0-53.0); HGB 14.3 gm/dL (13.0-17.5); Lymphocytes # (A) 0.4 k/uL (1.0-4.8); Lymphocytes % (A) 2 %; MCH 31.5 pg (25.0-35.0); MCHC 33.1 g/dL (31.0-37.0); MCV 95.2 fL (80.0-100.0); Mean Platelet Volume 7.1; Monocytes # (A) 0.3 k/uL (0-1.0); Monocytes % (A) 2 %; Neutrophils # (A) 14.9 k/uL (1.3-7.7); Neutrophils % (A) 95 %; Platelet Count 384 k/uL (150-450); RBC 4.53 m/uL (4.30-5.90); WBC 15.7 k/uL (3.8-10.6)
[2019-02-05 07:20] LABS: African American GFR (CKD) >90 (>60 ml/min/1.73 sqM); Anion Gap 4 mmol/L; Blood Urea Nitrogen 25 mg/dL (9-20); Calcium 8.8 mg/dL (8.4-10.2); Carbon Dioxide 32 mmol/L (22-30); Chloride 103 mmol/L (98-107); Glucose 116 mg/dL (74-99); Potassium 4.8 mmol/L (3.5-5.1); Sodium 139 mmol/L (137-145)
[2019-02-05] MEDS: INSULIN ASPART (NovoLOG) 100 UNIT/ML VIAL SQ SCH ×4 (08:14→21:24)
[2019-02-05] MEDS: DILTIAZEM ORAL 60 MG TAB PO SCH ×3 (08:42→21:25)
[2019-02-05] MEDS: ASPIRIN 81 MG PO SCH (08:42)
[2019-02-05] MEDS: guaiFENesin 600 MG TABLET.ER PO SCH (08:42)
[2019-02-05] MEDS: METOPROLOL TARTRATE 25 MG TAB PO SCH ×2 (08:42→21:24)
[2019-02-05] MEDS: APIXABAN 5 MG TAB PO SCH ×2 (08:43→21:24)
[2019-02-05] MEDS: PANTOPRAZOLE 40 MG TABLET PO SCH (08:43)
[2019-02-05] MEDS: IPRATROPIUM-ALBUTEROL 3 ML NEB INHALATION SCH ×4 (09:55→19:55)
[2019-02-05] MEDS: BUDESONIDE 1 MG/2 ML NEBU INHALATION SCH ×2 (09:55→19:55)
[2019-02-05] MEDS: FORMOTEROL FUMARATE 20 MCG/2 ML NEBU INHALATION SCH ×2 (09:55→19:55)
--- NOTE | 2019-02-05 11:24 | PN ---
PROGRESS NOTE DATE OF SERVICE: 02/05/2019 Patient is a 58-year-old pleasant white male admitted to the hospital with shortness of breath and subsequently diagnosed with pulmonary embolism. The patient has been on anticoagulation with Eliquis for the last 3 weeks since PFO repair at the [facility] on January 13. He has prior history of CVA/TIA in the past. For the last 3 days, the patient has started having some rectal bleeding. He had one bowel movement every day with bright red blood with occasional clots. This morning did not have any further bleeding. His last colonoscopy was about 4 or 5 years ago and according to him it was within normal limits. His hemoglobin remained stable at 15 g/dL. He denies any abdominal pain. No nausea, vomiting. Still complains of some shortness of breath. He is on steroids as well as antibiotics for acute asthma exacerbation. PHYSICAL EXAMINATION: He appears comfortable, in no apparent distress. VITAL SIGNS: Stable. Blood pressure is 138/76, pulse rate 50, temperature 98.8. HEENT: Examination unremarkable, conjunctivae are pink, sclerae nonicteric, oral cavity no lesions. NECK: No JVD of lymph node enlargement. CHEST: Clear to auscultation, decreased breath sounds bilaterally. HEART: Regular rate and rhythm. ABDOMEN: Soft. Bowel sounds are positive. No organomegaly. EXTREMITIES: No pedal edema. SKIN: No rashes. NEUROLOGIC: Alert and oriented x3. No focal deficits. LABS: WBC 15.7, hemoglobin 14.3, platelets are normal. Yesterday hemoglobin was 14.8. BUN is 25, creatinine 0.65. IMPRESSION: 1. Status post PFO repair 3 weeks ago at [facility] for recurrent cerebrovascular accident. 2. Atrial fibrillation on Eliquis for 3 weeks. 3. Pulmonary embolism diagnosed 10 days ago. 4. Rectal bleeding for the last 3 days, one episode a day, no significant drop in hemoglobin. In fact, hemoglobin today is 15 g/dL. Last colonoscopy 5 years ago was within normal limits. Most likely dealing with bleeding from internal hemorrhoids but other colonic source cannot be excluded. He remains hemodynamically stable. 5. Exacerbation of asthma, on IV steroids. RECOMMENDATIONS: I had a lengthy discussion with the patient regarding possible colonoscopy in the near future, since there is no significant amount of bleeding, at this time he can continue with his oral anticoagulation and he can follow up in the office in a week from now and will consider an outpatient colonoscopy in the next few weeks. However, in the meantime, if he has worsening bleeding, will have to do endoscopy intervention during this hospitalization. Patient really wants to go home today or tomorrow and I suggested that we can follow him very closely on outpatient basis and monitor bleeding closely. Thank you for this consultation. DAJUAN / GAUTAM: [id number] /
[2019-02-05 12:17] LABS: Glucose,Whole Blood 132 mg/dL (75-99)
--- NOTE | 2019-02-05 12:45 | P.PN ---
Subjective Patient is a 58-year-old male with a known history of asthma, history of multiple TIAs/CVA due to PFO who recently had cardiac Patient with repair of PFO at [facility] about 2 weeks ago was sent to by his primary care physician for CT angiogram of the chest. Patient started having cough with some green sputum production since Thursday and is being followed by primary care physician. Patient was started on Levaquin which he did take 1 dose. Today patient has been having worsening shortness of breath and chest pain with deep breathing and was sent to ER for CT angiogram to rule out pulmonary embolism by his primary care physician. Patient otherwise denied any fever or chills. No nausea vomiting or abdominal pain. No diarrhea. CT angiogram of the chest showed segmental and subsegmental pulmonary embolism in the left lower lobe. Patient was started on heparin drip. 01/28/2019 Patient is still complaining of shortness of breath. Otherwise being continued on anticoagulation with Eliquis. Currently and antibodies the form of azithromycin. Continued on breathing treatments and steroids. Pulmonary and Cardiology on board. No fever no chills. No other acute overnight issues. 01/29/2019 Patient says that he still having shortness of breath but with slight improvement. Still having expiratory wheezing and scattered rhonchi. Currently on oxygen whereas of cannula high flow. Continued on IV steroids, breathing treatments and antibiotics and also on anticoagulation with Eliquis. No other acute overnight issues. 01/30/2019 Patient says that his breathing status is still the same. Still having diffuse rhonchi and wheezing. On oxygen therapy. No fever no chills. Currently being continued on IV steroids breathing treatments and antibiotics as well as anticoagulation for pulmonary embolism. Pulmonary is planning for bronchoscopy tomorrow. No complaints of chest pain. No leg swelling. No nausea vomiting or diarrhea. 02/04/2019 Patient is currently being treated for acute asthma exacerbation and acute left lower lobe pulmonary embolism. Patient is currently ambulating in the hallway. Saturating well on room air. Currently being continued on IV steroids and DuoNeb's. Completed antibiotic course. Patient is status post bronchoscopy. BAL fluid culture is negative except Gege albicans. Otherwise patient developed rectal bleeding and GI was consulted. Hemoglobin is stable otherwise. Patient has been febrile afebrile. anticipate discharge home once cleared by GI. 02/05/2019 Patient is awake. He still complaining of from significant chest pain that he needs more than 4. He thinks the Toradol is not helping him. He still have some dyspnea with coughing up blood. Also he has blood per rectum which is suspected from hemorrhoids over GI consulted to rule out other causes. His hemoglobin is stable at 14.3 ,however he still WBC is 15.7 K. Creatinine is normal at 0.6 and she was controlled. Patient has been followed by several consultants including pulmonary, cardiology teams. Objective - Vital Signs Vital signs: Vital Signs Temp 97.7 F 02/05/19 07:00 Pulse 72 02/05/19 10:07 Resp 18 02/05/19 07:00 BP 153/85 02/05/19 07:00 Pulse Ox 96 02/05/19 02:45 Intake & Output 02/04/19 02/05/19 02/05/19 18:59 06:59 18:59 Intake Total 680 236 240 Output Total 1200 Balance 680 -964 240 Intake: Oral 680 236 240 Output: Urine 1200 Other: Voiding Method Toilet # Voids 3 2 - Exam GENERAL: The patient is alert and oriented x3, not in any acute distress. Well developed, well nourished. HEENT: Pupils are round and equally reacting to light. EOMI. No scleral icterus. No conjunctival pallor. Normocephalic, atraumatic. No pharyngeal erythema. No thyromegaly. CARDIOVASCULAR: S1 and S2 present. No murmurs, rubs, or gallops. -PULMONARY: Chest is clear to auscultation, no wheezing or crackles. . Bilate ral harsh breath sounds with coarse crepitation and scattered wheezing ABDOMEN: Soft, nontender, nondistended, normoactive bowel sounds. No palpable organomegaly. MUSCULOSKELETAL: No joint swelling or deformity. EXTREMITIES: No cyanosis, clubbing, or pedal edema. NEUROLOGICAL: Gross neurological examination did not reveal any focal deficits. SKIN: No rashes. - Labs CBC & Chem 7: 02/05/19 06:06 02/05/19 06:06 Labs: Abnormal Lab Results - Last 24 Hours (Table) 02/04/19 02/04/19 02/05/19 Range/Units 16:56 20:38 06:06 WBC 15.7 H (3.8-10.6) k/uL Neutrophils # 14.9 H (1.3-7.7) k/uL Lymphocytes # 0.4 L (1.0-4.8) k/uL Carbon Dioxide (22-30) mmol/L BUN (9-20) mg/dL Glucose (74-99) mg/dL POC Glucose (mg/dL) 101 H 189 H (75-99) mg/dL 02/05/19 02/05/19 02/05/19 Range/Units 06:06 07:10 12:15 WBC (3.8-10.6) k/uL Neutrophils # (1.3-7.7) k/uL Lymphocytes # (1.0-4.8) k/uL Carbon Dioxide 32 H (22-30) mmol/L BUN 25 H (9-20) mg/dL Glucose 116 H (74-99) mg/dL POC Glucose (mg/dL) 121 H 132 H (75-99) mg/dL Microbiology - Last 24 Hours (Table) 01/31/19 15:07 Fungal Culture - Preliminary Bronchial Washings - Right Gege albicans Assessment and Plan Assessment: Acute left lower lobe pulmonary embolism segmental and subsegmental Acute asthma exacerbation Rectal bleed. Acute Tracheobronchitis Shortness of breath secondary to above PFO with recent repair at [facility] Multiple CVA/TIAs Degenerative joint disease Plan: Patient was anticoagulation was changed to Eliquis Patient be continued on breathing treatments and IV steroids. Continue with pain management with IV morphine. Change to adult [place]. Follow-up consults recommendations. Further recommendations based on the clinical course. Pulmonary and cardiology and GI on board. Discussed the patient at bedside in detail.
[2019-02-05] MEDS: HYDROcodone/APAP 5-325MG 1 EACH TAB PO PRN ×2 (16:46→22:48)
[2019-02-05 17:21] LABS: Glucose,Whole Blood 118 mg/dL (75-99)
[2019-02-05] MEDS: guaiFENesin-DM 100-10MG/5ML 10 ML CUP PO PRN (18:09)
[2019-02-05 20:40] LABS: Glucose,Whole Blood 143 mg/dL (75-99)
[2019-02-05] MEDS: MONTELUKAST 10 MG TAB PO SCH (21:25)
[2019-02-05] MEDS: HYDROCORTISONE SUPPOSITORY 25 MG SUPP RECTAL SCH (21:26)
[2019-02-06] MEDS: MORPHINE SULFATE 4 MG/ML SYRINGE IV PRN ×5 (01:05→21:54)
[2019-02-06] MEDS: methylPREDNISolone SOD SUCCI 125 MG/2 ML VIAL IV SCH ×4 (01:05→17:40)
[2019-02-06] MEDS: guaiFENesin-DM 100-10MG/5ML 10 ML CUP PO PRN ×2 (03:42→18:27)
[2019-02-06] MEDS: HYDROcodone/APAP 5-325MG 1 EACH TAB PO PRN (05:29)
[2019-02-06 07:04] LABS: Basophils % (A) 0 %; Eosinophils % (A) 0 %; HCT 41.7 % (39.0-53.0); Lymphocytes # (A) 0.3 k/uL (1.0-4.8); Lymphocytes % (A) 2 %; MCH 31.8 pg (25.0-35.0); MCHC 33.6 g/dL (31.0-37.0); MCV 94.8 fL (80.0-100.0); Mean Platelet Volume 6.9; Monocytes # (A) 0.3 k/uL (0-1.0); Monocytes % (A) 2 %; Neutrophils # (A) 16.8 k/uL (1.3-7.7); Neutrophils % (A) 96 %; Platelet Count 356 k/uL (150-450); RDW 13.9 % (11.5-15.5); WBC 17.5 k/uL (3.8-10.6)
[2019-02-06 07:21] LABS: African American GFR (CKD) >90 (>60 ml/min/1.73 sqM); Anion Gap 4 mmol/L; Blood Urea Nitrogen 26 mg/dL (9-20); Calcium 8.8 mg/dL (8.4-10.2); Carbon Dioxide 32 mmol/L (22-30); Chloride 102 mmol/L (98-107); Glucose 110 mg/dL (74-99); Potassium 4.7 mmol/L (3.5-5.1); Sodium 138 mmol/L (137-145)
[2019-02-06 07:32] LABS: Glucose,Whole Blood 121 mg/dL (75-99)
[2019-02-06] MEDS: FORMOTEROL FUMARATE 20 MCG/2 ML NEBU INHALATION SCH ×2 (07:53→20:27)
[2019-02-06] MEDS: BUDESONIDE 1 MG/2 ML NEBU INHALATION SCH ×2 (07:53→20:27)
[2019-02-06] MEDS: IPRATROPIUM-ALBUTEROL 3 ML NEB INHALATION SCH ×4 (07:53→20:27)
[2019-02-06] MEDS: APIXABAN 5 MG TAB PO SCH ×2 (08:27→21:24)
[2019-02-06] MEDS: PANTOPRAZOLE 40 MG TABLET PO SCH (08:27)
[2019-02-06] MEDS: METOPROLOL TARTRATE 25 MG TAB PO SCH ×2 (08:27→21:24)
[2019-02-06] MEDS: DILTIAZEM ORAL 60 MG TAB PO SCH ×3 (08:27→21:23)
--- NOTE | 2019-02-06 09:53 | P.PN ---
Subjective Progress Note Date: 02/06/19 Principal diagnosis: Acute exacerbation of mild intermittent asthma, acute left lower lobe pulmonary embolism this is a 58-year-old white male with recent surgery about a week ago at [facility] for patent foramen ovale. His postoperative course was uneventful, patient was discharged home, and for the last few days he has been complaining of intermittent episodes of cough, wheezing, shortness of breath, and chest tightness. Recent chest x-ray done by his primary care physician showed no evidence of active disease. Patient was sent for a CT of the chest/CT angiogram which came back positive for segmental and subsegmental pulmonary embolism in the left lower lobe. Patient was admitted started on heparin, and I was asked to see him on consultation. Patient is familiar to our service, we have seen him in the past for mostly moderate persistent asthma, however over the last few years, his asthma has been basically stable. Patient used to see Dr. Dinero on a regular basis, and the last time he was seen in our office was over 2 years ago. At any rate patient was examined, and his CT in [place] of the chest was reviewed, indeed he does have a small tiny embolic disease involving the segmental and subsegmental artery of the left lower lobe, but on examination he clearly has findings of asthma exacerbation. Hence I have recommended that we continue heparin, I have also recommended that we start the patient on Solu-Medrol, updrafts, and on Symbicort.considering his cough is productive with yellow phlegm, I have also recommended Zithromax orally. On 01/28/2019 patient seen in follow-up on selective care unit, he is awake and alert, in no acute distress, room air pulse ox the 100%. No complaints of chest pain, but still lots of wheezing and congestion, and physical exam reveal diffuse rhonchi and wheezes bilaterally, no fever or chills, patient has been started on oral Eliquis, he is on IV steroids nebulized bronchodilators and antibiotics or his asthma exacerbation, did receive a dose of IV Lasix per cardiology today On 01/30/2019 patient seen in follow-up on selective care unit, he is awake and alert, though complaining of being significantly bronchospastic and congested, and states he does not feel much improvement in the way of dyspnea and congestion. Not able to bring up much sputum. Lung sounds reveal diffuse rhonchi and wheezes, patient has been treated with IV steroids, Symbicort, nebulized bronchodilators. Sputum culture showed no growth. Todays labs have been noted. On 01/31/2019 patient seen in follow-up on medical surgical floor. He states there has been lack of improvement with his breathing, chest congestion, and wheezing. Has been maximized on medical treatment, patient is coughing, not able to bring up much sputum, he is afebrile, room air pulse ox is 95%, he is tolerating ambulation, he is on oral anticoagulation in the form of Eliquis for pulmonary embolism. Lung sounds are positive for diffuse wheezing and rhonchi, he is been nothing by mouth since midnight for possibility of bronchoscopy with BAL On 02/01/2019 patient seen in follow-up on medical surgical floor. He states he felt better in the afternoon after the bronchoscopy with bronchial wash yesterday, however today he states he feels like he is getting more congested again, and he is not bringing up much sputum. Lung sounds reveal diffuse rhonchi and wheezes. Bronchial wash cultures are still pending, preliminary Gram stain shows moderate gram-positive bacilli, few gram-positive cocci and a few yeast, final culture is pending. Patient is on oral antibiotics in the form of Levaquin, he is on IV Solu-Medrol, Pulmicort and Perforomist, and DuoNeb. Has been no febrile episodes. On 02/02/2019 patient seen in follow-up on medical surgical floor. He is up ambulating, still congested and not bringing up much sputum, lung sounds sound slightly better today, hemodynamically patient is stable, no fever or chills, b ronchial wash viral culture showed evidence of rhinovirus, no other positive cultures. Patient continues on oral Levaquin, patient is on IV Solu-Medrol, Pulmicort, Perforomist, and nebulized bronchodilators, he is requesting to stop his Mucinex, he doesn't think that is helping. He is on oral intake with patient for his pulmonary embolism. Bronchial wash cytology was negative for cells diagnostic of malignant neoplasm. On 02/03/2019 patient is seen in follow-up on medical surgical floor. He is improving, still has some residual congestion, congestive cough, but clinically stable, no fever or chills, wound cultures were positive for rhinovirus only, no other growth, no fever or chills, patient has been ambulating around the unit, tolerating it well, has been maximized the medical treatment, he's been treated with empiric antibiotics, IV steroids, and nebulized bronchodilators On 02/04/2019 patient seen in follow-up on medical surgical floor. His breathing is stable, although he still sounds congested, with scattered rhonchi, clinically stable, no fever or chills. Room air pulse ox is 97%, yesterday's follow-up chest x-ray showed a tiny left pleural effusion with patchy left basilar infiltrate/atelectasis. Bronchial wash cultures have been negative thus far except for Gege albicans. Viral culture was positive for rhinovirus only. Patient developed some rectal bleeding, and GI service has been consulted, hemoglobin is 14.8, hemodynamically stable, anticipate discharge home today once evaluated by GI service. On 02/06/2019 patient seen in follow-up on medical surgical floor. Patient is quite congested, not able to bring up any sputum, lung sounds are diffusely rhonchorous, some wheezing. Patient states that he doesn't feel like he is getting better, actually becoming more congested, he is on room air, he is afebrile, bronchial wash cultures were positive only for Gege, viral cultures were positive for rhinovirus. He has been treated with antibiotics. He is on IV steroids, and malaise bronchodilators, he is maximized on medical treatment, he remains on Eliquis, he's been evaluated by GI service for the rectal bleeding, his hemoglobin is stable. Objective - Vital Signs Vital signs: Vital Signs Temp 97.5 F L 02/06/19 07:00 Pulse 69 02/06/19 08:12 Resp 17 02/06/19 07:00 BP 167/91 02/06/19 07:00 Pulse Ox 99 02/06/19 08:10 Intake & Output 02/05/19 02/06/19 02/06/19 18:59 06:59 18:59 Intake Total 240 Balance 240 Intake: Oral 240 Other: Voiding Method Toilet # Voids 1 - Exam GENERAL EXAM: Alert, active, 50-year-old white male, on room air, with a pulse ox of 95% comfortable in no apparent distress. HEAD: Normocephalic/atraumatic. EYES: Normal reaction of pupils, equal size. Conjunctiva pink, sclera white. NOSE: Clear with pink turbinates. THROAT: No erythema or exudates. NECK: No masses, no JVD, no thyroid enlargement, no adenopathy. CHEST: No chest wall deformity. Symmetrical expansion. LUNGS: Equal air entry with diffuse rhonchi congestive cough CVS: Regular rate and rhythm, normal S1 and S2, no gallops, no murmurs, no rubs ABDOMEN: Soft, nontender. No hepatosplenomegaly, normal bowel sounds, no guarding or rigidity. EXTREMITIES: No clubbing, no edema, no cyanosis, 2+ pulses and upper and lower extremities. MUSCULOSKELETAL: Muscle strength and tone normal. SPINE: No scoliosis or deformity SKIN: No rashes CENTRAL NERVOUS SYSTEM: Alert and oriented -3. No focal deficits, tone is normal in all 4 extremities. PSYCHIATRIC: Alert and oriented -3. Appropriate affect. Intact judgment and insight. - Labs CBC & Chem 7: 02/06/19 06:29 02/06/19 06:29 Labs: Abnormal Lab Results - Last 24 Hours (Table) 02/05/19 02/05/19 02/05/19 Range/Units 12:15 17:19 20:29 WBC (3.8-10.6) k/uL Neutrophils # (1.3-7.7) k/uL Lymphocytes # (1.0-4.8) k/uL Carbon Dioxide (22-30) mmol/L BUN (9-20) mg/dL Creatinine (0.66-1.25) mg/dL Glucose (74-99) mg/dL POC Glucose (mg/dL) 132 H 118 H 143 H (75-99) mg/dL 02/06/19 02/06/19 02/06/19 Range/Units 06:29 06:29 07:21 WBC 17.5 H (3.8-10.6) k/uL Neutrophils # 16.8 H (1.3-7.7) k/uL Lymphocytes # 0.3 L (1.0-4.8) k/uL Carbon Dioxide 32 H (22-30) mmol/L BUN 26 H (9-20) mg/dL Creatinine 0.61 L (0.66-1.25) mg/dL Glucose 110 H (74-99) mg/dL POC Glucose (mg/dL) 121 H (75-99) mg/dL Assessment and Plan Plan: Assessment: 1 acute exacerbation of severe persistent bronchial asthma, possibly related to possibility of aspiration during his surgical procedure for patent beltre ovale repair 2 acute. Tracheobronchitis 3 acute left lower lobe pulmonary embolism 4 history of degenerative joint disease, and history of arthroplasties and arthroscopies in the last few years. Plan: Patient has worsening congestion, he doesn't feel like he is getting any better, patient has already underwent bronchoscopy with BAL, with bronchoscopy cultures positive only for rhinovirus, has been maximized on medical treatment, has completed a course of antibiotics. Patient will be scheduled for bronchoscopy with BAL again tomorrow at 7:30 in the morning on 02/07/2019, nothing by mouth after midnight. Plan was started with the patient who is agreeable to proceed. I performed a history & physical examination of the patient and discussed their management with my nurse practitioner, Janet Red. I reviewed the nurse practitioner's note and agree with the documented findings and plan of care. Lung sounds are positive for diffuse wheezes throughout the lung martell. The findings and the impression was discussed with the patient. I attest to the documentation by the nurse practitioner. Time with Patient: Less than 30
[2019-02-06] MEDS: INSULIN ASPART (NovoLOG) 100 UNIT/ML VIAL SQ SCH ×4 (09:55→21:56)
[2019-02-06] MEDS: ASPIRIN 81 MG PO SCH (10:09)
[2019-02-06] MEDS ORDERED: diphenhydrAMINE 25 MG CAP PO PRN (10:13)
--- NOTE | 2019-02-06 10:47 | PN ---
PROGRESS NOTE Patient is a 58-year-old pleasant white male who was admitted to the hospital with chest pain, shortness of breath and subsequently diagnosed with pulmonary embolism. Also, he is being treated with IV steroids for exacerbation of asthma. He is status post PFO repair at [facility] 3 weeks ago. He developed postop atrial fibrillation and has been on Eliquis since then. He has been in the hospital for 8 days, but for the last 4 days has been having intermittent rectal bleeding with bright red blood with bowel movements associated with rectal pain. He was started on steroid suppositories and since then the bleeding as well as the pain has significantly improved. He did not have any bowel movements this morning. Continues to complain of chest tightness, shortness of breath. He is scheduled for bronchoscopy by Dr. Steward tomorrow. PHYSICAL EXAMINATION: He appears comfortable, in no apparent distress. VITAL SIGNS: Stable. Blood pressure is 112/82, pulse rate 66, temperature 98. HEENT examination unremarkable. Conjunctivae pink, sclerae anicteric. Oral cavity no lesions. NECK: No JVD or lymph node enlargement. CHEST: Clear to auscultation. HEART: Regular rate and rhythm. ABDOMEN: Soft. Bowel sounds are positive. No organomegaly. EXTREMITIES: No pedal edema. SKIN: No rashes. NEURO: He is alert and oriented x3. No focal deficits. LABS: WBC 17.5, hemoglobin 14, platelets are normal. Basic metabolic panel showed a BUN of 26, creatinine 0.61. IMPRESSION: 1. Rectal bleeding for the last 4 days with stable hemoglobin, associated rectal pain, possibly anal fissure, on steroid suppositories, gradually improving. Last colonoscopy was about 5 years ago and according to the patient it was normal. 2. Recent diagnosis of pulmonary embolism, on Eliquis. 3. Atrial fibrillation. 4. Exacerbation of asthma, on steroids. Dr. Steward following the patient closely. The patient continues to have persistent chest tightness and shortness of breath. He is scheduled for bronchoscopy tomorrow. 5. History of patent foramen ovale closure at [facility] 3 weeks ago. RECOMMENDATIONS: In regard to the rectal bleeding at this time, we will continue with conservative approach. He was advised to avoid straining and constipation. Continue with steroid suppositories and repeat CBC on a daily basis. For now, hemoglobin is stable and some plans are to perform an outpatient colonoscopy once his current problems resolve. Thank you for this consultation. DAJUAN / SARAH BETHN: [id number] /
[2019-02-06 11:56] LABS: Glucose,Whole Blood 201 mg/dL (75-99)
[2019-02-06] MEDS: HYDROcodone/APAP 7.5-325MG 1 EACH TAB PO PRN ×2 (13:01→22:52)
--- NOTE | 2019-02-06 14:53 | P.PN ---
Subjective Patient is a 58-year-old male with a known history of asthma, history of multiple TIAs/CVA due to PFO who recently had cardiac Patient with repair of PFO at [facility] about 2 weeks ago was sent to by his primary care physician for CT angiogram of the chest. Patient started having cough with some green sputum production since Thursday and is being followed by primary care physician. Patient was started on Levaquin which he did take 1 dose. Today patient has been having worsening shortness of breath and chest pain with deep breathing and was sent to ER for CT angiogram to rule out pulmonary embolism by his primary care physician. Patient otherwise denied any fever or chills. No nausea vomiting or abdominal pain. No diarrhea. CT angiogram of the chest showed segmental and subsegmental pulmonary embolism in the left lower lobe. Patient was started on heparin drip. 01/28/2019 Patient is still complaining of shortness of breath. Otherwise being continued on anticoagulation with Eliquis. Currently and antibodies the form of azithromycin. Continued on breathing treatments and steroids. Pulmonary and Cardiology on board. No fever no chills. No other acute overnight issues. 01/29/2019 Patient says that he still having shortness of breath but with slight improvement. Still having expiratory wheezing and scattered rhonchi. Currently on oxygen whereas of cannula high flow. Continued on IV steroids, breathing treatments and antibiotics and also on anticoagulation with Eliquis. No other acute overnight issues. 01/30/2019 Patient says that his breathing status is still the same. Still having diffuse rhonchi and wheezing. On oxygen therapy. No fever no chills. Currently being continued on IV steroids breathing treatments and antibiotics as well as anticoagulation for pulmonary embolism. Pulmonary is planning for bronchoscopy tomorrow. No complaints of chest pain. No leg swelling. No nausea vomiting or diarrhea. 02/04/2019 Patient is currently being treated for acute asthma exacerbation and acute left lower lobe pulmonary embolism. Patient is currently ambulating in the hallway. Saturating well on room air. Currently being continued on IV steroids and DuoNeb's. Completed antibiotic course. Patient is status post bronchoscopy. BAL fluid culture is negative except Gege albicans. Otherwise patient developed rectal bleeding and GI was consulted. Hemoglobin is stable otherwise. Patient has been febrile afebrile. anticipate discharge home once cleared by GI. 02/05/2019 Patient is awake. He still complaining of from significant chest pain that he needs more than 4. He thinks the Toradol is not helping him. He still have some dyspnea with coughing up blood. Also he has blood per rectum which is suspected from hemorrhoids over GI consulted to rule out other causes. His hemoglobin is stable at 14.3 ,however he still WBC is 15.7 K. Creatinine is normal at 0.6 and she was controlled. Patient has been followed by several consultants including pulmonary, cardiology teams. 02/06/2019 Patient still complaining of from dyspnea at rest and on exertion. His chest pain slightly improved but is not quite enough. [place] dose was increased to 7.5-325 mg and Benadryl was admitted as he states it helped him before. He still have some cough with bloody phlegm at times. Pulmonary team evaluated the patient in the planning for repeat bronchoscopy with BAL again tomorrow. GI team evaluated the patient and recommended conservative medical management and outpatient colonoscopy. Objective - Vital Signs Vital signs: Vital Signs Temp 97.5 F L 02/06/19 07:00 Pulse 69 02/06/19 08:12 Resp 17 02/06/19 08:00 BP 167/91 02/06/19 07:00 Pulse Ox 99 02/06/19 08:10 Intake & Output 02/05/19 02/06/19 02/06/19 18:59 06:59 18:59 Intake Total 240 Balance 240 Intake: Oral 240 Other: Voiding Method Toilet # Voids 1 1 - Exam GENERAL: The patient is alert and oriented x3, not in any acute distress. Well developed, well nourished. HEENT: Pupils are round and equally reacting to light. EOMI. No scleral icterus. No conjunctival pallor. Normocephalic, atraumatic. No pharyngeal erythema. No thyromegaly. CARDIOVASCULAR: S1 and S2 present. No murmurs, rubs, or gallops. -PULMONARY: Chest is clear to auscultation, no wheezing or crackles. . Bilateral harsh breath sounds with coarse crepitation and scattered wheezing ABDOMEN: Soft, nontender, nondistended, normoactive bowel sounds. No palpable organomegaly. MUSCULOSKELETAL: No joint swelling or deformity. EXTREMITIES: No cyanosis, clubbing, or pedal edema. NEUROLOGICAL: Gross neurological examination did not reveal any focal deficits. SKIN: No rashes. - Labs CBC & Chem 7: 02/06/19 06:29 02/06/19 06:29 Labs: Abnormal Lab Results - Last 24 Hours (Table) 02/05/19 02/05/19 02/06/19 Range/Units 17:19 20:29 06:29 WBC 17.5 H (3.8-10.6) k/uL Neutrophils # 16.8 H (1.3-7.7) k/uL Lymphocytes # 0.3 L (1.0-4.8) k/uL Carbon Dioxide (22-30) mmol/L BUN (9-20) mg/dL Creatinine (0.66-1.25) mg/dL Glucose (74-99) mg/dL POC Glucose (mg/dL) 118 H 143 H (75-99) mg/dL 02/06/19 02/06/19 02/06/19 Range/Units 06:29 07:21 11:44 WBC (3.8-10.6) k/uL Neutrophils # (1.3-7.7) k/uL Lymphocytes # (1.0-4.8) k/uL Carbon Dioxide 32 H (22-30) mmol/L BUN 26 H (9-20) mg/dL Creatinine 0.61 L (0.66-1.25) mg/dL Glucose 110 H (74-99) mg/dL POC Glucose (mg/dL) 121 H 201 H (75-99) mg/dL Assessment and Plan Assessment: Acute left lower lobe pulmonary embolism segmental and subsegmental Acute asthma exacerbation Rectal bleed. Acute Tracheobronchitis Shortness of breath secondary to above PFO with recent repair at [facility] Multiple CVA/TIAs Degenerative joint disease Plan: Patient was anticoagulation was changed to Eliquis Patient be continued on breathing treatments and IV steroids. Continue with pain management with [place], with her dose. Follow-up consults recommendations. Ulnar team are recommending bronchoscopy with BAL. GI team recommended outpatient colonoscopy Further recommendations based on the clinical course. Pulmonary and cardiology and GI on board. Discussed the patient at bedside in detail.
[2019-02-06 17:29] LABS: Glucose,Whole Blood 135 mg/dL (75-99)
[2019-02-06 21:11] LABS: Glucose,Whole Blood 134 mg/dL (75-99)
[2019-02-06] MEDS: MONTELUKAST 10 MG TAB PO SCH (21:23)
[2019-02-06] MEDS: HYDROCORTISONE SUPPOSITORY 25 MG SUPP RECTAL SCH (21:24)
[2019-02-07] MEDS: methylPREDNISolone SOD SUCCI 125 MG/2 ML VIAL IV SCH ×4 (00:57→18:03)
[2019-02-07] MEDS: MORPHINE SULFATE 4 MG/ML SYRINGE IV PRN ×5 (02:26→20:33)
[2019-02-07] MEDS: HYDROcodone/APAP 7.5-325MG 1 EACH TAB PO PRN ×3 (05:23→18:03)
[2019-02-07] MEDS: IPRATROPIUM-ALBUTEROL 3 ML NEB INHALATION SCH ×4 (05:53→18:56)
[2019-02-07] MEDS: FORMOTEROL FUMARATE 20 MCG/2 ML NEBU INHALATION SCH ×2 (05:53→18:56)
[2019-02-07] MEDS: BUDESONIDE 1 MG/2 ML NEBU INHALATION SCH ×2 (05:53→18:56)
[2019-02-07] MEDS ORDERED: FUROSEMIDE 10 MG/ML 2 ML VIAL IV ONE (07:03)
[2019-02-07 07:22] LABS: Glucose,Whole Blood 133 mg/dL (75-99)
[2019-02-07] MEDS ORDERED: KETAMINE 10 MG/ML 20 ML VIAL ONE (07:27)
[2019-02-07] MEDS ORDERED: LIDOCAINE 1% INJ 10MG/ML (20 ML MDV) ONE (07:27)
[2019-02-07] MEDS ORDERED: MIDAZOLAM 2 MG/2 ML VIAL ONE (07:27)
[2019-02-07] MEDS ORDERED: PROPOFOL 10 MG/ML 20 ML VIAL IV ONE (07:27)
[2019-02-07] MEDS ORDERED: SODIUM CHLORIDE 0.9% 1,000 ML IV ONE (07:28)
[2019-02-07] MEDS: INSULIN ASPART (NovoLOG) 100 UNIT/ML VIAL SQ SCH ×4 (08:11→21:34)
--- NOTE | 2019-02-07 09:26 | PN ---
PROGRESS NOTE DATE OF SERVICE: 02/07/2019 This is a 58-year-old male who was admitted way back on January 28. The patient has really been slow to respond. Today, we did a repeat bronchoscopy on him. The findings are similar to the first bronchoscopy. He had diffuse airway edema and erythema with hyperemia. His mucosa was friable. There were some secretions noted in the lower respiratory tract. They were suctioned without difficulty. There was no dominant mass or tumor. He did undergo a BAL again in the right middle lobe. The previous BAL showed it to be positive for rhinovirus by PCR. The patient tolerated the procedure well. In addition, the patient does have a history of, as I mentioned, chronic bronchial asthma. He has seen Dr. Dinero in the past but not recently. He is also status post repair of a patent foramen ovale. In addition, he has a history of acute left lower lobe pulmonary embolism, DJD, and GI bleed. Current vital signs are stable. Temperature 98.3, heart rate 60, respiratory rate 17, blood pressure 151/88, mean 109, room air saturation 93%. Appears in no acute distress. No audible wheezing, use of accessory muscles or conversational dyspnea. HEENT examination is grossly unremarkable. Mucous membranes are moist. Neck is supple. Full range of motion. No adenopathy, thyromegaly or neck vein distention. CARDIOVASCULAR examination reveals regular rhythm and rate. Heart rate about 60 beats per minute. S1, S2 normal. LUNGS: Reveal coarse inspiratory and expiratory rhonchi. To my ear, his breath sounds are improved. There is prolongation on forced maneuver. Adventitious lung sounds are more prominent on forced maneuver. He does cough on forced maneuver as well. ABDOMEN is soft. Bowel sounds are heard. EXTREMITIES are intact. No cyanosis, clubbing, or edema. SKIN: Without rash. NEUROLOGIC examination is brief but nonfocal. LAB DATA: Reviewed. Nothing new to report. Microbiology is reviewed. The previous bronch wash showed evidence of Gege. No recent x-ray was done. Of note was the fact that there was some Gege in his hypopharynx, primarily in the piriform sinuses, left greater than right. ASSESSMENT: 1. Acute asthma exacerbation, likely triggered by rhinovirus infection, with slow recovery and improvement despite maximal medical therapy and now bronchoscopy x2. 2. Status post second bronchoscopy, February 07, 2019. 3. Gastrointestinal bleed. 4. Tracheobronchitis. 5. Acute left lower lobe pulmonary embolism. 6. Degenerative joint disease. 7. Recent surgical repair of a patent foramen ovale. PLAN: The patient's bronch wash on this occasion was again sent for everything. Additional recommendations and suggestions forthcoming. A repeat chest x-ray was ordered. Prognosis is guarded. He is receiving maximal medical therapy. Additional recommendations and suggestions are forthcoming. He will see Dr. Dinero tomorrow in the hospital. MMODL / IJN: [id number] /
[2019-02-07] MEDS: METOPROLOL TARTRATE 25 MG TAB PO SCH ×2 (09:29→20:34)
[2019-02-07] MEDS: ASPIRIN 81 MG PO SCH (09:30)
[2019-02-07] MEDS: DILTIAZEM ORAL 60 MG TAB PO SCH ×2 (09:30→16:07)
[2019-02-07] MEDS: PANTOPRAZOLE 40 MG TABLET PO SCH (09:30)
[2019-02-07] MEDS: APIXABAN 5 MG TAB PO SCH ×2 (09:30→20:32)
[2019-02-07 11:52] LABS: Glucose,Whole Blood 159 mg/dL (75-99)
--- NOTE | 2019-02-07 12:29 | CONS ---
CONSULTATION Patient is a 58-year-old pleasant white male admitted to the hospital with shortness of breath, chest pain for the last 10 days duration. He was diagnosed with pulmonary embolism on Eliquis. The patient is status post PFO repair 3 weeks ago at [facility] followed by postop atrial fibrillation and has been on anticoagulation since then. He still complains of chest pain, shortness of breath. He underwent bronchoscopy today by Dr. Steward. He is being followed by GI because of ongoing intermittent rectal bleeding. Yesterday, he did not have any rectal bleeding. He has been receiving rectal steroid suppositories. Rectal pain has resolved. This morning had no bowel movements. He continues to remain on Eliquis and Plavix. PHYSICAL EXAMINATION: Appears comfortable. No apparent distress. Vital signs are stable. Blood pressure is 151/88, pulse 59, temperature 98.3. HEENT: Examination unremarkable. Conjunctivae pink. Sclerae anicteric. Oral cavity, no lesions. NECK: No JVD or lymph node enlargement. CHEST: Clear to auscultation. HEART: Regular rate and rhythm. ABDOMEN: Soft. Bowel sounds are positive. No organomegaly. EXTREMITIES: No pedal edema. SKIN: No rashes. NEUROLOGIC: Alert and oriented x3. No focal deficits. LABS: No labs available from today. IMPRESSION: 1. Pulmonary embolism on Eliquis. 2. Exacerbation of asthma. 3. Intermittent rectal bleeding which appears to be gradually subsiding, presently on steroid suppositories and no further bleeding as of yesterday. Hemoglobin remains stable. No CBC from today available. RECOMMENDATIONS: Continue with anticoagulation and IV steroids as well as broad-spectrum antibiotics. At this time no plans for any endoscopic intervention. We will continue to follow him closely. Thank you for this consultation. MMODL / IJN: [id number] /
--- NOTE | 2019-02-07 12:45 | P.PN ---
Subjective Patient is a 58-year-old male with a known history of asthma, history of multiple TIAs/CVA due to PFO who recently had cardiac Patient with repair of PFO at [facility] about 2 weeks ago was sent to by his primary care physician for CT angiogram of the chest. Patient started having cough with some green sputum production since Thursday and is being followed by primary care physician. Patient was started on Levaquin which he did take 1 dose. Today patient has been having worsening shortness of breath and chest pain with deep breathing and was sent to ER for CT angiogram to rule out pulmonary embolism by his primary care physician. Patient otherwise denied any fever or chills. No nausea vomiting or abdominal pain. No diarrhea. CT angiogram of the chest showed segmental and subsegmental pulmonary embolism in the left lower lobe. Patient was started on heparin drip. 01/28/2019 Patient is still complaining of shortness of breath. Otherwise being continued on anticoagulation with Eliquis. Currently and antibodies the form of azithromycin. Continued on breathing treatments and steroids. Pulmonary and Cardiology on board. No fever no chills. No other acute overnight issues. 01/29/2019 Patient says that he still having shortness of breath but with slight improvement. Still having expiratory wheezing and scattered rhonchi. Currently on oxygen whereas of cannula high flow. Continued on IV steroids, breathing treatments and antibiotics and also on anticoagulation with Eliquis. No other acute overnight issues. 01/30/2019 Patient says that his breathing status is still the same. Still having diffuse rhonchi and wheezing. On oxygen therapy. No fever no chills. Currently being continued on IV steroids breathing treatments and antibiotics as well as anticoagulation for pulmonary embolism. Pulmonary is planning for bronchoscopy tomorrow. No complaints of chest pain. No leg swelling. No nausea vomiting or diarrhea. 02/04/2019 Patient is currently being treated for acute asthma exacerbation and acute left lower lobe pulmonary embolism. Patient is currently ambulating in the hallway. Saturating well on room air. Currently being continued on IV steroids and DuoNeb's. Completed antibiotic course. Patient is status post bronchoscopy. BAL fluid culture is negative except Gege albicans. Otherwise patient developed rectal bleeding and GI was consulted. Hemoglobin is stable otherwise. Patient has been febrile afebrile. anticipate discharge home once cleared by GI. 02/05/2019 Patient is awake. He still complaining of from significant chest pain that he needs more than 4. He thinks the Toradol is not helping him. He still have some dyspnea with coughing up blood. Also he has blood per rectum which is suspected from hemorrhoids over GI consulted to rule out other causes. His hemoglobin is stable at 14.3 ,however he still WBC is 15.7 K. Creatinine is normal at 0.6 and she was controlled. Patient has been followed by several consultants including pulmonary, cardiology teams. 02/06/2019 Patient still complaining of from dyspnea at rest and on exertion. His chest pain slightly improved but is not quite enough. Narco dose was increased to 7.5-325 mg and Benadryl was admitted as he states it helped him before. He still have some cough with bloody phlegm at times. Pulmonary team evaluated the patient in the planning for repeat bronchoscopy with BAL again tomorrow. GI team evaluated the patient and recommended conservative medical management and outpatient colonoscopy. 02/07/2019 Patient is awake, he still have some breathing difficulty. He had bronchoscopy today by pulmonary team. He is status post bronchial wash and culture and tests were sent by pulmonary team and they're pending now. Most likely patient has acute asthma exacerbation related to rhino varus infection Objective - Vital Signs Vital signs: Vital Signs Temp 98.3 F 02/07/19 07:00 Pulse 56 L 02/07/19 11:33 Resp 17 02/07/19 07:00 BP 151/88 02/07/19 07:00 Pulse Ox 93 L 02/07/19 07:00 Intake & Output 02/06/19 02/07/19 02/07/19 18:59 06:59 18:59 Intake Total 100 Balance 100 Intake: IV 100 Other: Voiding Method Toilet # Voids 1 - Exam GENERAL: The patient is alert and oriented x3, not in any acute distress. Well developed, well nourished. HEENT: Pupils are round and equally reacting to light. EOMI. No scleral icterus. No conjunctival pallor. Normocephalic, atraumatic. No pharyngeal erythema. No thyromegaly. CARDIOVASCULAR: S1 and S2 present. No murmurs, rubs, or gallops. -PULMONARY: Chest is clear to auscultation, no wheezing or crackles. . Bilateral harsh breath sounds with coarse crepitation and scattered wheezing ABDOMEN: Soft, nontender, nondistended, normoactive bowel sounds. No palpable organomegaly. MUSCULOSKELETAL: No joint swelling or deformity. EXTREMITIES: No cyanosis, clubbing, or pedal edema. NEUROLOGICAL: Gross neurological examination did not reveal any focal deficits. SKIN: No rashes. - Labs CBC & Chem 7: 02/06/19 06:29 02/06/19 06:29 Labs: Abnormal Lab Results - Last 24 Hours (Table) 02/06/19 02/06/19 02/07/19 Range/Units 17:18 20:48 07:11 POC Glucose (mg/dL) 135 H 134 H 133 H (75-99) mg/dL 02/07/19 Range/Units 11:41 POC Glucose (mg/dL) 159 H (75-99) mg/dL Assessment and Plan Assessment: Acute left lower lobe pulmonary embolism segmental and subsegmental Acute asthma exacerbation, related to rhino varus infection. Status post bronchoscopy x2 Rectal bleed. Acute Tracheobronchitis Shortness of breath secondary to above PFO with recent repair at [facility] Multiple CVA/TIAs Degenerative joint disease Plan: Patient was anticoagulation was changed to Eliquis Patient be continued on breathing treatments and IV steroids. Continue with pain management with [place], . Follow-up Bronchial wash results. Follow-up consults recommendations. Pulmonary team are following. GI team recommended outpatient colonoscopy Further recommendations based on the clinical course. Pulmonary and cardiology and GI on board. Discussed the patient at bedside in detail.
[2019-02-07 16:48] LABS: Glucose,Whole Blood 145 mg/dL (75-99)
[2019-02-07] MEDS: FLUCONAZOLE 100 MG TAB PO SCH (18:03)
[2019-02-07] MEDS: MONTELUKAST 10 MG TAB PO SCH (20:32)
[2019-02-07] MEDS: HYDROCORTISONE SUPPOSITORY 25 MG SUPP RECTAL SCH (20:33)
[2019-02-07 21:01] LABS: Glucose,Whole Blood 163 mg/dL (75-99)
[2019-02-08] MEDS: methylPREDNISolone SOD SUCCI 125 MG/2 ML VIAL IV SCH ×3 (00:30→13:01)
[2019-02-08] MEDS: DILTIAZEM ORAL 60 MG TAB PO SCH ×2 (00:31→09:32)
[2019-02-08] MEDS: MORPHINE SULFATE 4 MG/ML SYRINGE IV PRN ×2 (00:31→04:39)
[2019-02-08] MEDS: guaiFENesin-DM 100-10MG/5ML 10 ML CUP PO PRN ×2 (00:35→06:07)
--- NOTE | 2019-02-08 01:20 | OP ---
OPERATIVE REPORT PROCEDURE: Bronchoscopy, airway examination, therapeutic lavage, BAL right middle lobe. PREOP DIAGNOSIS: Severe asthma, retained secretions, acute bronchitis with bronchospasm. POSTOP DIAGNOSIS: Severe asthma, retained secretions, acute bronchitis with bronchospasm. VAULT INSTALLER provided unconscious sedation and general anesthesia. She was accompanied by Dr. Zamora. There was informed consent and universal timeout. The patient's procedure took place in room #1. SENIOR WEB ARCHITECT: Dr. Steward. After the patient was adequately sedated and being fully monitored, the bronchoscope was inserted through the right nostril. It passed through the right nasopharynx into the oropharynx. The hypopharynx was identified and topicalized. There were thick white plaques noted in the hypopharynx, probably consistent with Gege. These will be treated. The hypopharyngeal structures including anterior commissure, true cords, false cords, arytenoids, piriform sinuses, right and left vallecula and epiglottis all appeared normal. After topicalization, the bronchoscope was pushed through the glottic opening into the trachea. Trachea appeared relatively normal. Tracheal nayeli was sharp. The right and left mainstem were topicalized. The right upper lobe and its 3 segments, right middle lobe and its 2 segments, right lower lobe and its 5 segments, left upper lobe proper and its 2 segments and lingula and its 2 segments and the left lower lobe and its 4 segments had similar findings throughout. There was diffuse erythema and hyperemia in the airways. There was some mucosal friability. There was some bleeding when the mucosa was touched with the bronchoscope. There was no dominant mass or tumor. The airways were probably less inflamed than they were when I did the last procedure. There was some secretions noted throughout the airways. They were suctioned without difficulty. They were white mostly. There was no dominant mass. Next, the bronchoscope was wedged into the right middle lobe. The BAL took place. The patient tolerated the procedure well. The bronchoscope was withdrawn. There was no immediate complications. MMODL / IJN: [id number] /
[2019-02-08] MEDS: HYDROcodone/APAP 7.5-325MG 1 EACH TAB PO PRN ×2 (02:01→09:38)
[2019-02-08 07:14] LABS: Glucose,Whole Blood 119 mg/dL (75-99)
[2019-02-08] MEDS: INSULIN ASPART (NovoLOG) 100 UNIT/ML VIAL SQ SCH ×2 (07:30→12:30)
[2019-02-08] MEDS: BUDESONIDE 1 MG/2 ML NEBU INHALATION SCH (08:31)
[2019-02-08] MEDS: IPRATROPIUM-ALBUTEROL 3 ML NEB INHALATION SCH ×2 (08:31→12:03)
[2019-02-08] MEDS: FORMOTEROL FUMARATE 20 MCG/2 ML NEBU INHALATION SCH (08:31)
[2019-02-08] MEDS: PANTOPRAZOLE 40 MG TABLET PO SCH (08:46)
[2019-02-08] MEDS: FLUCONAZOLE 100 MG TAB PO SCH (08:46)
[2019-02-08] MEDS: APIXABAN 5 MG TAB PO SCH (08:46)
[2019-02-08] MEDS: ASPIRIN 81 MG PO SCH (08:46)
[2019-02-08] MEDS: METOPROLOL TARTRATE 25 MG TAB PO SCH (08:46)
[2019-02-08 09:14] VITALS: BP 152/88; PULSE 53; RESP 12; TEMP 98.2
[2019-02-08 12:06] LABS: Glucose,Whole Blood 128 mg/dL (75-99)
--- NOTE | 2019-02-08 12:56 | P.PN ---
Subjective Progress Note Date: 02/08/19 On today's evaluation of 9 08/13/2018 I'm seeing this patient for a follow-up. Feeling better. Less short of breath. No significant chest pain. He remains somewhat bronchospastic and wheezy. Review the CAT scan of the chest. The patient has compressing bilateral pulmonary embolism more so on the left. The patient is currently on long-term anticoagulation. The patient on Eliquis. Noted the patient underwent a recent closure of a PFO for a paradoxic embolism to the brain and the patient was already taking Plavix on outpatient basis. Doppler of the lower extremity was negative. He is also asthmatic. He has had previous exacerbations. He had undergone 2 bronchoscopies during the current hospitalization showing Gege without any evidence of an alternative microbial growth. No fever. No chills. No hoarseness. He is on room air oxygen. He is ambulating. Objective - Vital Signs Vital signs: Vital Signs Temp 98.2 F 02/08/19 07:00 Pulse 53 L 02/08/19 07:00 Resp 12 02/08/19 07:00 BP 152/88 02/08/19 07:00 Pulse Ox 96 02/08/19 07:00 Intake & Output 02/07/19 02/08/19 02/08/19 18:59 06:59 18:59 Intake Total 322 240 Balance 322 240 Intake: IV 100 Oral 222 240 Other: Voiding Method Toilet # Voids 1 - Exam The patient appeared well nourished and normally developed. Vital signs as documented. Head exam is unremarkable. No scleral icterus or corneal arcus noted. Neck is without jugular venous distension, thyromegaly, or carotid bruits. Carotid upstrokes are brisk bilaterally. Lungs nourished bilaterally along with scattered external he wheezes heard throughout the lung martell bilaterally especially in the lung bases. Cardiac exam reveals the PMI to be normally sized and situated. Rhythm is regular. First and second heart sounds normal. No murmurs, rubs or gallops. Abdominal exam reveals normal bowel sounds, no masses, no organomegaly and no aortic enlargement. Extremities are nonedematous and both femoral and pedal pulses are normal.Examination of the skin revealed no evidence of significant rashes, suspicious appearing nevi or other concerning lesions. 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 He is going to go home on a prednisone burst taper. He is going to be on long-term and to coagulation with Eliquis. He is going to contact [facility] to decide if Plavix is still needed. He is going to be restarted on Advair Diskus 500/50 one puff twice a day and he was seen back in the office in a week's time in follow-up. I also discussed the case with his . Complete a one-week course of Diflucan.
[2019-02-08 13:42] LABS: Appearance,BF Hazy; Color,BF Pink; Nucleated Cells, Body Fluid 410 /uL; RBC, Body Fluid 4030 /uL
[2019-02-08 13:47] LABS: Mononuclear WBC,Body Fluid 2 %; Polynuclear WBC,Body Fluid 98 %; Total Cells Counted,Body Fluid 100
--- NOTE | 2019-02-08 13:48 | P.DS ---
Providers Date of admission: 01/28/19 15:57 Attending physician: Lopez Branch Consults: 01/27/19 13:12 Consult Physician Urgent Consulting Provider: Denis Madera Consult Reason/Comments: PE Do you want consulting provider notified?: Yes 01/27/19 13:50 Consult Physician Urgent Consulting Provider: Sebastian Grubbs Consult Reason/Comments: a fib Do you want consulting provider notified?: Yes 02/03/19 12:07 Consult Physician Urgent Consulting Provider: Isabel Grubbs Consult Reason/Comments: rectal bleeding Do you want consulting provider notified?: Yes Primary care physician: Lopez Branch Hospital Course: Acute left lower lobe pulmonary embolism segmental and subsegmental Acute asthma exacerbation, related to rhino varus infection. Status post bronchoscopy x2 Rectal bleed. Acute Tracheobronchitis Atrial fibrillation, mostly related to his recent PFO closure. Currently patient is on anticoagulation and his rate is controlled Gege albicans and a bronchoalveolar level checked, mostly colonizer PFO with recent repair at [facility] Multiple CVA/TIAs Degenerative joint disease Hospital course: Patient is a 58-year-old male with a known history of asthma, history of mu ltiple TIAs/CVA due to PFO who recently had cardiac Patient with repair of PFO at [facility] about 2 weeks prior to admission, was sent to by his primary care physician for CT angiogram of the chest. Patient was found to have acute pulmonary embolism and he was started on Eliquis, is also was complaining of from dyspnea with coughing body flame at times. He is been evaluated by pulmonary team and undergone underwent 2 bronchoscopies with bronchoalveolar lavage showing Gege only for colonization. Many study has been sent for the second bronchoscopy including culture results which are still pending. Patient was instructed to follow up with pulmonary team as an & sitting and he agrees. Patient has been treated with steroids, reading treatment, and he showed interval improvement. Patient is on room air and he is ambulating. His been evaluated by pulmonary team who cleared him for discharge and follow-up as an outpatient. Cardiology also evaluated patient and recommended to continue with current medication. Is currently on Cardizem and metoprolol Also patient course was completed by blood per rectum, his been evaluated by GI team recommended outpatient workup. Also patient is going to follow up with [facility] to see if he is going to continue with the Plavix as per pulmonary recommendation. Patient is eager to go home today and he denies abdominal pain. No nausea vomiting. He is tolerating diet well. No change in urine or bowel habits. He is walking the hallways with no difficulties Problems and management plan were discussed with the patient and he verbalized understanding and acceptance Patient was found stable and can be discharged home however he needs follow-up as an outpatient. Patient was instructed to follow up with his PCP and senior national account manager in 1 week and he agrees. Patient agrees with the appointments and time is for the appointments made for him and he says he will follow-up. Gen: patient is a AAOx3, no distress CVS: S1-S2, RRR, no murmur Lungs: B/L CTA, no wheezing. He has some harsh bronchial breath sounds bilaterally, improved compared to yesterday. Abdomen: soft, no distention, no tenderness, positive bowel sounds Extremity: no leg edema or induration Time spent more than 35 minutes Plan - Discharge Summary Discharge Rx Participant: No New Discharge Prescriptions: New Fluticasone/Salmeterol [Advair 500-50 Diskus] 1 inhalation PO BID 30 Days #1 diskus predniSONE 10 mg PO DAILY 16 Days #40 tab Fluconazole [Diflucan] 100 mg PO BID 7 Days #14 tab No Action Albuterol Inhaler [Ventolin Inhaler] 1 puff INHALATION RT-DAILY PRN PRN Reason: Shortness Of Breath Or Wheezing Dextroamphetamine/Amphetamine [Adderall Xr] 20 mg PO BID HYDROcodone/APAP 10-325MG [Cascilla 10-325] 1 tab PO Q4HR PRN #90 tab PRN Reason: Pain Aspirin 325 mg PO DAILY Atorvastatin Calcium [Lipitor] 40 mg PO DAILY CHLORPHEN-HYDROcod 8-10mg/5ml [Tussionex] 5 ml PO Q12H PRN PRN Reason: Cough Clopidogrel Bisulfate [Plavix] 75 mg PO DAILY Discharge Medication List Albuterol Inhaler [Ventolin Inhaler] 1 puff INHALATION RT-DAILY PRN 01/23/15 [History] Dextroamphetamine/Amphetamine [Adderall Xr] 20 mg PO BID 09/24/17 [History] HYDROcodone/APAP 10-325MG [Cascilla 10-325] 1 tab PO Q4HR PRN #90 tab 09/25/17 [Rx] Aspirin 325 mg PO DAILY 01/27/19 [History] Atorvastatin Calcium [Lipitor] 40 mg PO DAILY 01/27/19 [History] CHLORPHEN-HYDROcod 8-10mg/5ml [Tussionex] 5 ml PO Q12H PRN 01/27/19 [History] Clopidogrel Bisulfate [Plavix] 75 mg PO DAILY 01/27/19 [History] Fluconazole [Diflucan] 100 mg PO BID 7 Days #14 tab 02/08/19 [Rx] Fluticasone/Salmeterol [Advair 500-50 Diskus] 1 inhalation PO BID 30 Days #1 diskus 02/08/19 [Rx] predniSONE 10 mg PO DAILY 16 Days #40 tab 02/08/19 [Rx] Follow up Appointment(s)/Referral(s): Lopez Branch MD [Primary Care Provider] - 1-2 days Tucker Costa MD [STAFF PHYSICIAN] - 2 Weeks (Skin Drier) Isabel Grubbs MD [STAFF PHYSICIAN] - 2 Weeks Stephanie Dinero MD [STAFF PHYSICIAN] - 1 Week Activity/Diet/Wound Care/Special Instructions: Dior covered $0 copay - script filled and ready for picker box operator/delivery at [facility]
== END 2019-02-08 16:06 | disposition home or self-care (01) | DRG 167 ==
LOC: EC 12:42 → 3SCARD 13:12 → OBSVTOIN 01-28 15:57 → 4SSUR 01-30 23:09
PROVIDERS: ADMIT Family Medicine; ATTEND Family Medicine
PROC: 0B9G8ZZ Drainage of Left Upper Lung Lobe, Via Natural or Artificial Opening Endoscopic (ICD-10-PCS; 2019-01-31)
PROC: 0B9D8ZZ Drainage of Right Middle Lung Lobe, Via Natural or Artificial Opening Endoscopic (ICD-10-PCS; 2019-01-31)
PROC: 0B9H8ZZ Drainage of Lung Lingula, Via Natural or Artificial Opening Endoscopic (ICD-10-PCS; 2019-01-31)
PROC: 0B9J8ZZ Drainage of Left Lower Lung Lobe, Via Natural or Artificial Opening Endoscopic (ICD-10-PCS; 2019-01-31)
PROC: 0B9D8ZX Drainage of Right Middle Lung Lobe, Via Natural or Artificial Opening Endoscopic, Diagnostic (ICD-10-PCS; 2019-01-31)
PROC: 0BD58ZX Extraction of Right Middle Lobe Bronchus, Via Natural or Artificial Opening Endoscopic, Diagnostic (ICD-10-PCS; 2019-01-31)
PROC: 0B968ZZ Drainage of Right Lower Lobe Bronchus, Via Natural or Artificial Opening Endoscopic (ICD-10-PCS; 2019-01-31)
PROC: 0B9C8ZZ Drainage of Right Upper Lung Lobe, Via Natural or Artificial Opening Endoscopic (ICD-10-PCS; principal; 2019-01-31 09:05)
PROC: 0B9J8ZZ Drainage of Left Lower Lung Lobe, Via Natural or Artificial Opening Endoscopic (ICD-10-PCS; 2019-02-07)
PROC: 0B9C8ZZ Drainage of Right Upper Lung Lobe, Via Natural or Artificial Opening Endoscopic (ICD-10-PCS; 2019-02-07)
PROC: 0B9G8ZZ Drainage of Left Upper Lung Lobe, Via Natural or Artificial Opening Endoscopic (ICD-10-PCS; 2019-02-07)
PROC: 0B9D8ZZ Drainage of Right Middle Lung Lobe, Via Natural or Artificial Opening Endoscopic (ICD-10-PCS; 2019-02-07)
PROC: 0B9H8ZZ Drainage of Lung Lingula, Via Natural or Artificial Opening Endoscopic (ICD-10-PCS; 2019-02-07)
PROC: 0B9F8ZZ Drainage of Right Lower Lung Lobe, Via Natural or Artificial Opening Endoscopic (ICD-10-PCS; 2019-02-07)
PROC: 0B9D8ZX Drainage of Right Middle Lung Lobe, Via Natural or Artificial Opening Endoscopic, Diagnostic (ICD-10-PCS; 2019-02-07)
DX: I26.99 Other pulmonary embolism without acute cor pulmonale (principal); I42.2 Other hypertrophic cardiomyopathy; J45.41 Moderate persistent asthma with (acute) exacerbation; I48.0 Paroxysmal atrial fibrillation; K57.30 Diverticulosis of large intestine without perforation or abscess without bleeding; J20.9 Acute bronchitis, unspecified; B34.8 Other viral infections of unspecified site; K64.8 Other hemorrhoids; E78.5 Hyperlipidemia, unspecified; M19.90 Unspecified osteoarthritis, unspecified site; Z79.82 Long term (current) use of aspirin; Z79.02 Long term (current) use of antithrombotics/antiplatelets; Z79.899 Other long term (current) drug therapy; Z87.01 Personal history of pneumonia (recurrent); Z86.19 Personal history of other infectious and parasitic diseases; Z86.73 Personal history of transient ischemic attack (TIA), and cerebral infarction without residual deficits; Z86.59 Personal history of other mental and behavioral disorders; Z87.74 Personal history of (corrected) congenital malformations of heart and circulatory system; Z88.0 Allergy status to penicillin; Z80.7 Family history of other malignant neoplasms of lymphoid, hematopoietic and related tissues; Z80.3 Family history of malignant neoplasm of breast; Z82.5 Family history of asthma and other chronic lower respiratory diseases
CPT/HCPCS: 31624; 71046; 71275; 80048; 80053; 84443; 84484; 85025; 85610; 85730; 87070; 87102; 87116; 87205; 87206; 87252; 87496; 87498; 87502; 87529; 87634; 87798; 88108; 88305; 89050; 93005; 93306; 93970; 94640; 94760; 96374; 96375; 99285

== ENCOUNTER 2020-06-23 13:01 | Emergency (ER) | payer BC ==
[2020-06-23 13:19] VITALS: BP 105/77; PULSE 70; RESP 20; TEMP 98.2
[2020-06-23] MEDS ORDERED: Acetaminophen-Codeine 300-30mg TAB PO STA (13:46)
[2020-06-23] MEDS ORDERED: LIDOCAINE 1% INJ 10MG/ML (20 ML MDV) SQ ONE (13:46)
--- NOTE | 2020-06-23 14:33 | CT ---
EXAMINATION TYPE: CT brain wade almendarez con DATE OF EXAM: 06/23/2020 COMPARISON: 06/11/2017. HISTORY: Fall CT DLP: 1489.8 mGycm Automated exposure control for dose reduction was used. TECHNIQUE: CT scan of the head and cervical spine are performed without contrast. FINDINGS: There is no acute intracranial hemorrhage, mass effect, or midline shift identified. The ventricles and sulci are within normal limits in size. The globes are intact and the visualized sin uses are clear. Cervical spine is visualized in its entirety from C1 through upper thoracic levels and demonstrates s atisfactory alignment without evidence of acute fracture or dislocation. Prevertebral soft tissue ap pears within normal limits. The C1-C2 articulation is unremarkable. There is mild C5-C6 spondylosis . IMPRESSION: 1. There is no acute fracture or dislocation evident in the cervical spine. 2. No acute intracranial hemorrhage, mass effect, or midline shift is seen.
--- NOTE | 2020-06-23 14:35 | XR ---
RESULT: HISTORY: finger injury TECHNIQUE: 3 views of the right fingers centered on the index finger were obtained. COMPARISON: None. FINDINGS: There is complete dorsal dislocation of the index finger DIP joint. There is small volar avulsion fra cture of the index finger middle phalanx at the base. IMPRESSION: Dorsal dislocation of the index finger DIP joint. Volar avulsion fracture of the index finger middle phalanx.
--- NOTE | 2020-06-23 14:40 | XR ---
RESULT: HISTORY: confirm after relocation TECHNIQUE: 3 views of the right index finger were obtained. COMPARISON: Earlier same day radiographs. FINDINGS: There is interval reduction of index finger DIP joint dislocation with anatomic alignment achieved. T here is subtle punctate ossific density at the volar aspect of the index finger distal phalangeal bas e. There is unchanged volar avulsion fracture of the index finger middle phalanx. IMPRESSION: Successful reduction of index finger DIP joint dislocation. Possible chip fracture of the index finger distal phalanx. Unchanged volar avulsion fracture of index finger middle phalanx.
--- NOTE | 2020-06-23 14:43 | ED ---
Fall HPI - General Chief Complaint: Fall Stated Complaint: fall, head/finger injury Time Seen by Provider: 06/23/20 13:22 Source: patient Mode of arrival: ambulatory - History of Present Illness Initial Comments: 60-year-old male presenting to emergency Department with chief complaint of a fall. Patient states she was getting out of the car when he lost his balance and fell on the right side of the body. Patient states he has an obvious bony deformity on his right finger. He also reports hitting his head but denies any loss of consciousness. Denies any blood thinners. Denies any numbness or tingling in the finger but the reported obvious bone deformity. Denies any gait imbalance, blurry vision, one-sided weakness paresthesias. Denies any medication to alleviate the symptoms. - Related Data Home Medications Medication Instructions Recorded Confirmed Albuterol Inhaler (Mhu) [Ventolin 1 puff INHALATION RT-DAILY PRN 01/23/15 Hfa Inhaler (Mhu)] Dextroamphetamine/Amphetamine 20 mg PO BID 09/24/17 01/27/19 [Adderall Xr] Atorvastatin Calcium [Lipitor] 40 mg PO DAILY 01/27/19 01/27/19 CHLORPHEN-HYDROcod 8-10mg/5ml 5 ml PO Q12H PRN 01/27/19 01/27/19 [Tussionex] Clopidogrel Bisulfate [Plavix] 75 mg PO DAILY 01/27/19 01/27/19 Previous Rx's Medication Instructions Recorded Apixaban [Eliquis] 5 mg PO BID #60 tab 02/08/19 Diltiazem Oral [Cardizem*] 60 mg PO TID #90 tab 02/08/19 Fluconazole [Diflucan] 100 mg PO BID 7 Days #14 tab 02/08/19 Fluconazole [Diflucan] 100 mg PO BID-W/MEALS 6 Days #12 02/08/19 tab Fluticasone/Salmeterol [Advair 1 inhalation PO BID 30 Days #1 02/08/19 500-50 Diskus] diskus HYDROcodone/APAP 7.5-325MG [[place] 1 each PO Q6H PRN 3 Days #12 tab 02/08/19 7.5-325] Hydrocortisone Suppository 25 mg RECTAL HS #3 supp 02/08/19 [Anusol-Hc] Metoprolol Tartrate [Lopressor] 25 mg PO BID #60 tab 02/08/19 Montelukast [Singulair] 10 mg PO HS #30 tab 02/08/19 Pantoprazole [Protonix] 40 mg PO DAILY #30 tablet. 02/08/19 guaiFENesin-DM 100-10MG/5ML 10 ml PO Q6H PRN #1 bottle 02/08/19 [Robitussin DM] predniSONE 10 mg PO DAILY 16 Days #40 tab 02/08/19 Allergies Allergy/AdvReac Type Severity Reaction Status Date / Time Penicillins Allergy Rash/Hives Verified 06/23/20 13:19 Review of Systems ROS Statement: Those systems with pertinent positive or pertinent negative responses have been documented in the HPI. ROS Other: All systems not noted in ROS Statement are negative. Past Medical History Past Medical History: Asthma, Musculoskeletal Disorder, Pneumonia Additional Past Medical History / Comment(s): HEMOPTYSIS. back spasms, dx. w/C- Diff in July, still w/intermittent diarrhea, hx. mild cardiomyopathy-no treatment for History of Any Multi-Drug Resistant Organisms: None Reported Date of last positivie culture/infection: None MDRO Source:: None Past Surgical History: Heart Catheterization Additional Past Surgical History / Comment(s): CHEST TUBE (Infection, drainage), LEFT KNEE ARTHROSCOPY X3, RIGHT KNEE ARTHROSCOPY X3 LEFT SHOULDER, BONE GRAFT FROM RIGHT HIP TO LEFT ANKLE, BRONCHOSCOPY JAN 2014 Past Anesthesia/Blood Transfusion Reactions: No Reported Reaction Past Psychological History: Anxiety Smoking Status: Never smoker Past Alcohol Use History: None Reported Past Drug Use History: None Reported - Past Family History Mother Family Medical History: Cancer Additional Family Medical History / Comment(s): NON [place] LYMPHOMA MOTHER, BREAST CA HALF SISTER Father Family Medical History: COPD Additional Family Medical History / Comment(s): Father of complications of a MVA. General Exam Limitations: no limitations General appearance: alert, in no apparent distress Head exam: Present: atraumatic, normocephalic, normal inspection. Absent: other (Negative Evangelista sign, raccoon eyes, hemotympanum.) Eye exam: Present: normal appearance, PERRL, EOMI Pupils: Present: normal accommodation ENT exam: Present: normal exam, normal oropharynx, mucous membranes moist, TM's normal bilaterally, normal external ear exam Neck exam: Present: normal inspection, tenderness (Some tenderness in the left paraspinal region of cervical spine.), full ROM Respiratory exam: Present: normal lung sounds bilaterally. Absent: respiratory distress, wheezes, rales, rhonchi, stridor Cardiovascular Exam: Present: regular rate, normal rhythm, normal heart sounds GI/Abdominal exam: Present: soft. Absent: distended, tenderness, guarding Extremities exam: Present: full ROM, tenderness, normal capillary refill, other (+2 ulnar and radial pulses bilateral.). Absent: normal inspection (Obvious bony deformity in the right second digit.), pedal edema, joint swelling, calf tenderness Back exam: Present: normal inspection, full ROM. Absent: tenderness, CVA tenderness (R), CVA tenderness (L) Neurological exam: Present: alert, oriented X3, normal gait Psychiatric exam: Present: normal affect, normal mood Skin exam: Present: warm, dry, intact, normal color Course Vital Signs 06/23/20 13:15 Temperature 98.2 F Pulse Rate 70 Respiratory 20 Rate Blood Pressure 105/77 O2 Sat by Pulse 100 Oximetry Procedures - Nerve Block Consent Obtained: verbal consent Local Anesthetic Used: Lidocaine 1% Amount of anesthesia used: 5 Side: right Nerve Blocks: digital Procedure Successful: Yes Complications: none Patient Tolerated Procedure: well, no complications - Orthopedic Joint Reduction Joint #1 Consent Obtained: verbal consent Side: right Joint Reduction Location: finger (Second digit) Analgesia: digital block Local Anesthetic Used: Lidocaine 1% Amount of Anesthetic Used (mLs): 5 Technique Used: traction/counter-traction Post-Reduction Neuro Exam: intact Post-Reduction Vascular Exam: intact Post Reduction X-Ray Obtained: Yes Post Reduction X-Ray Results: reduced Splint Applied: Yes Patient Tolerated Procedure: well, no complications - Orthopedic Splinting/Casting Injury #1 Side: right Upper Extremity Injury Location: finger Upper Extremity Immobilizer: finger (other) Medical Decision Making - Medical Decision Making 60year-old male presenting to the emergency room with chief complaint of fall. On physical examination, patient has an obvious bony deformity on the right second digit. Posterior dislocation of the dorsal phalange. Digital block was performed and it was able to reduce the dislocation. He also has a small a vulsion fracture on the middle phalanges well. Patient has the finger splinted with a slight flexion. He was advised to follow-up with an health information specialist. He will be discharged with Tylenol 3 starter pack. Advised not to drive or operative machinery when taking the medication. CT of the brain and C- spine is negative for any acute fractures, disc locations, intracranial hemorrhage, midline shift. Patient was initially given a Tylenol 3 for pain. Return parameters thoroughly discussed the patient was resting agreeable. Case discussed with physician. Disposition Clinical Impression: Fall, Head injury, Dislocation, finger closed, Avulsion fracture of middle phalanx of finger Disposition: HOME SELF-CARE Condition: Stable Instructions (If sedation given, give patient instructions): Finger Fracture (ED), Finger Dislocation (ED) Additional Instructions: Alternate between Tylenol and Motrin for pain control. Follow-up with health information specialist. Return to emergency department if symptoms worsen. Is patient prescribed a controlled substance at d/c from ED?: No Referrals: Lopez Branch MD [Primary Care Provider] - 1-2 days Marco Arvizu MD [STAFF PHYSICIAN] - 1-2 days Time of Disposition: 14:43
[2020-06-23] MEDS ORDERED: ACET/COD 300 MG/30 MG STARTER PACK 6 TAB BTL PO STA (15:06)
== END 2020-06-23 15:17 | disposition home or self-care (01) ==
LOC: EC 13:01
DX: S63.290A Dislocation of distal interphalangeal joint of right index finger, initial encounter (principal); S62.620A Displaced fracture of middle phalanx of right index finger, initial encounter for closed fracture; S09.90XA Unspecified injury of head, initial encounter; F41.9 Anxiety disorder, unspecified; J45.909 Unspecified asthma, uncomplicated; Z79.899 Other long term (current) drug therapy; Z88.0 Allergy status to penicillin; Z95.5 Presence of coronary angioplasty implant and graft; W01.10XA Fall on same level from slipping, tripping and stumbling with subsequent striking against unspecified object, initial encounter; Y93.89 Activity, other specified
CPT/HCPCS: 73140; 72125; 70450; 99284; 26770; J2001

== ENCOUNTER → 2021-10-18 | Outpatient (CLI) | payer BC ==
[2021-10-18 11:39] LABS: Partial Thromboplastin Time 23.9 sec (22.0-30.0); Prothrombin Time 10.9 sec (9.0-12.0)
[2021-10-18 16:08] LABS: HCT 47.3 % (39.6-50.0); HGB 15.7 g/dL (13.0-17.0); MCH 29.5 pg (27.0-32.0); MCHC 33.2 g/dL (32.0-37.0); MCV 88.7 fL (80.0-97.0); Mean Platelet Volume 9.9 fL (9.5-12.2); NRBC Per 100 WBC 0 /100 WBCS (0.0-0.0); Platelet Count 252 X 10*3/uL (140-440); RBC 5.33 X 10*6/uL (4.40-5.60); RDW 12.9 % (11.5-14.5); WBC 7.65 X 10*3/uL (4.50-10.00)
[2021-10-18 18:57] LABS: ALT 17 U/L (10-49); AST 20 U/L (14-35); African American GFR (CKD) 111.7 (60.0-200.0); Albumin 4.2 g/dL (3.8-4.9); Albumin/Globulin Ratio 1.68 (1.60-3.17); Alkaline Phosphatase 86 U/L (41-126); BUN/Creat Ratio 22.13 Ratio (12.00-20.00); Blood Urea Nitrogen 17.7 mg/dL (9.0-27.0); Calcium 9.1 mg/dL (8.7-10.3); Carbon Dioxide 23.1 mmol/L (20.0-27.5); Chloride 106 mmol/L (96-109); Chol/HDL Ratio 3.32 Ratio; Globulin 2.5 g/dL (1.6-3.3); Glucose 91 mg/dL (70-110); LDL Cholesterol,Calculated 130.6 mg/dL (0.0-131.0); Non-African American GFR(CKD) 96.4 (60.0-200.0); Sodium 140 mmol/L (135-145); Total Protein 6.7 g/dL (6.2-8.2); VLDL Calculation 10.62 mg/dL (5.00-40.00)
== END | disposition home or self-care (01) ==
LOC: LABWHC1 10:01
PROVIDERS: ATTEND Orthopaedic Surgery
DX: Z01.812 Encounter for preprocedural laboratory examination (principal); M12.9 Arthropathy, unspecified; D64.9 Anemia, unspecified
CPT/HCPCS: 36415; 80053; 80061; 83036; 85027; 85610; 85730; 86850; 86900; 86901; 87070

== ENCOUNTER → 2022-06-06 | Outpatient (CLI) | payer BC ==
--- NOTE | 2022-06-06 19:02 | XR ---
EXAMINATION TYPE: XR chest 2V DATE OF EXAM: 06/06/2022 5:09 PM COMPARISON: Chest radiographs from 02/03/2019 TECHNIQUE: XR chest 2V Frontal and lateral views of the chest. CLINICAL INDICATION:Male, 62 years old with history of J45.41 MODERATE PERSISTENT ASTHMA WITH (ACUTE) EXA; FINDINGS: Lungs/Pleura: There is no evidence of pleural effusion, focal consolidation, or pneumothorax. Pulmonary vascularity: Unremarkable. Heart/mediastinum: Cardiomediastinal silhouette is unremarkable. Atrial septal defect closure device. Musculoskeletal: No acute osseous pathology. IMPRESSION: No acute cardiopulmonary disease/process.
== END | disposition home or self-care (01) ==
LOC: RADXRMAIN 16:59
PROVIDERS: ATTEND Family Medicine
DX: J45.41 Moderate persistent asthma with (acute) exacerbation (principal)
CPT/HCPCS: 71046

== ENCOUNTER → 2023-01-29 | Outpatient (CLI) | payer BC ==
--- NOTE | 2023-01-29 12:40 | US ---
EXAMINATION TYPE: US venous doppler duplex LE LT DATE OF EXAM: 01/29/2023 12:26 PM COMPARISON: US 2018 CLINICAL INDICATION: Male, 62 years old with history of R22.42 SWELLING, MASS AND LUMP; Swelling. No hx of DVT. Patient is on aspirin. Patient had left knee replacement in 2016, revision done this month January 2023. SIDE PERFORMED: Left TECHNIQUE: The lower extremity deep venous system is examined utilizing real time linear array sonog jinny with graded compression, doppler sonography and color-flow sonography. VESSELS IMAGED: Common Femoral Vein Deep Femoral Vein Greater Saphenous Vein * Femoral Vein Popliteal Vein Small Saphenous Vein * Proximal Calf Veins (* superficial vessels) Left Leg: No evidence of DVT. IMPRESSION: No evidence for DVT at this time.
== END | disposition home or self-care (01) ==
LOC: RADUSWWP 11:34
PROVIDERS: ATTEND Orthopaedic Surgery
DX: R22.42 Localized swelling, mass and lump, left lower limb (principal); Z79.82 Long term (current) use of aspirin; Z96.652 Presence of left artificial knee joint

== ENCOUNTER → 2024-04-18 | Outpatient (CLI) | payer BC ==
--- NOTE | 2024-04-18 13:16 | XR ---
EXAMINATION TYPE: XR chest 2V DATE OF EXAM: 04/18/2024 1:12 PM COMPARISON: Chest radiographs from 06/06/2022 CLINICAL INDICATION: Male, 64 years old with history of J20.9; [facility] TECHNIQUE: XR chest 2V Frontal and lateral views of the chest. FINDINGS: Lungs/Pleura: There is no evidence of pleural effusion, focal consolidation, or pneumothorax. Pulmonary vascularity: Unremarkable. Heart/mediastinum: Cardiomediastinal silhouette is unremarkable. Atrial septal defect occlusion devic e present. Musculoskeletal: No acute osseous pathology. Other findings: None IMPRESSION: No acute cardiopulmonary disease/process. [facility], , 04/18/2024 1:13 PM
== END | disposition home or self-care (01) ==
LOC: RADXRMAIN 13:01
PROVIDERS: ATTEND Nurse Practitioner Family
DX: J20.9 Acute bronchitis, unspecified (principal)
CPT/HCPCS: 71046